=== PATIENT | male | born 1965 | race Caucasian/White ===

== ENCOUNTER → 2016-03-03 | Outpatient (CLI) | payer MEDICAID ==
[2016-03-03 12:47] LABS: ABSOLUTE EOSINOPHILS # (AUTO) 0.1 10^3/uL (0.0-0.6); ABSOLUTE LYMPHOCYTES (AUTO) 2.5 10^3/uL (0.5-4.7); ABSOLUTE MONOCYTES (AUTO) 0.7 10^3/uL (0.1-1.4); ABSOLUTE NEUT (AUTO) 5.7 10^3/uL (1.7-8.2); BASOPHILS % (AUTO) 0.5 % (0-2); EOSINOPHILS % (AUTO) 0.7 % (0-6); HEMATOCRIT 45.1 % (37.9-51.0); HEMOGLOBIN 14.9 g/dL (13.5-17.0); HGB HCT DIFFERENCE -0.4; LYMPHOCYTES % (AUTO) 27.2 % (13-45); MEAN CORPUSCULAR HGB CONC 33.1 g/dL (32.0-36.0); MEAN CORPUSCULAR VOLUME 91 fl (80-97); MONOCYTES % (AUTO) 8.1 % (3-13); RED BLOOD COUNT 4.97 10^6/uL (4.35-5.55); RED CELL DISTRIBUTION WIDTH 13.6 % (11.5-14.0); SEGMENTED NEUTROPHILS % (AUTO) 63.5 % (42-78)
[2016-03-03 12:53] LABS: PROTHROMBIN TIME 12.9 SEC (11.4-15.4)
[2016-03-03 12:54] LABS: PARTIAL THROMBOPLASTIN TIME 30.5 SEC (23.5-35.8)
[2016-03-03 13:13] LABS: ALANINE AMINOTRANSFERASE 24 U/L (21-72); ALBUMIN 4.9 g/dL (3.5-5.0); ALKALINE PHOSPHATASE 92 U/L (38-126); ANION GAP 14 (5-19); ASPARTATE AMINO TRANSFERASE 17 U/L (17-59); BILIRUBIN,TOTAL 0.7 mg/dL (0.2-1.3); BLOOD UREA NITROGEN 13 mg/dL (7-20); CARBON DIOXIDE 29 mmol/L (22-30); CHLORIDE 101 mmol/L (98-107); CREATININE RESULT 0.85 mg/dL (0.52-1.25); GLUCOSE 96 mg/dL (75-110); POTASSIUM 5.3 mmol/L (3.6-5.0); TOTAL PROTEIN 8.4 g/dL (6.3-8.2)
== END ==
LOC: OD 12:12
PROVIDERS: ATTEND Surgery
DX: I10 Essential (primary) hypertension (principal); Z86.19 Personal history of other infectious and parasitic diseases
CPT/HCPCS: 36415; 80053; 85025; 85610; 85730

== ENCOUNTER → 2016-03-09 | Outpatient (CLI) | payer MEDICAID | LOC: RAD 08:29 | PROVIDERS: ATTEND Surgery | DX: R10.9 Unspecified abdominal pain (principal); Z86.19 Personal history of other infectious and parasitic diseases; N20.0 Calculus of kidney; N28.1 Cyst of kidney, acquired | CPT/HCPCS: 74177 ==

== ENCOUNTER 2016-04-08 11:05 | Day surgery (SDC) | payer MEDICAID ==
--- NOTE | 2016-04-02 18:09 | EKG REPORT ---
SEVERITY:- OTHERWISE NORMAL ECG - SINUS OR ECTOPIC ATRIAL RHYTHM : Confirmed by: Carly Spain MD 02-Apr-2016 18:07:50
[~2016-04-08 11:05] MED LIST: ACETAMINOPHEN 325 MG TABLET PO PRN; CEFAZOLIN 1 GM/D5W RTU 1 GM/50 ML RTUPB IV PRN; DEXAMETHASONE SOD PHOSPHATE INJ 4 MG/1 ML VIAL ONE; GLYCOPYRROLATE INJ 0.4 MG/2 ML VIAL ONE; KETOROLAC TROMETHAMINE 60 MG/2 ML SDV ONE; LACTATED RINGERS 1000 ML IV PRN; LIDOCAINE 0.5% INJ-PF (5 MG/ML) 50 ML SDV SUBCUT PRN; LIDOCAINE 2% INJ-PF (20 MG/ML) 10 ML AMPUL ONE; METOCLOPRAMIDE HCL INJ/PF 10 MG/2 ML SDV ONE; NEOSTIGMINE METHYLSULFATE 10 MG/10 ML VIAL ONE; ONDANSETRON HCL INJ/PF 4 MG/2 ML SDV ONE; ROCURONIUM BROMIDE INJ 50 MG/5 ML VIAL IV ONE; SUCCINYLCHOLINE CHLORIDE INJ 200 MG/10 ML VIAL ONE
[2016-04-08] MEDS ORDERED: BUPIVACAINE HCL 0.25 % INJ/PF (2.5 MG/1 ML) 30 ML VIAL ONE (12:40)
[2016-04-08] MEDS ORDERED: HYDROMORPHONE HCL INJ/PF 2 MG/ML AMPULE ONE (13:35)
[2016-04-08] MEDS ORDERED: FENTANYL CITRATE INJ/PF 100 MCG/2 ML AMPUL ONE ×2 (13:35→13:52)
[2016-04-08] MEDS ORDERED: MIDAZOLAM 2 MG/2 ML INJ ONE (13:35)
[2016-04-08] MEDS ORDERED: PROPOFOL INJ 200 MG/20 ML VIAL IV ONE (13:36)
[2016-04-08] MEDS ORDERED: ACETAMINOPHEN 100 ML IV ONE (13:36)
[2016-04-08] MEDS ORDERED: MORPHINE SULFATE 10 MG/ML INJ ONE (13:52)
[2016-04-08] MEDS ORDERED: DEXMEDETOMIDINE INJ 80 MCG/20 ML VIAL IV ONE (13:52)
[2016-04-08] MEDS ORDERED: OXYCODONE-ACETAMINOPHEN 5-325 MG TABLET PO PRN ×3 (15:15→15:47)
[2016-04-08] MEDS ORDERED: FENTANYL CITRATE INJ/PF 100 MCG/2 ML AMPUL IV PRN ×3 (15:15)
[2016-04-08] MEDS ORDERED: PROMETHAZINE HCL INJ 25 MG/1 ML VIAL IV PRN ×2 (15:15)
[2016-04-08] MEDS ORDERED: MORPHINE SULFATE 10 MG/ML INJ IV PRN (15:15)
[2016-04-08] MEDS ORDERED: MEPERIDINE HCL/PF INJ 25 MG/1 ML DISP.SYRIN IV PRN (15:15)
[2016-04-08] MEDS ORDERED: DIPHENHYDRAMINE HCL 50 MG/ML VIAL IV PRN (15:15)
--- NOTE | 2016-04-08 15:44 | Operative Report ---
Operative Report DATE OF SURGERY: 04/08/16 PREOPERATIVE DIAGNOSIS: Ventral hernia POSTOPERATIVE DIAGNOSIS: Ventral hernia OPERATION: Ventral hernia repair SURGEON: KEN STEELE ANESTHESIA: GA TISSUE REMOVED OR ALTERED: Hernia sac COMPLICATIONS: None ESTIMATED BLOOD LOSS: minimal INTRAOPERATIVE FINDINGS: Herniation of preperitoneal fat about 4 cm above the umbilicus. PROCEDURE: Informed consent was obtained. Patient was brought to the operating room and placed on the operating room table in the supine position. After satisfactory induction of general anesthesia patient's abdomen was prepped and draped in usual sterile fashion. A supraumbilical midline incision was made and dissection was carried down. Hernia sac was identified it measured about 3 cm in size it was dissected free from the surrounding structures and the fascial defect was defined. The fascial defect only measured about 1.5 cm in size. The hernia sac was opened revealing no incarcerated contents but the hernia sac was composed of very thickened fatty preperitoneal fat. The hernia sac was excised and hernia sac was closed using running Vicryl suture. The fascial defect since it was small was repaired using interrupted Ethibond sutures with the closure oriented in the transverse direction. The repair came together well without any tension. The repair appeared secure. Marcaine was injected at the operative site. Skin was closed with deep dermal interrupted Vicryl sutures followed by running subcuticular Monocryl suture. Patient tolerated procedure well with no apparent complications and was taken to the recovery area in stable condition.
[2016-04-08] MEDS ORDERED: RINGERS SOLUTION,LACTATED 1,000 ML IV PRN (15:47)
[2016-04-08] MEDS ORDERED: ONDANSETRON HCL INJ/PF 4 MG/2 ML SDV IV PRN (15:47)
--- NOTE | 2016-04-08 15:47 | PDOC DISCHARGE SUMMARY ---
Discharge Summary (SDC) - Discharge Final Diagnosis: Ventral hernia. Date of Surgery: 04/08/16 Discharge Date: 04/08/16 Condition: Good Treatment or Instructions: Ventral hernia repair. May discharge the patient home when met discharge criteria. Follow-up with me in 2 weeks. Stay active but avoid strenuous activity. May shower in 2 days. Keep Steri-Strips on. Prescriptions: Oxycodone HCl/Acetaminophen [Percocet 5-325 mg Tablet] 1 tab PO ASDIR PRN #25 tablet PRN Reason: Discharge Diet: As Tolerated Discharge Activity: Activity As Tolerated - Stay active but avoid strenuous activity. Report the Following to Your Physician Immediately: Fever over 101 Degrees, Unusual Bleeding, Redness, Drainage-Foul Smelling
[2016-04-08] MEDS: FENTANYL CITRATE INJ/PF 100 MCG/2 ML AMPUL ONE ×2 (15:56→16:01)
[2016-04-08 17:31] VITALS: BP 156/91
== END 2016-04-08 17:30 | disposition home or self-care (01) ==
LOC: OROUT 11:05
PROVIDERS: ATTEND Surgery
PROC: 0WQF0ZZ Repair Abdominal Wall, Open Approach (ICD-10-PCS; principal; 2016-04-08 13:30)
DX: K43.9 Ventral hernia without obstruction or gangrene (principal); I10 Essential (primary) hypertension; K21.9 Gastro-esophageal reflux disease without esophagitis; Z86.19 Personal history of other infectious and parasitic diseases; M19.90 Unspecified osteoarthritis, unspecified site; Z87.891 Personal history of nicotine dependence; Z79.899 Other long term (current) drug therapy; Z79.51 Long term (current) use of inhaled steroids; Z88.8 Allergy status to other drugs, medicaments and biological substances
CPT/HCPCS: 93005; 36415; 84132; 88302 ×2; 93010; 49560; J2250; J0690; J3490 ×4; J1100; J1885; J3010; J2765; J0330; J2405; S0020; J2704; J0131; 752; J1170; J2270

== ENCOUNTER 2016-08-14 00:46 | Emergency (ER) | payer MEDICAID ==
[2016-08-14 01:33] LABS: APPEARANCE,URINE CLEAR; BILIRUBIN,URINE NEGATIVE (NEGATIVE); GLUCOSE, URINE NEGATIVE (NEGATIVE); KETONES,URINE NEGATIVE (NEGATIVE); LEUKOCYTE ESTERASE,URINE NEGATIVE (NEGATIVE); NITRITE,URINE NEGATIVE (NEGATIVE); PROTEIN,URINE NEGATIVE (NEGATIVE); URINE SPECIFIC GRAVITY 1.002; UROBILINOGEN,URINE NEGATIVE mg/dL (<2.0)
[2016-08-14 01:37] LABS: ABSOLUTE LYMPHOCYTES (AUTO) 2.1 10^3/uL (0.5-4.7); ABSOLUTE MONOCYTES (AUTO) 0.5 10^3/uL (0.1-1.4); ABSOLUTE NEUT (AUTO) 5.7 10^3/uL (1.7-8.2); BASOPHILS % (AUTO) 0.4 % (0-2); EOSINOPHILS % (AUTO) 0.3 % (0-6); HEMATOCRIT 43.5 % (37.9-51.0); HEMOGLOBIN 14.7 g/dL (13.5-17.0); HGB HCT DIFFERENCE 0.6; LYMPHOCYTES % (AUTO) 24.8 % (13-45); MEAN CORPUSCULAR HEMOGLOBIN 31.1 pg (27.0-33.4); MEAN CORPUSCULAR HGB CONC 33.8 g/dL (32.0-36.0); MEAN CORPUSCULAR VOLUME 92 fl (80-97); MONOCYTES % (AUTO) 5.9 % (3-13); RED BLOOD COUNT 4.73 10^6/uL (4.35-5.55); RED CELL DISTRIBUTION WIDTH 14.5 % (11.5-14.0); SEGMENTED NEUTROPHILS % (AUTO) 68.6 % (42-78); WHITE BLOOD COUNT 8.3 10^3/uL (4.0-10.5)
[2016-08-14 01:44] LABS: URINE BARBITURATES SCREEN NEGATIVE; URINE METHADONE SCREEN NEGATIVE; URINE OPIATES LOW NEGATIVE; URINE PHENCYCLIDINE SCREEN NEGATIVE
[2016-08-14 01:52] LABS: ALANINE AMINOTRANSFERASE 29 U/L (21-72); ALBUMIN 5.1 g/dL (3.5-5.0); ALCOHOL 194 mg/dL (NONE DETECTED); ALKALINE PHOSPHATASE 71 U/L (38-126); ANION GAP 19 (5-19); ASPARTATE AMINO TRANSFERASE 28 U/L (17-59); BILIRUBIN,DIRECT 0.3 mg/dL (0.0-0.4); BILIRUBIN,TOTAL 0.6 mg/dL (0.2-1.3); BLOOD UREA NITROGEN 10 mg/dL (7-20); CARBON DIOXIDE 19 mmol/L (22-30); CHLORIDE 105 mmol/L (98-107); CREATININE RESULT 0.69 mg/dL (0.52-1.25); GLUCOSE 98 mg/dL (75-110); POTASSIUM 3.7 mmol/L (3.6-5.0); SODIUM 142.9 mmol/L (137-145); TOTAL PROTEIN 8.2 g/dL (6.3-8.2)
[2016-08-14] MEDS ORDERED: LORAZEPAM INJ 2 MG/1 ML VIAL IV ONE (01:52)
[2016-08-14] MEDS ORDERED: HALOPERIDOL LACTATE INJ 5 MG/1 ML VIAL IM ONE (01:52)
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
[2016-08-14] MEDS ORDERED: GABAPENTIN 300 MG CAPSULE PO SCH (06:00)
--- NOTE | 2016-08-14 07:36 | ER Document Report ---
Doctor's Note Notes: 08/14/16 07:35 I was notified that the patient is hypotensive, blood pressure is 81/40, I did note that the patient is resting comfortably. Patient was bolused 1 L initially a second liter has been ordered now, he admits that he has a history of high blood pressure and took his lisinopril last night, patient denies taking more than he was supposed to, denies attempting to harm himself with blood pressure medication
[2016-08-14] MEDS: NORMAL SALINE 1000 ML 1,000 ML IV PRN ×2 (07:39→08:38)
[2016-08-14] MEDS ORDERED: NORMAL SALINE 1000 ML 1,000 ML IV ONE (08:33)
--- NOTE | 2016-08-14 09:19 | EKG REPORT ---
SEVERITY:- OTHERWISE NORMAL ECG - SINUS RHYTHM BORDERLINE RIGHT AXIS DEVIATION : Confirmed by: Rowdy Lopez MD 14-Aug-2016 09:17:34
--- NOTE | 2016-08-14 09:38 | RADIOLOGY REPORT (SQ) ---
EXAM DESCRIPTION: CT HEAD WITHOUT COMPLETED DATE/TIME: 08/14/2016 9:23 am REASON FOR STUDY: falling COMPARISON: September 2014 TECHNIQUE: Axial images acquired through the brain without intravenous contrast. Images reviewed wi th bone, brain and subdural windows. Images stored on PACS. All CT scanners at this facility use dose modulation, iterative reconstruction, and/or weight based d osing when appropriate to reduce radiation dose to as low as reasonably achievable (ALARA). [facility]: Dose Right [facility]: CareDose [facility]: Dose Right [facility]: Teradose 4D [facility]: [place] RADIATION DOSE: Up-to-date CT equipment and radiation dose reduction techniques were employed. CTDIv ol: 64.6 mGy. DLP: 1163 mGy-cm. mGy. LIMITATIONS: None. FINDINGS: VENTRICLES: Normal size and contour. CEREBRUM: No masses. No hemorrhage. No midline shift. Normal lowe/white matter differentiation. N o evidence for acute infarction. CEREBELLUM: No masses. No hemorrhage. No alteration of density. No evidence for acute infarction. EXTRAAXIAL SPACES: No fluid collections. No masses. ORBITS AND GLOBE: No intra- or extraconal masses. Normal contour of globe without masses. CALVARIUM: No fracture. PARANASAL SINUSES: No fluid or mucosal thickening. SOFT TISSUES: No mass or hematoma. OTHER: No other significant finding. IMPRESSION: NORMAL BRAIN CT WITHOUT CONTRAST. TECHNICAL DOCUMENTATION: JOB ID: [id number] Quality ID # [id number]: Final reports with documentation of one or more dose reduction techniques (e.g., Au tomated exposure control, adjustment of the mA and/or kV according to patient size, use of iterative reconstruction technique) 2010 [employer]- All Rights Reserved
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
--- NOTE | 2016-08-14 09:56 | RADIOLOGY REPORT (SQ) ---
EXAM DESCRIPTION: CHEST SINGLE VIEW COMPLETED DATE/TIME: 08/14/2016 9:45 am REASON FOR STUDY: chest pain COMPARISON: April 2014 EXAM PARAMETERS: NUMBER OF VIEWS: One view. TECHNIQUE: Single frontal radiographic view of the chest acquired. RADIATION DOSE: NA LIMITATIONS: None. FINDINGS: LUNGS AND PLEURA: No opacities, masses or pneumothorax. No pleural effusion. MEDIASTINUM AND HILAR STRUCTURES: No masses. Contour normal. HEART AND VASCULAR STRUCTURES: Heart normal in size. Normal vasculature. BONES: No acute findings. HARDWARE: None in the chest. OTHER: No other significant finding. IMPRESSION: NO ACUTE RADIOGRAPHIC FINDING IN THE CHEST. TECHNICAL DOCUMENTATION: JOB ID: [id number]
[2016-08-14] MEDS ORDERED: LISINOPRIL 10 MG TABLET PO SCH (10:00)
[2016-08-14] MEDS ORDERED: HYDROCHLOROTHIAZIDE 12.5 MG CAPSULE PO SCH (10:00)
[2016-08-14 10:37] LABS: ABSOLUTE EOSINOPHILS # (AUTO) 0.1 10^3/uL (0.0-0.6); ABSOLUTE LYMPHOCYTES (AUTO) 1.9 10^3/uL (0.5-4.7); ABSOLUTE MONOCYTES (AUTO) 0.4 10^3/uL (0.1-1.4); ABSOLUTE NEUT (AUTO) 3.4 10^3/uL (1.7-8.2); BASOPHILS % (AUTO) 0.4 % (0-2); HEMATOCRIT 39.4 % (37.9-51.0); HEMOGLOBIN 13.2 g/dL (13.5-17.0); HGB HCT DIFFERENCE 0.2; LYMPHOCYTES % (AUTO) 33.3 % (13-45); MEAN CORPUSCULAR HEMOGLOBIN 31.5 pg (27.0-33.4); MEAN CORPUSCULAR HGB CONC 33.6 g/dL (32.0-36.0); MEAN CORPUSCULAR VOLUME 94 fl (80-97); MONOCYTES % (AUTO) 6.7 % (3-13); RED CELL DISTRIBUTION WIDTH 14.3 % (11.5-14.0); SEGMENTED NEUTROPHILS % (AUTO) 58.6 % (42-78); WHITE BLOOD COUNT 5.7 10^3/uL (4.0-10.5)
[2016-08-14 11:00] LABS: ALANINE AMINOTRANSFERASE 32 U/L (21-72); ALKALINE PHOSPHATASE 64 U/L (38-126); ANION GAP 12 (5-19); ASPARTATE AMINO TRANSFERASE 44 U/L (17-59); BILIRUBIN,DIRECT 0.3 mg/dL (0.0-0.4); BILIRUBIN,TOTAL 0.5 mg/dL (0.2-1.3); BLOOD UREA NITROGEN 12 mg/dL (7-20); CALCIUM 8.6 mg/dL (8.4-10.2); CARBON DIOXIDE 19 mmol/L (22-30); CHLORIDE 114 mmol/L (98-107); CREATINE KINASE 519 U/L (55-170); CREATININE RESULT 0.84 mg/dL (0.52-1.25); GLUCOSE 79 mg/dL (75-110); POTASSIUM 3.9 mmol/L (3.6-5.0); SODIUM 144.7 mmol/L (137-145); TOTAL PROTEIN 6.8 g/dL (6.3-8.2)
[2016-08-14 11:13] LABS: CREATINE KINASE MB 4.73 ng/mL (<4.55)
[2016-08-14 11:14] LABS: TROPONIN I < 0.012 ng/mL
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
[2016-08-14 12:31] VITALS: BP 106/53
--- NOTE | 2016-08-14 16:39 | EKG REPORT ---
SEVERITY:- OTHERWISE NORMAL ECG - SINUS RHYTHM BORDERLINE RIGHT AXIS DEVIATION : Confirmed by: Rowdy Lopez MD 14-Aug-2016 16:38:45
== END 2016-08-14 12:43 | disposition home or self-care (01) ==
LOC: ER 00:46
DX: R45.851 Suicidal ideations (principal); F10.20 Alcohol dependence, uncomplicated; F13.99 Sedative, hypnotic or anxiolytic use, unspecified with unspecified sedative, hypnotic or anxiolytic-induced disorder; I10 Essential (primary) hypertension; J44.9 Chronic obstructive pulmonary disease, unspecified
CPT/HCPCS: 93005; 99285; 96372; 96361; 96374; 36415; 82553; 80307 ×4; 82550; 84443; 85025; 80053; 81001; 84484; 71010; 70450; 93010; J1630; J3490; J2060; J7030

== ENCOUNTER 2016-11-24 09:44 | Day surgery (SDC) | payer MEDICAID ==
[~2016-11-24 09:44] MED LIST changes: -ACETAMINOPHEN 325 MG TABLET PO PRN; -CEFAZOLIN 1 GM/D5W RTU 1 GM/50 ML RTUPB IV PRN; +CHONDR SU A NA/HYALUR INTRAOC KIT (SURGICARE) ONE; -DEXAMETHASONE SOD PHOSPHATE INJ 4 MG/1 ML VIAL ONE; +EPINEPHRINE INJ/PF 1 MG/1 ML AMPULE ONE; -GLYCOPYRROLATE INJ 0.4 MG/2 ML VIAL ONE; +KETOROLAC TROMETHAMINE 0.45% 4 DROP/0.4 ML DROPERETTE OD PRN; -KETOROLAC TROMETHAMINE 60 MG/2 ML SDV ONE; -LACTATED RINGERS 1000 ML IV PRN; -LIDOCAINE 0.5% INJ-PF (5 MG/ML) 50 ML SDV SUBCUT PRN; +LIDOCAINE 1% INJ-PF (10 MG/ML) 30 ML SDV ONE; -LIDOCAINE 2% INJ-PF (20 MG/ML) 10 ML AMPUL ONE; -METOCLOPRAMIDE HCL INJ/PF 10 MG/2 ML SDV ONE; -NEOSTIGMINE METHYLSULFATE 10 MG/10 ML VIAL ONE; -ONDANSETRON HCL INJ/PF 4 MG/2 ML SDV ONE; -ROCURONIUM BROMIDE INJ 50 MG/5 ML VIAL IV ONE; -SUCCINYLCHOLINE CHLORIDE INJ 200 MG/10 ML VIAL ONE; +TOBRAMYCIN SULFATE/DEXAMETH OPH OINTMENT 3.5 GM ONE
[2016-11-24] MEDS: BESIFLOXACIN HCL 0.6% OPH SUSP 5 ML BOTTLE OD PRN ×3 (10:02→10:54)
[2016-11-24] MEDS: CYCLOPENTOLATE 0.2%/PHENYLEPHRINE 1% OPH SOLN 2 ML OD PRN ×3 (10:02→10:22)
[2016-11-24] MEDS: TROPICAMIDE 1% OPH SOLN 3 ML OD PRN ×3 (10:02→10:22)
[2016-11-24] MEDS: TETRACAINE HCL 0.5% OPH SOLN 0.6 ML DROPERETTE OD PRN ×3 (10:03→10:37)
[2016-11-24] MEDS ORDERED: MIDAZOLAM 2 MG/2 ML INJ ONE (10:26)
== END 2016-11-24 11:27 | disposition home or self-care (01) ==
LOC: SC 09:44
PROVIDERS: ATTEND Ophthalmology
PROC: 08RJ3JZ Replacement of Right Lens with Synthetic Substitute, Percutaneous Approach (ICD-10-PCS; principal; 2016-11-24 10:45)
DX: H25.11 Age-related nuclear cataract, right eye (principal); F17.210 Nicotine dependence, cigarettes, uncomplicated; M19.90 Unspecified osteoarthritis, unspecified site; I10 Essential (primary) hypertension; H53.459 Other localized visual field defect, unspecified eye; J44.9 Chronic obstructive pulmonary disease, unspecified; R01.1 Cardiac murmur, unspecified; K21.9 Gastro-esophageal reflux disease without esophagitis; Z79.899 Other long term (current) drug therapy; Z79.891 Long term (current) use of opiate analgesic
CPT/HCPCS: 66984; V2630; J2250; J3490 ×5; J0171; 142

== ENCOUNTER 2017-02-11 16:18 | Emergency (ER) | payer MEDICAID ==
[2017-02-11] MEDS ORDERED: HALOPERIDOL LACTATE INJ 5 MG/1 ML VIAL IM ONE (16:20)
[2017-02-11] MEDS ORDERED: DIPHENHYDRAMINE HCL 50 MG/ML VIAL IM ONE (16:20)
[2017-02-11] MEDS ORDERED: LORAZEPAM INJ 2 MG/1 ML VIAL IM ONE (16:20)
[2017-02-11] MEDS ORDERED: DIPH/PERTUSS(ACELL)/TETANUS VAC/PF 0.5 ML SYR (>=10YO) IM ONE (16:23)
[2017-02-11] MEDS ORDERED: LIDOCAINE 1%/EPINEPHRINE INJ 20 ML VIAL INJ ONE (16:24)
--- NOTE | 2017-02-11 17:00 | RADIOLOGY REPORT (SQ) ---
EXAM DESCRIPTION: CT HEAD WITHOUT COMPLETED DATE/TIME: 02/11/2017 4:52 pm REASON FOR STUDY: head injury, agitated COMPARISON: None. TECHNIQUE: Axial images acquired through the brain without intravenous contrast. Images reviewed wi th bone, brain and subdural windows. Images stored on PACS. All CT scanners at this facility use dose modulation, iterative reconstruction, and/or weight based d osing when appropriate to reduce radiation dose to as low as reasonably achievable (ALARA). [facility]: Dose Right [facility]: CareDose [facility]: Dose Right [facility]: Teradose 4D [facility]: Smart [employer] RADIATION DOSE: CT Rad equipment meets quality standard of care and radiation dose reduction techniq ues were employed. CTDIvol: 64.6 mGy. DLP: 1163 mGy-cm. mGy. LIMITATIONS: None. FINDINGS: VENTRICLES: Normal size and contour. CEREBRUM: No masses. No hemorrhage. No midline shift. No evidence for acute infarction. Normal gra y/white matter differentiation. No areas of low density in the white matter. CEREBELLUM: No masses. No hemorrhage. No alteration of density. No evidence for acute infarction. EXTRAAXIAL SPACES: No fluid collections. No masses. ORBITS AND GLOBE: No intra- or extraconal masses. Normal contour of globe without masses. CALVARIUM: No fracture. PARANASAL SINUSES: No fluid or mucosal thickening. SOFT TISSUES: No mass or hematoma. OTHER: Nasal bone fractures. IMPRESSION: No acute intracranial process. EVIDENCE OF ACUTE STROKE: NO. COMMENT: Quality ID # [id number]: Final reports with documentation of one or more dose reduction techniques (e.g., Automated exposure control, adjustment of the mA and/or kV according to patient size, use of iterative reconstruction technique) TECHNICAL DOCUMENTATION: JOB ID: [id number] [employer]- All Rights Reserved
--- NOTE | 2017-02-11 17:01 | RADIOLOGY REPORT (SQ) ---
EXAM DESCRIPTION: CT FACIAL AREA WITHOUT COMPLETED DATE/TIME: 02/11/2017 4:51 pm REASON FOR STUDY: head injury, agitated COMPARISON: None. TECHNIQUE: Noncontrasted images through the facial bones and orbits windowed for bone and soft tissu e. Additional coronal and sagittal reconstructed images reviewed. All images stored on PACS. All CT scanners at this facility use dose modulation, iterative reconstruction, and/or weight based d osing when appropriate to reduce radiation dose to as low as reasonably achievable (ALARA). [facility]: Dose Right [facility]: CareDose [facility]: Dose Right [facility]: Teradose 4D [facility]: Smart [employer] RADIATION DOSE: CT Rad equipment meets quality standard of care and radiation dose reduction techniq ues were employed. CTDIvol: 30.4 mGy. DLP: 699 mGy-cm. mGy. LIMITATIONS: None. FINDINGS: FACIAL BONES: Comminuted minimally displaced nasal bone fractures. ORBITS: Intact. No fracture. Symmetric intact globes and retroorbital soft tissues. PARANASAL SINUSES: Clear. No significant mucosal thickening, mass or fluid. No nasal polyps. Maxill coco sinus outlets are patent. SOFT TISSUES: No mass or edema. INFERIOR BRAIN: Limited view. No acute findings. OTHER: No other significant finding. IMPRESSION: Comminuted minimally displaced nasal bone fractures. TECHNICAL DOCUMENTATION: JOB ID: [id number] Quality ID # [id number]: Final reports with documentation of one or more dose reduction techniques (e.g., Au tomated exposure control, adjustment of the mA and/or kV according to patient size, use of iterative reconstruction technique) 2010 [employer]- All Rights Reserved
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
[2017-02-11] MEDS ORDERED: LIDOCAINE 2%/EPINEPHRINE INJ 20 ML VIAL INJ ONE (17:19)
[2017-02-11 18:03] LABS: ABSOLUTE LYMPHOCYTES (AUTO) 1.8 10^3/uL (0.5-4.7); ABSOLUTE MONOCYTES (AUTO) 0.4 10^3/uL (0.1-1.4); ABSOLUTE NEUT (AUTO) 7.3 10^3/uL (1.7-8.2); ALANINE AMINOTRANSFERASE 88 U/L (21-72); ALBUMIN 4.7 g/dL (3.5-5.0); ALCOHOL 246 mg/dL (NONE DETECTED); ALKALINE PHOSPHATASE 78 U/L (38-126); ASPARTATE AMINO TRANSFERASE 57 U/L (17-59); BASOPHILS % (AUTO) 0.2 % (0-2); BILIRUBIN,DIRECT 0.3 mg/dL (0.0-0.4); BILIRUBIN,TOTAL 0.4 mg/dL (0.2-1.3); BLOOD UREA NITROGEN 11 mg/dL (7-20); EOSINOPHILS % (AUTO) 0.3 % (0-6); GLUCOSE 100 mg/dL (75-110); HEMATOCRIT 42.6 % (37.9-51.0); HEMOGLOBIN 14.6 g/dL (13.5-17.0); MEAN CORPUSCULAR HEMOGLOBIN 32.4 pg (27.0-33.4); MEAN CORPUSCULAR HGB CONC 34.2 g/dL (32.0-36.0); MEAN CORPUSCULAR VOLUME 95 fl (80-97); MONOCYTES % (AUTO) 4.6 % (3-13); PLATELET COUNT 332 10^3/uL (150-450); RED BLOOD COUNT 4.51 10^6/uL (4.35-5.55); RED CELL DISTRIBUTION WIDTH 14.1 % (11.5-14.0); SEGMENTED NEUTROPHILS % (AUTO) 75.9 % (42-78); TOTAL CELLS COUNTED % (AUTO) 100 %; TOTAL PROTEIN 7.3 g/dL (6.3-8.2); WHITE BLOOD COUNT 9.6 10^3/uL (4.0-10.5)
[2017-02-11 18:11] LABS: ANION GAP 17 (5-19); CARBON DIOXIDE 21 mmol/L (22-30); CHLORIDE 104 mmol/L (98-107); POTASSIUM 3.8 mmol/L (3.6-5.0); SODIUM 142.2 mmol/L (137-145)
[2017-02-11 18:14] LABS: ACETAMINOPHEN < 10 ug/mL (10-30); SALICYLATE < 1.0 mg/dL (2.0-20.0)
[2017-02-12 01:35] LABS: APPEARANCE,URINE CLEAR; BILIRUBIN,URINE NEGATIVE (NEGATIVE); COLOR,URINE YELLOW; GLUCOSE, URINE NEGATIVE (NEGATIVE); KETONES,URINE NEGATIVE (NEGATIVE); LEUKOCYTE ESTERASE,URINE NEGATIVE (NEGATIVE); NITRITE,URINE NEGATIVE (NEGATIVE); PROTEIN,URINE NEGATIVE (NEGATIVE); URINE SPECIFIC GRAVITY 1.006; UROBILINOGEN,URINE NEGATIVE mg/dL (<2.0)
[2017-02-12 02:27] LABS: URINE AMPHETAMINES SCREEN NEGATIVE; URINE BARBITURATES SCREEN NEGATIVE; URINE BENZODIAZEPINES SCREEN NEGATIVE; URINE COCAINE SCREEN NEGATIVE; URINE MARIJUANA (THC) SCREEN NEGATIVE; URINE METHADONE SCREEN NEGATIVE; URINE PHENCYCLIDINE SCREEN NEGATIVE
[2017-02-12] MEDS ORDERED: DIPH/PERTUSS(ACELL)/TETANUS VAC/PF 0.5 ML SYR (>=10YO) IM ONE (06:45)
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
[2017-02-12] MEDS ORDERED: LIDOCAINE 1%/EPINEPHRINE INJ 20 ML VIAL INJ ONE (09:50)
[2017-02-12] MEDS ORDERED: LIDOCAINE 4%/TETRACAINE 0.5%/EPI 0.18% 5 ML TOPICAL SOLN TOP ONE (09:51)
--- NOTE | 2017-02-12 11:53 | EKG REPORT ---
SEVERITY:- NORMAL ECG - SINUS RHYTHM : Confirmed by: Grzegorz Prather 12-Feb-2017 11:52:37
[2017-02-12 12:16] VITALS: BP 150/94
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
== END 2017-02-12 12:10 | disposition home or self-care (01) ==
LOC: ER 16:18
PROC: 0HQ1XZZ Repair Face Skin, External Approach (ICD-10-PCS; principal; 2017-02-11)
DX: S02.2XXA Fracture of nasal bones, initial encounter for closed fracture (principal); S01.81XA Laceration without foreign body of other part of head, initial encounter; F10.121 Alcohol abuse with intoxication delirium; R45.851 Suicidal ideations; R45.850 Homicidal ideations; Y04.2XXA Assault by strike against or bumped into by another person, initial encounter; Y92.009 Unspecified place in unspecified non-institutional (private) residence as the place of occurrence of the external cause; I10 Essential (primary) hypertension; Z87.442 Personal history of urinary calculi; E78.00 Pure hypercholesterolemia, unspecified; Z90.49 Acquired absence of other specified parts of digestive tract; Z23 Encounter for immunization
CPT/HCPCS: 93005; 99285; 96372; 90471; 96374; 36415; 80307 ×4; 85025; 80053; 81001; 70450; 70486; 90715; 93010; 12014; J1200; J1630; J3490 ×2; J2060

== ENCOUNTER 2017-02-19 16:48 | Emergency (ER) | payer MEDICAID ==
[2017-02-19] MEDS ORDERED: LORAZEPAM INJ 2 MG/1 ML VIAL IV ONE (17:14)
[2017-02-19] MEDS ORDERED: LORAZEPAM INJ 2 MG/1 ML VIAL ONE (17:23)
[2017-02-19 19:46] LABS: ABSOLUTE BASOPHILS # (AUTO) 0.1 10^3/uL (0.0-0.2); ABSOLUTE EOSINOPHILS # (AUTO) 0.1 10^3/uL (0.0-0.6); ABSOLUTE LYMPHOCYTES (AUTO) 2.7 10^3/uL (0.5-4.7); ABSOLUTE MONOCYTES (AUTO) 0.4 10^3/uL (0.1-1.4); ABSOLUTE NEUT (AUTO) 5.4 10^3/uL (1.7-8.2); BASOPHILS % (AUTO) 0.9 % (0-2); EOSINOPHILS % (AUTO) 1.4 % (0-6); HEMATOCRIT 39.5 % (37.9-51.0); HEMOGLOBIN 13.6 g/dL (13.5-17.0); LYMPHOCYTES % (AUTO) 30.9 % (13-45); MEAN CORPUSCULAR HEMOGLOBIN 32.3 pg (27.0-33.4); MEAN CORPUSCULAR HGB CONC 34.3 g/dL (32.0-36.0); MEAN CORPUSCULAR VOLUME 94 fl (80-97); MONOCYTES % (AUTO) 4.7 % (3-13); PLATELET COUNT 305 10^3/uL (150-450); RED BLOOD COUNT 4.19 10^6/uL (4.35-5.55); RED CELL DISTRIBUTION WIDTH 14.3 % (11.5-14.0); SEGMENTED NEUTROPHILS % (AUTO) 62.1 % (42-78); TOTAL CELLS COUNTED % (AUTO) 100 %; WHITE BLOOD COUNT 8.7 10^3/uL (4.0-10.5)
[2017-02-19 20:12] LABS: ALANINE AMINOTRANSFERASE 61 U/L (21-72); ALBUMIN 4.4 g/dL (3.5-5.0); ALCOHOL 186 mg/dL (NONE DETECTED); ALKALINE PHOSPHATASE 67 U/L (38-126); ANION GAP 15 (5-19); ASPARTATE AMINO TRANSFERASE 53 U/L (17-59); BILIRUBIN,DIRECT 0.5 mg/dL (0.0-0.4); BILIRUBIN,TOTAL 0.8 mg/dL (0.2-1.3); BLOOD UREA NITROGEN 14 mg/dL (7-20); CALCIUM 9.9 mg/dL (8.4-10.2); CARBON DIOXIDE 23 mmol/L (22-30); CHLORIDE 109 mmol/L (98-107); CREATINE KINASE 155 U/L (55-170); GLUCOSE 136 mg/dL (75-110); MAGNESIUM 2.3 mg/dL (1.6-2.3); POTASSIUM 3.7 mmol/L (3.6-5.0); SODIUM 147.1 mmol/L (137-145); TOTAL PROTEIN 6.9 g/dL (6.3-8.2)
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
[2017-02-19] MEDS ORDERED: TRAZODONE HCL 50 MG TABLET PO SCH (22:30)
[2017-02-20 00:59] LABS: URINE AMPHETAMINES SCREEN NEGATIVE; URINE BARBITURATES SCREEN NEGATIVE; URINE BENZODIAZEPINES SCREEN NEGATIVE; URINE MARIJUANA (THC) SCREEN NEGATIVE; URINE METHADONE SCREEN NEGATIVE; URINE PHENCYCLIDINE SCREEN NEGATIVE
[2017-02-20 01:12] LABS: URINE COCAINE SCREEN NEGATIVE
[2017-02-20] MEDS ORDERED: OXYCODONE HCL SR 10 MG TABLET PO ONE (03:07)
[2017-02-20 03:13] VITALS: BP 121/84
[2017-02-20] MEDS ORDERED: LISINOPRIL 10 MG TABLET PO SCH (08:00)
[2017-02-20] MEDS ORDERED: HYDROCHLOROTHIAZIDE 12.5 MG CAPSULE PO SCH (08:00)
--- NOTE | 2017-02-20 08:52 | EKG REPORT ---
SEVERITY:- NORMAL ECG - SINUS RHYTHM : Confirmed by: Rowdy Lopez MD 20-Feb-2017 08:52:06
[2017-02-20] MEDS ORDERED: PREGABALIN 100 MG CAPSULE PO SCH (10:00)
== END 2017-02-20 03:50 | disposition home or self-care (01) ==
LOC: ER 16:48
DX: F10.929 Alcohol use, unspecified with intoxication, unspecified (principal); F32.9 Major depressive disorder, single episode, unspecified; S01.112D Laceration without foreign body of left eyelid and periocular area, subsequent encounter; S01.81XD Laceration without foreign body of other part of head, subsequent encounter; W06.XXXD Fall from bed, subsequent encounter; Z78.1 Physical restraint status; E78.00 Pure hypercholesterolemia, unspecified; I10 Essential (primary) hypertension; Z90.49 Acquired absence of other specified parts of digestive tract
CPT/HCPCS: 93005; 99285; 96372; 36415; 80307 ×2; 82550; 83735; 85025; 80053; 84484; 93010; J2060; J3490

== ENCOUNTER 2017-06-15 10:46 | Emergency (ER) | payer MEDICAID ==
[2017-06-15 10:55] VITALS: BP 138/84
--- NOTE | 2017-06-15 11:03 | ER Document Report ---
ED Medical Screen (RME) - General Chief Complaint: Psych Problem Stated Complaint: PSYCH EVAL Time Seen by Provider: 06/15/17 10:59 TRAVEL OUTSIDE OF THE U.[place]. IN LAST 30 DAYS: No - HPI Notes: 06/15/17 11:02 Patient coming in for psychiatric evaluation patient was seen by [facility] provider today recommended patient come to the ER for placement. - Related Data Allergies/Adverse Reactions: No Known Allergies Allergy (Verified 06/15/17 10:49) Past Medical History - Past Medical History Cardiac Medical History: Reports: Hx Hypercholesterolemia, Hx Hypertension Denies: Hx Coronary Artery Disease, Hx Heart Attack Pulmonary Medical History: Reports: Hx Bronchitis - hx of, Hx COPD - inhalers, Hx Sleep Apnea, Hx Tuberculosis - 2 years ago Denies: Hx Asthma, Hx Pneumonia Neurological Medical History: Denies: Hx Cerebrovascular Accident, Hx Seizures Renal/ Medical History: Reports: Hx Kidney Stones. Denies: Hx Peritoneal Dialysis GI Medical History: Reports: Hx Gastroesophageal Reflux Disease, Hx Hiatal Hernia, Hx Pancreatitis - ETOH. Denies: Hx Hepatitis, Hx Ulcer Musculoskeltal Medical History: Reports Hx Arthritis - mild Psychiatric Medical History: Reports: Hx Anxiety, Hx Bipolar Disorder, Hx Depression Infectious Medical History: Denies: Hx Hepatitis Past Surgical History: Reports: Hx Cholecystectomy, Hx Orthopedic Surgery - Injured left leg, Hx Pancreatic Surgery. Denies: Hx Appendectomy, Hx Bowel Surgery, Hx Coronary Artery Bypass Graft, Hx Gastric Bypass Surgery, Hx Herniorrhaphy, Hx Open Heart Surgery, Hx Pacemaker, Hx Tonsillectomy, Hx Urinary Tract Surgery, Hx Vascular Surgery - Immunizations Hx Diphtheria, Pertussis, Tetanus Vaccination: Yes Review of Systems - Review of Systems Neurological/Psychological: Other - Psychiatric evaluation Physical Exam - Vital signs Vitals: Temp Pulse Resp BP Pulse Ox 98.8 F 83 20 138/84 H 95 06/15/17 10:53 06/15/17 10:53 06/15/17 10:53 06/15/17 10:53 06/15/17 10:53 - General General appearance: Appears well In distress: None - Psychological Associated symptoms: Flat affect Course - Vital Signs Vital signs: Temp Pulse Resp BP Pulse Ox 98.8 F 83 20 138/84 H 95 06/15/17 10:53 06/15/17 10:53 06/15/17 10:53 06/15/17 10:53 06/15/17 10:53
[2017-06-15] MEDS ORDERED: NICOTINE 14 MG/24 HR PATCH.TD24 TD ONE (11:11)
[2017-06-15 12:03] LABS: ABSOLUTE BASOPHILS # (AUTO) 0.1 10^3/uL (0.0-0.2); ABSOLUTE EOSINOPHILS # (AUTO) 0.1 10^3/uL (0.0-0.6); ABSOLUTE LYMPHOCYTES (AUTO) 1.1 10^3/uL (0.5-4.7); ABSOLUTE MONOCYTES (AUTO) 0.4 10^3/uL (0.1-1.4); ABSOLUTE NEUT (AUTO) 5.9 10^3/uL (1.7-8.2); BASOPHILS % (AUTO) 0.8 % (0-2); HEMATOCRIT 44.4 % (37.9-51.0); HEMOGLOBIN 15.5 g/dL (13.5-17.0); LYMPHOCYTES % (AUTO) 15.2 % (13-45); MEAN CORPUSCULAR HEMOGLOBIN 31.5 pg (27.0-33.4); MEAN CORPUSCULAR VOLUME 90 fl (80-97); MONOCYTES % (AUTO) 5.3 % (3-13); PLATELET COUNT 257 10^3/uL (150-450); RED BLOOD COUNT 4.93 10^6/uL (4.35-5.55); RED CELL DISTRIBUTION WIDTH 13.6 % (11.5-14.0); SEGMENTED NEUTROPHILS % (AUTO) 77.7 % (42-78); TOTAL CELLS COUNTED % (AUTO) 100 %; WHITE BLOOD COUNT 7.6 10^3/uL (4.0-10.5)
[2017-06-15 12:09] LABS: APPEARANCE,URINE CLEAR; BILIRUBIN,URINE NEGATIVE (NEGATIVE); COLOR,URINE YELLOW; GLUCOSE, URINE NEGATIVE (NEGATIVE); KETONES,URINE NEGATIVE (NEGATIVE); LEUKOCYTE ESTERASE,URINE NEGATIVE (NEGATIVE); NITRITE,URINE NEGATIVE (NEGATIVE); PROTEIN,URINE 30 mg/dL (NEGATIVE); URINE SPECIFIC GRAVITY 1.014; UROBILINOGEN,URINE NEGATIVE mg/dL (<2.0)
[2017-06-15 12:18] LABS: ALBUMIN 4.6 g/dL (3.5-5.0); ALKALINE PHOSPHATASE 80 U/L (38-126); ANION GAP 11 (5-19); BILIRUBIN,DIRECT 0.6 mg/dL (0.0-0.4); BILIRUBIN,TOTAL 0.8 mg/dL (0.2-1.3); BLOOD UREA NITROGEN 15 mg/dL (7-20); CARBON DIOXIDE 27 mmol/L (22-30); CHLORIDE 103 mmol/L (98-107); GLUCOSE 87 mg/dL (75-110); POTASSIUM 4.3 mmol/L (3.6-5.0); SODIUM 140.9 mmol/L (137-145); TOTAL PROTEIN 7.1 g/dL (6.3-8.2)
[2017-06-15 12:25] LABS: URINE AMPHETAMINES SCREEN NEGATIVE; URINE BARBITURATES SCREEN NEGATIVE; URINE BENZODIAZEPINES SCREEN NEGATIVE; URINE COCAINE SCREEN NEGATIVE; URINE MARIJUANA (THC) SCREEN NEGATIVE; URINE METHADONE SCREEN NEGATIVE; URINE PHENCYCLIDINE SCREEN NEGATIVE
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
[2017-06-15] MEDS ORDERED: GABAPENTIN 300 MG CAPSULE PO ONE (13:01)
[2017-06-15] MEDS ORDERED: OXYCODONE HCL IR 5 MG TABLET PO ONE (13:01)
[2017-06-15 13:02] LABS: ACETAMINOPHEN < 10 ug/mL (10-30); ALANINE AMINOTRANSFERASE 4489 U/L (21-72); ALCOHOL < 10 mg/dL (NONE DETECTED); SALICYLATE < 1.0 mg/dL (2.0-20.0)
[2017-06-15 13:48] LABS: ASPARTATE AMINO TRANSFERASE 4595 U/L (17-59)
--- NOTE | 2017-06-15 14:04 | EKG REPORT ---
SEVERITY:- NORMAL ECG - SINUS RHYTHM : Confirmed by: Rowdy Lopez MD 15-Jun-2017 14:02:55
--- NOTE | 2017-06-15 15:18 | RADIOLOGY REPORT (SQ) ---
EXAM DESCRIPTION: U/S ABDOMEN LIMITED W/O DOP COMPLETED DATE/TIME: 06/15/2017 3:07 pm REASON FOR STUDY: elevated LFTs COMPARISON: None. TECHNIQUE: Dynamic and static grayscale images acquired of the abdomen and recorded on PACS. Additio nal selected color Doppler and spectral images recorded. LIMITATIONS: None. FINDINGS: PANCREAS: Not seen. LIVER: 16.4 cm. Increased echogenicity. LIVER VASCULATURE: Normal directional flow of the main portal vein and hepatic veins. GALLBLADDER: Surgically absent. ULTRASOUND-DETECTED THOMAS'S SIGN: Not applicable. INTRAHEPATIC DUCTS AND COMMON DUCT: Ducts not well seen. INFERIOR VENA CAVA: Not seen. AORTA: No aneurysm. The distal aorta was not well seen. RIGHT KIDNEY: Normal size, 12.2 cm. Normal echogenicity. No solid or suspicious masses. No hydroneph rosis. No calcifications. PERITONEAL AND RIGHT PLEURAL SPACE: No ascites or effusions. OTHER: No other significant findings. IMPRESSION: Fatty infiltration of the liver. Study slightly limited as described. TECHNICAL DOCUMENTATION: JOB ID: [id number] [employer]- All Rights Reserved Reading location - IP/workstation name: [email or web address]
--- NOTE | 2017-06-15 18:27 | PSYCHOLOGICAL NOTE ---
Psych Note - Psych Note Psych Note: Reason for consult: Possible IVC, Medical Clearance for voluntary [facility] acceptance Contact Permission: Unknown; however [facility] [employer] worker Angela and mother at bedside. Patient is a 52 year old male who presented to the ED today via [facility] [employer] worker ( enhanced service provider, clinical home) per recommendation via [facility] who is patient's medication provider. [facility] [employer] worker identified [facility] has accepted patient, she is willing to transport patient voluntarily and the main reason they came to the ED was for labs and medical clearance. Patient is well known to this ED and the [facility] team. Visits going back to 2014-February 2017 have consistently documented SA (ETOH was common ) and SI when intoxicated. [facility] team Width Stripper called [facility], spoke to Henrietta and confirmed acceptance. Diagnosis: History of polysubstance use (alcohol, benzodiazepines, barbiturates were listed from previous ED visits) 296.80 (F31.9) Unspecified Bipolar and Related Disorder by history via previous ED visits Impression/Plan: Recommendation to move forward with voluntary acceptance at [facility] via patient's clinical home ([facility] [employer]) and [facility]'s inpatient referral efforts. [facility] team will fax labs to [facility] and provide clinical home ([facility] [employer]) with copy. Patient gave verbal consent to do so. Consulted with Dr. Wolfe regarding the management and care of patient.
[2017-06-16 09:39] LABS: HEPATITIS A AB IGM Negative (Negative); HEPATITIS B CORE AB IGM Negative (Negative); HEPATITS B SURFACE ANTIGEN Negative (Negative)
[2017-06-16 10:01] LABS: HEPATITIS C VIRUS ANTIBODY >11.0 s/co ratio (0.0-0.9)
== END 2017-06-15 15:50 ==
LOC: ER 10:46
DX: F32.9 Major depressive disorder, single episode, unspecified (principal); R45.851 Suicidal ideations; K76.0 Fatty (change of) liver, not elsewhere classified; G89.29 Other chronic pain; M54.5 Low back pain; Z79.891 Long term (current) use of opiate analgesic; Z79.899 Other long term (current) drug therapy; J44.9 Chronic obstructive pulmonary disease, unspecified; F17.200 Nicotine dependence, unspecified, uncomplicated; I10 Essential (primary) hypertension
CPT/HCPCS: 93005; 99285; 36415; 80307 ×4; 82140; 85025; 80053; 81001; 80074; 76705; 93010; J3490 ×3

== ENCOUNTER 2017-07-05 06:17 | Emergency (ER) | payer MEDICAID, OTHER ==
--- NOTE | 2017-07-05 06:55 | ER Document Report ---
ED General - General Information source: Patient TRAVEL OUTSIDE OF THE [place]. IN LAST 30 DAYS: No <TREVA STILL - Last Filed: 07/05/17 07:11> <BROOKLYN WALLER - Last Filed: 07/05/17 12:09> - General Chief Complaint: Abdominal Pain Stated Complaint: ABDOMINAL PAIN Time Seen by Provider: 07/05/17 06:42 Notes: 52 y.o male presents to the ED with lower abdominal pain more prominently to his LLQ for the past couple days. Pt reports a couple episodes of nausea and vomiting since onset. He states that his LLQ pain "feels like its going to my spine". He denies any known fever. Pt reports that he is not taking Oxycodone anymore but he has a hx of chronic narcotic use and states that he hasn't had Oxycodone for about three weeks. Pt also reports that he has not drank any alcohol in the past week. Pt's PCP is Dr. Borden. Pt has a PSHx of umbilical hernia surgery. He denies any PMHx of diverticulitis. (TREVA STILL) - Related Data Allergies/Adverse Reactions: No Known Allergies Allergy (Verified 06/15/17 11:06) Past Medical History - General Information source: Patient - Social History Smoking Status: Current Every Day Smoker Cigarette use (# per day): Yes - pack per day Chew tobacco use (# tins/day): No Smoking Education Provided: Yes Frequency of alcohol use: Heavy - none in the past week Drug Abuse: None Family History: Reviewed & Not Pertinent, CAD - Past Medical History Cardiac Medical History: Reports: Hx Hypercholesterolemia, Hx Hypertension Denies: Hx Coronary Artery Disease, Hx Heart Attack Pulmonary Medical History: Reports: Hx Bronchitis - hx of, Hx COPD - inhalers, Hx Sleep Apnea, Hx Tuberculosis - 2 years ago Denies: Hx Asthma, Hx Pneumonia Neurological Medical History: Denies: Hx Cerebrovascular Accident, Hx Seizures Renal/ Medical History: Reports: Hx Kidney Stones. Denies: Hx Peritoneal Dialysis GI Medical History: Reports: Hx Gastroesophageal Reflux Disease, Hx Hiatal Hernia, Hx Pancreatitis - ETOH. Denies: Hx Hepatitis, Hx Ulcer Musculoskeltal Medical History: Reports Hx Arthritis - mild Psychiatric Medical History: Reports: Hx Anxiety, Hx Bipolar Disorder, Hx Depression Infectious Medical History: Denies: Hx Hepatitis Past Surgical History: Reports: Hx Cholecystectomy, Hx Orthopedic Surgery - Injured left leg, Hx Pancreatic Surgery. Denies: Hx Appendectomy, Hx Bowel Surgery, Hx Coronary Artery Bypass Graft, Hx Gastric Bypass Surgery, Hx Herniorrhaphy, Hx Open Heart Surgery, Hx Pacemaker, Hx Tonsillectomy, Hx Urinary Tract Surgery, Hx Vascular Surgery - Immunizations Hx Diphtheria, Pertussis, Tetanus Vaccination: Yes <TREVA STILL - Last Filed: 07/05/17 07:11> Review of Systems - Review of Systems Constitutional: See HPI. denies: Fever EENT: No symptoms reported Cardiovascular: No symptoms reported Respiratory: No symptoms reported Gastrointestinal: See HPI, Abdominal pain, Nausea, Vomiting Genitourinary: No symptoms reported Male Genitourinary: No symptoms reported Musculoskeletal: No symptoms reported Skin: No symptoms reported Hematologic/Lymphatic: No symptoms reported Neurological/Psychological: No symptoms reported -: Yes All other systems reviewed and negative <TREVA STILL - Last Filed: 07/05/17 07:11> Physical Exam <TREVA STILL - Last Filed: 07/05/17 07:11> <BROOKLYN WALLER - Last Filed: 07/05/17 12:09> - Vital signs Vitals: Temp Pulse Resp BP Pulse Ox 97.9 F 106 H 16 142/91 H 94 07/05/17 06:21 07/05/17 06:21 07/05/17 06:21 07/05/17 06:21 07/05/17 06:21 - Notes Notes: Physical Exam: General: Alert, oriented, appears well. HEENT: Normocephalic. Atraumatic. PERRL. Extraocular movements intact. Oropharynx clear. Neck: Supple. Non-tender. Respiratory: No respiratory distress. Rhonchi with cough, no wheezing. Equal breath sounds bilaterally. Cardiovascular: Tachycardic rate and regular rhythm. Abdominal: Soft. Tender across bilateral lower abd. No distension. Normal Bowel Sounds. Back: Non-tender. No deformity or step off. Extremities: Moves all four extremities. Upper extremities: Normal inspection. Normal ROM. Lower extremities: Normal inspection. No edema. Normal ROM. Neurological: Normal cognition. AAOx3. Normal speech. (TREVA STILL) Course - Laboratory Result Diagrams: 07/05/17 07:45 07/05/17 07:45 - Diagnostic Test Radiology reviewed: Image reviewed, Reports reviewed - Double contrasted CT scan of the abdomen and pelvis does not show any explanation for his lower abdominal pain. - EKG Interpretation by Me EKG shows normal: Sinus rhythm, Everetts, Intervals, QRS Complexes, ST-T Waves Rate: Tachycardia - 109 <BROOKLYN WALLER - Last Filed: 07/05/17 12:09> - Vital Signs Vital signs: Temp Pulse Resp BP Pulse Ox 97.9 F 106 H 16 142/91 H 94 07/05/17 06:21 07/05/17 06:21 07/05/17 06:21 07/05/17 06:21 07/05/17 06:21 - Laboratory Laboratory results interpreted by me: 07/05/17 07/05/17 07:45 07:45 RDW 14.4 H Sodium 146.1 H Chloride 108 H Calcium 10.4 H Creatine Kinase 737 H Discharge <TREVA STILL - Last Filed: 07/05/17 07:11> <BROOKLYN WALLER - Last Filed: 07/05/17 12:09> - Discharge Clinical Impression: Abdominal pain Qualifiers: Abdominal location: lower abdomen, unspecified Qualified Code(s): R10.30 - Lower abdominal pain, unspecified Condition: Stable Disposition: HOME, SELF-CARE Additional Instructions: Abdominal Pain: There are many causes of abdominal pain. Pain can mean a serious problem requiring surgery (such as appendicitis). It can also be an innocent problem that goes away on its own (such as a viral infection). Often, time must pass to determine the cause of pain. The physician does not feel that hospitalization is necessary, at present. Things may change within the next 24 hours. Call the doctor or come back for re- examination if any problems occur, such as: (1) Pain that becomes more severe, steady, or becomes concentrated in one specific area. Also, pain that is more severe with movement or coughing. (2) Vomiting that persists or becomes more frequent. (3) Blood in the vomitus, urine, or bowel movements. Blood in the stool may have a tarry or black appearance. (4) Shaking chills or fever greater than 100 degrees F. (5) The abdomen becomes more distended or swollen. (6) Bowel movements cease. (7) Failure to improve as expected. CT scan of your abdomen and pelvis was normal, it did not show any explanation for your pain. Your muscle enzyme level was elevated and may mean that your pain is coming from the abdominal muscles. You should drink plenty of fluids today and rest. Follow-up with your doctor this week for recheck of your muscle enzyme levels. RETURN TO THE EMERGENCY ROOM IF ANY NEW OR WORSENING SYMPTOMS. Referrals: GEOFFREY BORDEN MD [Primary Care Provider] - Follow up as needed Scribe Attestation: 07/05/17 07:45 I personally performed the services described in the documentation, reviewed and edited the documentation which was dictated to the scribe in my presence, and it accurately records my words and actions. (BROOKLYN WALLER) Scribe Documentation - Scribe Written by Cory:: Cory Madrigal [id number] 07/05/17 acting as scribe for :: Jumana <TREVA STILL - Last Filed: 07/05/17 07:11>
[2017-07-05] MEDS ORDERED: NORMAL SALINE 1000 ML 1,000 ML IV ONE (06:57)
[2017-07-05] MEDS ORDERED: KETOROLAC TROMETHAMINE INJ/PF 30 MG/1 ML SDV IV ONE (08:10)
[2017-07-05] MEDS ORDERED: FAMOTIDINE INJ/PF 20 MG/2 ML SDV IV ONE (08:10)
[2017-07-05] MEDS ORDERED: ONDANSETRON HCL INJ/PF 4 MG/2 ML SDV IV ONE (08:10)
[2017-07-05 08:26] LABS: ALANINE AMINOTRANSFERASE 47 U/L (21-72); ALBUMIN 4.5 g/dL (3.5-5.0); ALKALINE PHOSPHATASE 65 U/L (38-126); ANION GAP 12 (5-19); ASPARTATE AMINO TRANSFERASE 43 U/L (17-59); BILIRUBIN,DIRECT 0.2 mg/dL (0.0-0.4); BILIRUBIN,TOTAL 0.2 mg/dL (0.2-1.3); BLOOD UREA NITROGEN 13 mg/dL (7-20); CALCIUM 10.4 mg/dL (8.4-10.2); CARBON DIOXIDE 26 mmol/L (22-30); CHLORIDE 108 mmol/L (98-107); CREATINE KINASE 737 U/L (55-170); GLUCOSE 90 mg/dL (75-110); LIPASE 261.3 U/L (23-300); POTASSIUM 4.2 mmol/L (3.6-5.0); SODIUM 146.1 mmol/L (137-145); TOTAL PROTEIN 7.7 g/dL (6.3-8.2)
[2017-07-05 08:28] LABS: ABSOLUTE EOSINOPHILS # (AUTO) 0.2 10^3/uL (0.0-0.6); ABSOLUTE LYMPHOCYTES (AUTO) 2.1 10^3/uL (0.5-4.7); ABSOLUTE NEUT (AUTO) 5.2 10^3/uL (1.7-8.2); BASOPHILS % (AUTO) 0.6 % (0-2); EOSINOPHILS % (AUTO) 2.6 % (0-6); HEMATOCRIT 40.7 % (37.9-51.0); HEMOGLOBIN 14.3 g/dL (13.5-17.0); LYMPHOCYTES % (AUTO) 24.8 % (13-45); MEAN CORPUSCULAR HEMOGLOBIN 31.9 pg (27.0-33.4); MEAN CORPUSCULAR HGB CONC 35.2 g/dL (32.0-36.0); MEAN CORPUSCULAR VOLUME 91 fl (80-97); MONOCYTES % (AUTO) 11.1 % (3-13); PLATELET COUNT 341 10^3/uL (150-450); RED CELL DISTRIBUTION WIDTH 14.4 % (11.5-14.0); SEGMENTED NEUTROPHILS % (AUTO) 60.9 % (42-78); TOTAL CELLS COUNTED % (AUTO) 100 %; WHITE BLOOD COUNT 8.6 10^3/uL (4.0-10.5)
--- NOTE | 2017-07-05 10:20 | RADIOLOGY REPORT (SQ) ---
EXAM DESCRIPTION: CT ABD/PELVIS WITH IV ORAL COMPLETED DATE/TIME: 07/05/2017 10:03 am REASON FOR STUDY: Left lower quadrant abdominal pain COMPARISON: CT abdomen pelvis 03/09/2016, 09/16/2013 TECHNIQUE: CT scan of the abdomen and pelvis performed using helical scanning technique with dynamic intravenous contrast injection. Patient drank oral contrast. Images reviewed with lung, soft tissue , and bone windows. Reconstructed coronal and sagittal MPR images reviewed. Delayed images for evalua tion of the urinary system also acquired. All images stored on PACS. All CT scanners at this facility use dose modulation, iterative reconstruction, and/or weight based d osing when appropriate to reduce radiation dose to as low as reasonably achievable (ALARA). [facility]: Dose Right [facility]: CareDose [facility]: Dose Right [facility]: Teradose 4D [facility]: Lift CONTRAST TYPE AND DOSE: contrast/concentration: Isovue 370.00 mg/ml; Total Contrast Delivered: 86.0 ml; Total Saline Delivered: 69.0 ml RENAL FUNCTION: Creatinine 0.74 RADIATION DOSE: CT Rad equipment meets quality standard of care and radiation dose reduction techniq ues were employed. CTDIvol: NaN - NaN mGy. DLP: 0 mGy-cm.. LIMITATIONS: None. FINDINGS: LOWER CHEST: No significant findings. No nodules or infiltrates. LIVER: Normal size. No masses. No dilated ducts. SPLEEN: Normal size. No focal lesions. PANCREAS: No masses. No significant calcifications. No adjacent inflammation or peripancreatic fluid collections. Pancreatic duct not dilated. GALLBLADDER: Surgically absent ADRENAL GLANDS: No significant masses or asymmetry. RIGHT KIDNEY AND URETER: No solid masses. 13 mm right lower pole renal cortical cyst. 3 mm right mi dpole intrarenal nonobstructive stone. No hydronephrosis or hydroureter. LEFT KIDNEY AND URETER: No solid masses. 1.7 cm left midpole renal cortical cyst. 2 mm left midpole intrarenal nonobstructive stone. No hydronephrosis or hydroureter. AORTA AND VESSELS: No aneurysm. No dissection. Renal arteries, SMA, celiac without stenosis. RETROPERITONEUM: No retroperitoneal adenopathy, hemorrhage or masses. BOWEL AND PERITONEAL CAVITY: Patient drank oral contrast. No bowel obstruction. No masses or inflam matory changes. No free fluid or peritoneal masses. APPENDIX: Normal. PELVIS: No mass. No free fluid. Normal bladder. ABDOMINAL WALL: No masses. No hernias. BONES: No significant or acute findings. OTHER: No other significant finding. IMPRESSION: No CT findings to explain history of left lower quadrant pain. TECHNICAL DOCUMENTATION: JOB ID: [id number] Quality ID # [id number]: Final reports with documentation of one or more dose reduction techniques (e.g., Au tomated exposure control, adjustment of the mA and/or kV according to patient size, use of iterative reconstruction technique) 2010 [employer]- All Rights Reserved Reading location - IP/workstation name: [facility]
[2017-07-05] MEDS ORDERED: DEXTROSE 5%-LACTATED RINGERS 1,000 ML IV ONE (10:28)
[2017-07-05 11:37] LABS: APPEARANCE,URINE CLEAR; BILIRUBIN,URINE NEGATIVE (NEGATIVE); COLOR,URINE STRAW; GLUCOSE, URINE NEGATIVE (NEGATIVE); KETONES,URINE NEGATIVE (NEGATIVE); LEUKOCYTE ESTERASE,URINE NEGATIVE (NEGATIVE); NITRITE,URINE NEGATIVE (NEGATIVE); PROTEIN,URINE NEGATIVE (NEGATIVE); UROBILINOGEN,URINE NEGATIVE mg/dL (<2.0)
[2017-07-05 12:17] VITALS: BP 145/91
== END 2017-07-05 12:17 | disposition home or self-care (01) ==
LOC: ER 06:17
DX: R10.32 Left lower quadrant pain (principal); R11.2 Nausea with vomiting, unspecified; R00.0 Tachycardia, unspecified; F17.210 Nicotine dependence, cigarettes, uncomplicated; I10 Essential (primary) hypertension; J44.9 Chronic obstructive pulmonary disease, unspecified; Z87.442 Personal history of urinary calculi; Z87.19 Personal history of other diseases of the digestive system; Z90.49 Acquired absence of other specified parts of digestive tract
CPT/HCPCS: 99284; 96361; 96374; 96375; 36415; 82550; 83690; 85025; 80053; 81001; 74177; J1885; J2405; J7030; S0028

== ENCOUNTER 2017-10-08 08:03 | Emergency (ER) | payer MEDICAID ==
--- NOTE | 2017-10-08 08:26 | RADIOLOGY REPORT (SQ) ---
EXAM DESCRIPTION: CHEST SINGLE VIEW COMPLETED DATE/TIME: 10/08/2017 8:17 am REASON FOR STUDY: cp COMPARISON: 08/14/2016. NUMBER OF VIEWS: One view. TECHNIQUE: Single frontal radiographic view of the chest acquired. LIMITATIONS: None. FINDINGS: LUNGS AND PLEURA: No opacities, masses or pneumothorax. No pleural effusion. MEDIASTINUM AND HILAR STRUCTURES: No masses. Contour normal. HEART AND VASCULAR STRUCTURES: Heart normal in size. Normal vasculature. BONES: No acute findings. HARDWARE: None in the chest. OTHER: No other significant finding. IMPRESSION: NO SIGNIFICANT RADIOGRAPHIC FINDING IN THE CHEST. TECHNICAL DOCUMENTATION: JOB ID: [id number] [employer]- All Rights Reserved Reading location - IP/workstation name: [email or web address]
--- NOTE | 2017-10-08 08:27 | ER Document Report ---
ED Cardiac <MARTÍN GOLDSTEIN - Last Filed: 10/08/17 16:30> - General TRAVEL OUTSIDE OF THE [place] IN LAST 30 DAYS: No - HPI Patient complains to provider of: Chest pain, Other - Suicidal ideation, depression Use of: Alcohol, Cocaine Chest pain location: Substernal Quality of pain: None Severity now: Mild Severity at worst: Mild Pain level currently: 0 <BEL HURST - Last Filed: 10/08/17 16:45> - General Stated Complaint: CHEST PAIN Time Seen by Provider: 10/08/17 08:13 Notes: 52-year-old male to emergency department chief complaint of "I want to ". Patient states that he has been drinking and smoking crack all night. Had some chest pain after smoking crack but now chest pain has resolved and just wants to . States that he has been seen here multiple times in he always gets discharged. He does not have a plan. Denies any ingestion other than cocaine and alcohol. (BEL HURST) - Related Data Allergies/Adverse Reactions: No Known Allergies Allergy (Verified 06/15/17 11:06) Past Medical History - General Information source: Patient - Social History Smoking Status: Current Every Day Smoker Frequency of alcohol use: Heavy Drug Abuse: Cocaine Lives with: Alone Family History: Reviewed & Not Pertinent, CAD - Past Medical History Cardiac Medical History: Reports: Hx Hypercholesterolemia, Hx Hypertension Denies: Hx Coronary Artery Disease, Hx Heart Attack Pulmonary Medical History: Reports: Hx Bronchitis - hx of, Hx COPD - inhalers, Hx Sleep Apnea, Hx Tuberculosis - 2 years ago Denies: Hx Asthma, Hx Pneumonia Neurological Medical History: Denies: Hx Cerebrovascular Accident, Hx Seizures Renal/ Medical History: Reports: Hx Kidney Stones. Denies: Hx Peritoneal Dialysis GI Medical History: Reports: Hx Gastroesophageal Reflux Disease, Hx Hiatal Hernia, Hx Pancreatitis - ETOH. Denies: Hx Hepatitis, Hx Ulcer Musculoskeletal Medical History: Reports Hx Arthritis - mild Psychiatric Medical History: Reports: Hx Anxiety, Hx Bipolar Disorder, Hx Depression Infectious Medical History: Denies: Hx Hepatitis Past Surgical History: Reports: Hx Cholecystectomy, Hx Orthopedic Surgery - Injured left leg, Hx Pancreatic Surgery. Denies: Hx Appendectomy, Hx Bowel Surgery, Hx Coronary Artery Bypass Graft, Hx Gastric Bypass Surgery, Hx Herniorrhaphy, Hx Open Heart Surgery, Hx Pacemaker, Hx Tonsillectomy, Hx Urinary Tract Surgery, Hx Vascular Surgery - Immunizations Hx Diphtheria, Pertussis, Tetanus Vaccination: Yes <BEL HURST - Last Filed: 10/08/17 16:45> Review of Systems - Review of Systems Constitutional: denies: Fever, Malaise, Weakness EENT: denies: Double vision, Throat pain, Mouth pain Cardiovascular: Chest pain. denies: Palpitations, Heart racing Respiratory: denies: Cough, Hurts to breathe, Short of breath, Wheezing Gastrointestinal: denies: Abdominal pain, Diarrhea, Nausea, Vomiting Genitourinary: denies: Burning, Dysuria, Flank pain Musculoskeletal: denies: Back pain, Joint pain, Joint swelling, Muscle pain, Muscle stiffness, Leg swelling Skin: denies: Change in color, Dryness, Lesions, Lumps, Rash Hematologic/Lymphatic: denies: Anemia, Blood clots, Easy bleeding, Easy bruising Neurological/Psychological: Other - Does complain of suicidal ideation, substance abuse, alcohol abuse. denies: Confusion, Weakness, Numbness <BEL HURST - Last Filed: 10/08/17 16:45> Physical Exam - Vital signs Interpretation: Normal - General General appearance: Appears well, Alert - HEENT Head: Normocephalic, Atraumatic Eyes: Normal Pupils: PERRL - Respiratory Respiratory status: No respiratory distress Chest status: Nontender Breath sounds: Normal Chest palpation: Normal - Cardiovascular Rhythm: Regular Heart sounds: Normal auscultation Murmur: No - Abdominal Inspection: Normal Distension: No distension Bowel sounds: Normal Tenderness: Nontender Organomegaly: No organomegaly - Back Back: Normal, Nontender - Extremities General upper extremity: Normal inspection, Nontender, Normal color, Normal ROM , Normal temperature General lower extremity: Normal inspection, Nontender, Normal color, Normal ROM , Normal temperature, Normal weight bearing. No: Daria's sign - Neurological Neuro grossly intact: Yes Cognition: Normal Orientation: AAOx4 [place] Coma Scale Eye Opening: Spontaneous [place] Coma Scale Verbal: Oriented [place] Coma Scale Motor: Obeys Commands [place] Coma Scale Total: 15 Speech: Normal Motor strength normal: LUE, RUE, LLE, RLE Sensory: Normal - Psychological Associated symptoms: Depressed, Flat affect - Skin Skin Temperature: Warm Skin Moisture: Dry Skin Color: Normal <BEL HURST Last Filed: 10/08/17 16:45> - Vital signs Vitals: Pulse Ox 98 10/08/17 08:05 Course - Laboratory Result Diagrams: 10/08/17 08:20 10/08/17 08:20 <MARTÍN GOLDSTEIN - Last Filed: 10/08/17 16:30> - Laboratory Result Diagrams: 10/08/17 08:20 10/08/17 08:20 - EKG Interpretation by [place] EKG shows normal: Sinus rhythm, [place], Intervals, QRS Complexes, ST-T Waves <BEL HURST - Last Filed: 10/08/17 16:45> - Re-evaluation Re-evalutation: 10/08/17 10:29 Laboratory 10/08/17 10/08/17 10/08/17 08:20 08:20 08:20 WBC 10.3 RBC 4.51 Hgb 14.0 Hct 40.9 MCV 91 MCH 31.1 MCHC 34.2 RDW 15.2 H Plt Count 257 Seg Neutrophils % 68.8 Lymphocytes % 19.5 Monocytes % 10.3 Eosinophils % 0.4 Basophils % 1.0 Absolute Neutrophils 7.1 Absolute Lymphocytes 2.0 Absolute Monocytes 1.1 Absolute Eosinophils 0.0 Absolute Basophils 0.1 Sodium 146.1 H Potassium 4.1 Chloride 103 Carbon Dioxide 27 Anion Gap 16 BUN 11 Creatinine 0.76 Est GFR ( Amer) > 60 Est GFR (Non-Af Amer) > 60 Glucose 101 Calcium 9.7 Total Bilirubin 0.8 Direct Bilirubin 0.3 Neonat Total Bilirubin Not Reportable Neonat Direct Bilirubin Not Reportable Neonat Indirect Bili Not Reportable AST 45 ALT 74 H Alkaline Phosphatase 62 Creatine Kinase 484 H CK-MB (CK-2) 1.93 Troponin I < 0.012 Total Protein 7.6 Albumin 4.6 Salicylates Acetaminophen Serum Alcohol 82 10/08/17 08:20 WBC RBC Hgb Hct MCV MCH MCHC RDW Plt Count Seg Neutrophils % Lymphocytes % Monocytes % Eosinophils % Basophils % Absolute Neutrophils Absolute Lymphocytes Absolute Monocytes Absolute Eosinophils Absolute Basophils Sodium Potassium Chloride Carbon Dioxide Anion Gap BUN Creatinine Est GFR ( Amer) Est GFR (Non-Af Amer) Glucose Calcium Total Bilirubin Direct Bilirubin Neonat Total Bilirubin Neonat Direct Bilirubin Neonat Indirect Bili AST ALT Alkaline Phosphatase Creatine Kinase CK-MB (CK-2) Troponin I Total Protein Albumin Salicylates 1.7 L Acetaminophen < 10 L Serum Alcohol Chest X-Ray 10/08/17 08:05 IMPRESSION: NO SIGNIFICANT RADIOGRAPHIC FINDING IN THE CHEST. 10/08/17 10:30 Will repeat cardiac troponin but unlikely this represents a cardiac event. Slight alcohol elevation. Patient likely stable for mental health evaluation at this time. 10/08/17 16:12 Repeat troponin is negative. Unlikely this represents a cardiac event. Patient has been observed now for several hours. Waiting on final recommendations by mental health but anticipate patient will be able to be discharged shortly. (BEL HURST) - Vital Signs Vital signs: Temp Pulse Resp BP Pulse Ox 98.1 F 16 124/78 95 10/08/17 08:28 10/08/17 14:00 10/08/17 10:00 10/08/17 14:00 - Laboratory Laboratory results interpreted by me: 10/08/17 10/08/17 10/08/17 08:20 08:20 08:20 RDW 15.2 H Sodium 146.1 H ALT 74 H Creatine Kinase 484 H Urine Urobilinogen Salicylates 1.7 L Acetaminophen < 10 L 10/08/17 13:30 RDW Sodium ALT Creatine Kinase Urine Urobilinogen 2.0 H Salicylates Acetaminophen Discharge <MARTÍN GOLDSTEIN - Last Filed: 10/08/17 16:30> <BEL HURST - Last Filed: 10/08/17 16:45> - Discharge Clinical Impression: Cocaine abuse, Alcohol abuse, Suicidal ideation Chest pain Qualifiers: Chest pain type: unspecified Qualified Code(s): R07.9 - Chest pain, unspecified Condition: Stable Disposition: HOME, SELF-CARE Instructions: Chest Pain of Unclear Cause ([facility]) Additional Instructions: CHRONIC ALCOHOLISM and ALCOHOL ABUSE: Your evaluation reveals evidence of chronic alcoholism, an addiction to alcohol. The tendency to alcoholism may be inherited. Chronic use of alcohol weakens muscles, causes fatty deposits in the liver , damages the stomach, makes you more prone to infections, and can cause defects in unborn children. In the long run, brain atrophy and cirrhosis of the liver result. You are also at greater risk for certain types of cancer, such as cancer of the mouth, throat, stomach, and liver. Counselling services are available to help you. In-hospital treatment programs often help. Support groups such as Alcoholics Anonymous can be very useful in beating this addiction. Your physician can make a referral for you. As alcoholics often are prone to other addictions, you should discuss your use of any other medications with the doctor. COCAINE ABUSE: Cocaine causes many dangerous medical problems. Problems can occur even with "usual" amounts. Cocaine affects judgement, creating a sense of invulnerability. Cocaine users often make bad decisions that seem "great" at the time. Most cocaine users eventually will be hurt by bad job performance, damaged personal relations, crime, and unsafe sexual practices. Toxic effects of cocaine can include seizures, hallucinations, delusions, high blood pressure, heart damage, or sudden . There's always the risk of a "bad batch." But heart attacks, brain hemorrhages, or cardiac arrest can occur unpredictably even with "normal" use. Injection of cocaine is risky for abscesses, endocarditis (heart infection) , pneumonia, and AIDS. Withdrawal from cocaine often causes anxiety and drug cravings. Some users become paranoid and psychotic. Many treatment programs are available, but you must make the decision to quit. Medication can be prescribed to control the symptoms of cocaine toxicity (beta blockers or benzodiazepines). Withdrawal symptoms may require tranquilizers. DEPRESSION: Your evaluation reveals that you have mental depression. While symptoms may be vague, they often include disturbance of sleep, fatigue, loss of appetite , and general loss of interest in life. While depression may be a side effect of drugs, or a reaction to a major change in your life, many cases have no known cause. If depression is acute, and related to a major loss in your life, you can expect it to clear completely with time. If you have been depressed a long time , are prone to repeated bouts of depression or low mood, or have been thinking of suicide, get help. Depression can be treated with anti-depressant medication and counselling. Long-term depression will often take a few weeks to clear, even with appropriate medication. Follow-up care is important. SUICIDAL IDEATION: Suicidal ideation is a common medical term for thoughts about suicide, which may be as detailed as a formulated plan, without the suicidal act itself. Although most people who undergo suicidal ideation do not commit suicide, some go on to make suicide attempts. The range of suicidal ideation varies greatly from fleeting to detailed planning, role playing, and unsuccessful attempts. While thoughts about suicide are common, most people do not carry out serious actions to commit suicide. Based upon your evaluation and discussion with you, we do not believe you are currently at risk to act upon your thoughts of suicide. You have agreed to return to the Emergency Department, at any time , if you feel inclined to act upon your suicidal thoughts. FOLLOW-UP CARE: You have been instructed to contact [facility] for voluntary Substance Abuse detoxification/rehabilitation. The [facility] Behavioral Health team contacted [facility] mobile crisis call center and provided demographic information so they are expecting a phone call from you at discharge. you have been provided with the outpatient mental health resource sheet which highlighted the mobile crisis number and you have been made aware you can use the wall phone in the lobby to make the phone call. You should continue medication management with current provider at [facility]. If you experience worsening or a significant change in your symptoms, notify the physician immediately, utilize mobile crisis or return to the Emergency Department at any time for re-evaluation. Referrals: [facility] [Outside] - 10/08/17 5:00 pm [facility] [Outside] - Follow up as needed
[2017-10-08 08:35] LABS: ABSOLUTE BASOPHILS # (AUTO) 0.1 10^3/uL (0.0-0.2); ABSOLUTE MONOCYTES (AUTO) 1.1 10^3/uL (0.1-1.4); ABSOLUTE NEUT (AUTO) 7.1 10^3/uL (1.7-8.2); EOSINOPHILS % (AUTO) 0.4 % (0-6); HEMATOCRIT 40.9 % (37.9-51.0); LYMPHOCYTES % (AUTO) 19.5 % (13-45); MEAN CORPUSCULAR HEMOGLOBIN 31.1 pg (27.0-33.4); MEAN CORPUSCULAR HGB CONC 34.2 g/dL (32.0-36.0); MEAN CORPUSCULAR VOLUME 91 fl (80-97); MONOCYTES % (AUTO) 10.3 % (3-13); PLATELET COUNT 257 10^3/uL (150-450); RED BLOOD COUNT 4.51 10^6/uL (4.35-5.55); RED CELL DISTRIBUTION WIDTH 15.2 % (11.5-14.0); SEGMENTED NEUTROPHILS % (AUTO) 68.8 % (42-78); TOTAL CELLS COUNTED % (AUTO) 100 %; WHITE BLOOD COUNT 10.3 10^3/uL (4.0-10.5)
[2017-10-08 08:54] LABS: ALANINE AMINOTRANSFERASE 74 U/L (21-72); ALBUMIN 4.6 g/dL (3.5-5.0); ALCOHOL 82 mg/dL (NONE DETECTED); ALKALINE PHOSPHATASE 62 U/L (38-126); ANION GAP 16 (5-19); ASPARTATE AMINO TRANSFERASE 45 U/L (17-59); BILIRUBIN,DIRECT 0.3 mg/dL (0.0-0.4); BILIRUBIN,TOTAL 0.8 mg/dL (0.2-1.3); BLOOD UREA NITROGEN 11 mg/dL (7-20); CALCIUM 9.7 mg/dL (8.4-10.2); CARBON DIOXIDE 27 mmol/L (22-30); CHLORIDE 103 mmol/L (98-107); CREATINE KINASE 484 U/L (55-170); GLUCOSE 101 mg/dL (75-110); POTASSIUM 4.1 mmol/L (3.6-5.0); SODIUM 146.1 mmol/L (137-145); TOTAL PROTEIN 7.6 g/dL (6.3-8.2)
[2017-10-08 09:05] LABS: CREATINE KINASE MB 1.93 ng/mL (<4.55)
[2017-10-08 09:07] LABS: TROPONIN I < 0.012 ng/mL
[2017-10-08 09:19] LABS: SALICYLATE 1.7 mg/dL (2.0-20.0)
[2017-10-08 09:20] LABS: ACETAMINOPHEN < 10 ug/mL (10-30)
[2017-10-08] MEDS ORDERED: RINGERS SOLUTION,LACTATED 1,000 ML IV ONE (09:53)
--- NOTE | 2017-10-08 13:06 | EKG REPORT ---
SEVERITY:- OTHERWISE NORMAL ECG - SINUS RHYTHM RIGHT AXIS DEVIATION : Confirmed by: Rowdy Lopez MD 08-Oct-2017 13:05:55
[2017-10-08 15:12] LABS: APPEARANCE,URINE CLEAR; BILIRUBIN,URINE NEGATIVE (NEGATIVE); COLOR,URINE YELLOW; GLUCOSE, URINE NEGATIVE (NEGATIVE); KETONES,URINE NEGATIVE (NEGATIVE); LEUKOCYTE ESTERASE,URINE NEGATIVE (NEGATIVE); NITRITE,URINE NEGATIVE (NEGATIVE); PROTEIN,URINE NEGATIVE (NEGATIVE); URINE SPECIFIC GRAVITY 1.017
[2017-10-08 15:31] LABS: URINE AMPHETAMINES SCREEN NEGATIVE; URINE BARBITURATES SCREEN NEGATIVE; URINE BENZODIAZEPINES SCREEN NEGATIVE; URINE COCAINE SCREEN UNCONFIRMED POSITIVE; URINE MARIJUANA (THC) SCREEN NEGATIVE; URINE METHADONE SCREEN NEGATIVE; URINE PHENCYCLIDINE SCREEN NEGATIVE
[2017-10-08 17:10] VITALS: BP 128/74
--- NOTE | 2017-10-08 17:53 | PSYCHOLOGICAL NOTE ---
Psych Note - Psych Note Psych Note: Reason for Consult: Passive SI, SA (ETOH, Crack Cocaine) Contact Permissions: None at this time Patient is a 52 year old male who presented to the ED today via ambulance for chief complaint of chest pain. Once in the ED documentation states patient said the pain resolved but he just wants to . Note patient is well known to this ED and the [facility] Behavioral Health team for similar etiology (ETOH and other substances, SI). He acknowledged he had been drinking (Serum Alcohol Level upon arrival to the ED was 82) and smoking crack all night. Patient stated "I always do" when asked if he had any thoughts of wanting to hurt/harm/kill self. When confronted about his previous ED visit on 06/15/17 when [facility] worker Angela (per this clinician being same as that visit, also documented in that psych note) brought patient for medical clearance in order to obtain inpatient at [facility]. He stated "[facility] wouldn't give me my pain medications so I didn't go in." He identified he is still linked with [facility] and commented "a wally still calls every now and then." He reported his outpatient provider is [facility], was prescribed Trazodone 300MG QHS, was supposed to get something else that works faster, it was not Seroquel. He noted "I have anxiety and everything." He reported he was just at [facility] last month and goes monthly for follow ups. He admitted [facility] doesn' t know about his alcohol and crack use. he stated he only does medication management at [facility]. He said "I do want to stop" and agreed to linkage to [facility]. He noted previous detox/rehab at the [facility] in [place] several years ago. he was made aware that going to detox he may not be able to have his pain medication. Patient was alert and oriented to person, place, time and situation. Mood was depressed with flat affect (note may also be from sobering up). He stated he "Always" has SI which indicates chronic/ongoing issue versus crisis. He did not have a plan but passive general thoughts of not wanting to be alive. He denied HI. He did not appear to be responding to internal stimuli as evidenced by fair eye contact, staying on topic and answering questions appropriately when addressed. Thought processes were linear and organized. Conversational speech was within normal limits for rate, tone and prosody. Intellectual abilities are estimated to be average. Insight, judgment and impulse control were fair as evidenced by acknowledging he has a problem and that he wants to stop. Diagnosis: Polysubstance 303.00 (F10.229) Alcohol Intoxication, With Use Disorder Severe 304.20 (F14.20) Cocaine Use Disorder, Severe History of polysubstance use (alcohol, benzodiazepines, barbiturates were listed from previous ED visits) 296.80 (F31.9) Unspecified Bipolar and Related Disorder by history via previous ED visits Impression/Plan: Patient is cleared from acute psychiatric services. He endorsed passive SI with no plan currently and stated he always has SI (thus suggesting this is a chronic issue versus crisis especially at this time given he has no plan). His main concern was that he will continue using Crack and Alcohol "which will kill him eventually." He stated he wants to stop using both but was concerned about not getting his pain medications if he goes inpatient. He denied HI and there was no observed psychosis. He was provided with the outpatient resource sheet with [facility] highlighted for voluntary SA detox/rehab , as well as current medication provider [facility] for follow up as soon as possible. He was made aware the [facility] Behavioral Health team called [facility] and provided demographic information so they are expecting a call from him once discharged. He was informed there is a phone on the wall near the lobby doors that exit out. He was encourage to use that phone to call [facility] so that they can arrange when and where to meet. Consulted with Dr. Wolfe regarding the management and care of patient. ED Physician in agreement with recommendations.
== END 2017-10-08 17:09 | disposition home or self-care (01) ==
LOC: ER 08:03
DX: R45.851 Suicidal ideations (principal); F14.10 Cocaine abuse, uncomplicated; F10.10 Alcohol abuse, uncomplicated; R07.9 Chest pain, unspecified; F17.200 Nicotine dependence, unspecified, uncomplicated; I10 Essential (primary) hypertension
CPT/HCPCS: 93005; 99285; 96360; 36415; 82553; 80307 ×4; 82550; 85025; 80053; 81001; 84484; 71045; 93010; J7120

== ENCOUNTER 2017-11-22 15:28 | Emergency (ER) | payer MEDICAID ==
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
[2017-11-22 16:20] LABS: ABSOLUTE BASOPHILS # (AUTO) 0.1 10^3/uL (0.0-0.2); ABSOLUTE EOSINOPHILS # (AUTO) 0.1 10^3/uL (0.0-0.6); ABSOLUTE LYMPHOCYTES (AUTO) 2.4 10^3/uL (0.5-4.7); ABSOLUTE MONOCYTES (AUTO) 0.5 10^3/uL (0.1-1.4); ABSOLUTE NEUT (AUTO) 4.5 10^3/uL (1.7-8.2); BASOPHILS % (AUTO) 0.8 % (0-2); EOSINOPHILS % (AUTO) 1.4 % (0-6); HEMATOCRIT 45.8 % (37.9-51.0); HEMOGLOBIN 16.1 g/dL (13.5-17.0); LYMPHOCYTES % (AUTO) 31.8 % (13-45); MEAN CORPUSCULAR HGB CONC 35.2 g/dL (32.0-36.0); MEAN CORPUSCULAR VOLUME 91 fl (80-97); MONOCYTES % (AUTO) 6.7 % (3-13); PLATELET COUNT 326 10^3/uL (150-450); RED BLOOD COUNT 5.05 10^6/uL (4.35-5.55); RED CELL DISTRIBUTION WIDTH 14.5 % (11.5-14.0); SEGMENTED NEUTROPHILS % (AUTO) 59.3 % (42-78); TOTAL CELLS COUNTED % (AUTO) 100 %; WHITE BLOOD COUNT 7.6 10^3/uL (4.0-10.5)
--- NOTE | 2017-11-22 16:39 | RADIOLOGY REPORT (SQ) ---
EXAM DESCRIPTION: ACUTE ABDOMEN SERIES COMPLETED DATE/TIME: 11/22/2017 4:25 pm REASON FOR STUDY: abdominal pain COMPARISON: None. NUMBER OF VIEWS: Three views. TECHNIQUE: Frontal chest, supine abdomen and upright/decubitus abdomen radiographic images acquired. LIMITATIONS: None. FINDINGS: CHEST: Lungs clear of infiltrates. FREE AIR: None. No abnormal gas collections. BOWEL GAS PATTERN: Nonobstructive pattern. No dilated loops or air fluid levels. CALCIFICATIONS: No suspicious calcifications. HARDWARE: Surgical clips are identified in the right upper quadrant. SOFT TISSUES: No gross mass or suggestion of organomegaly. BONES: No acute fracture. No worrisome bone lesions. OTHER: No other significant finding. IMPRESSION: NO RADIOGRAPHIC EVIDENCE FOR ACUTE ABDOMINAL DISEASE. TECHNICAL DOCUMENTATION: JOB ID: [id number] [employer]- All Rights Reserved Reading location - IP/workstation name: [email or web address]
--- NOTE | 2017-11-22 16:40 | RADIOLOGY REPORT (SQ) ---
EXAM DESCRIPTION: FOOT LEFT COMPLETE COMPLETED DATE/TIME: 11/22/2017 4:25 pm REASON FOR STUDY: trauma , left foot pain COMPARISON: None. NUMBER OF VIEWS: Three views. TECHNIQUE: AP, lateral and oblique radiographic images acquired of the left foot. LIMITATIONS: None. FINDINGS: MINERALIZATION: Normal. BONES: There is a fracture through the distal phalanx of the great toe. The fracture extends through the articular surface of the interphalangeal joint. JOINTS: No effusions. SOFT TISSUES: No soft tissue swelling. No foreign body. OTHER: No other significant finding. IMPRESSION: Fracture of the distal phalanx of the great toe. The fracture extends through the artic ular surface. TECHNICAL DOCUMENTATION: JOB ID: [id number] [employer]- All Rights Reserved Reading location - IP/workstation name: [email or web address]
[2017-11-22 16:44] LABS: ALANINE AMINOTRANSFERASE 140 U/L (21-72); ALKALINE PHOSPHATASE 93 U/L (38-126); ANION GAP 12 (5-19); ASPARTATE AMINO TRANSFERASE 91 U/L (17-59); BILIRUBIN,DIRECT 0.5 mg/dL (0.0-0.4); BLOOD UREA NITROGEN 10 mg/dL (7-20); CALCIUM 10.3 mg/dL (8.4-10.2); CARBON DIOXIDE 26 mmol/L (22-30); CHLORIDE 102 mmol/L (98-107); GLUCOSE 96 mg/dL (75-110); LIPASE 165.6 U/L (23-300); SODIUM 140.4 mmol/L (137-145); TOTAL PROTEIN 8.4 g/dL (6.3-8.2)
[2017-11-22] MEDS ORDERED: CEPHALEXIN 500 MG CAPSULE PO ONE (17:18)
[2017-11-22 17:24] VITALS: BP 133/78
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
== END 2017-11-22 17:34 | disposition home or self-care (01) ==
LOC: ER 15:28
DX: S92.425A Nondisplaced fracture of distal phalanx of left great toe, initial encounter for closed fracture (principal); S91.212A Laceration without foreign body of left great toe with damage to nail, initial encounter; L08.9 Local infection of the skin and subcutaneous tissue, unspecified; W20.8XXA Other cause of strike by thrown, projected or falling object, initial encounter; F17.200 Nicotine dependence, unspecified, uncomplicated; I10 Essential (primary) hypertension; J44.9 Chronic obstructive pulmonary disease, unspecified; Z91.041 Radiographic dye allergy status
CPT/HCPCS: 36415; 74022; 80053; 83690; 85025; 99283

== ENCOUNTER 2017-12-10 04:02 | Emergency (ER) | payer MEDICAID ==
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
[2017-12-10] MEDS ORDERED: NORMAL SALINE 1000 ML 1,000 ML IV ONE (04:25)
[2017-12-10] MEDS ORDERED: ONDANSETRON HCL INJ/PF 4 MG/2 ML SDV IV ONE (04:25)
[2017-12-10] MEDS ORDERED: METOCLOPRAMIDE HCL ORAL SOLN 10 MG/10 ML UDCUP PO ONE (04:25)
[2017-12-10] MEDS ORDERED: LIDOCAINE 2% VISCOUS SOLN 20 ML UDCUP PO ONE (04:25)
[2017-12-10] MEDS ORDERED: MAG HYDROX/AL HYDROX/SIMETH SUSP 30 ML UDCUP PO ONE (04:25)
[2017-12-10 04:43] LABS: ABSOLUTE BASOPHILS # (AUTO) 0.1 10^3/uL (0.0-0.2); ABSOLUTE EOSINOPHILS # (AUTO) 0.2 10^3/uL (0.0-0.6); ABSOLUTE LYMPHOCYTES (AUTO) 2.8 10^3/uL (0.5-4.7); ABSOLUTE MONOCYTES (AUTO) 0.8 10^3/uL (0.1-1.4); ABSOLUTE NEUT (AUTO) 5.2 10^3/uL (1.7-8.2); BASOPHILS % (AUTO) 0.6 % (0-2); EOSINOPHILS % (AUTO) 1.7 % (0-6); HEMATOCRIT 41.5 % (37.9-51.0); HEMOGLOBIN 15.2 g/dL (13.5-17.0); LYMPHOCYTES % (AUTO) 31.3 % (13-45); MEAN CORPUSCULAR HEMOGLOBIN 33.3 pg (27.0-33.4); MEAN CORPUSCULAR HGB CONC 36.6 g/dL (32.0-36.0); MEAN CORPUSCULAR VOLUME 91 fl (80-97); MONOCYTES % (AUTO) 8.5 % (3-13); PLATELET COUNT 271 10^3/uL (150-450); RED BLOOD COUNT 4.56 10^6/uL (4.35-5.55); RED CELL DISTRIBUTION WIDTH 14.4 % (11.5-14.0); SEGMENTED NEUTROPHILS % (AUTO) 57.9 % (42-78); TOTAL CELLS COUNTED % (AUTO) 100 %
[2017-12-10 04:57] LABS: ALANINE AMINOTRANSFERASE 75 U/L (21-72); ALBUMIN 4.8 g/dL (3.5-5.0); ALKALINE PHOSPHATASE 65 U/L (38-126); ANION GAP 14 (5-19); ASPARTATE AMINO TRANSFERASE 53 U/L (17-59); BILIRUBIN,DIRECT 0.3 mg/dL (0.0-0.4); BILIRUBIN,TOTAL 0.6 mg/dL (0.2-1.3); BLOOD UREA NITROGEN 11 mg/dL (7-20); CALCIUM 9.9 mg/dL (8.4-10.2); CARBON DIOXIDE 28 mmol/L (22-30); CHLORIDE 96 mmol/L (98-107); GLUCOSE 105 mg/dL (75-110); LIPASE 161.3 U/L (23-300); POTASSIUM 4.2 mmol/L (3.6-5.0); SODIUM 138.3 mmol/L (137-145); TOTAL PROTEIN 7.6 g/dL (6.3-8.2)
--- NOTE | 2017-12-10 04:58 | RADIOLOGY REPORT (SQ) ---
EXAM DESCRIPTION: XR CHEST 1 VIEW COMPLETED DATE/TME: 12/10/2017 04:13 CLINICAL HISTORY: chest pain COMPARISON: None. FINDINGS: Single frontal view of the chest. Atherosclerotic calcification aortic arch. Leads overlie the chest. No consolidation, pneumothorax, or pleural effusion. No displaced rib fractures identified. Upper abdominal soft tissues are unremarkable. IMPRESSION: 1. No acute pulmonary process identified.
[2017-12-10] MEDS ORDERED: PANTOPRAZOLE SODIUM 40 MG VIAL IV ONE (05:12)
[2017-12-10] MEDS ORDERED: NITROGLYCERIN 2% OINTMENT 1 GM PACKET TP ONE (05:12)
[2017-12-10 08:04] VITALS: BP 103/62
--- NOTE | 2017-12-10 10:23 | EKG REPORT ---
SEVERITY:- OTHERWISE NORMAL ECG - SINUS RHYTHM BORDERLINE RIGHT AXIS DEVIATION : Confirmed by: Carly Spain MD 10-Dec-2017 10:23:01
== END 2017-12-10 08:50 | disposition home or self-care (01) ==
LOC: ER 04:02
DX: R10.13 Epigastric pain (principal); R07.9 Chest pain, unspecified; F10.20 Alcohol dependence, uncomplicated; R11.10 Vomiting, unspecified; F17.200 Nicotine dependence, unspecified, uncomplicated; F14.10 Cocaine abuse, uncomplicated; I10 Essential (primary) hypertension; J44.9 Chronic obstructive pulmonary disease, unspecified; Z82.49 Family history of ischemic heart disease and other diseases of the circulatory system; Z91.041 Radiographic dye allergy status
CPT/HCPCS: 93005; 99285; 96361; 96374; 96375; 36415; 83690; 85025; 80053; 84484; 71045; 93010; J3490 ×4; S0164; J2405; J7030

== ENCOUNTER 2018-01-03 09:34 | Emergency (ER) | payer MEDICAID ==
[2018-01-03 10:50] LABS: ABSOLUTE LYMPHOCYTES (AUTO) 1.5 10^3/uL (0.5-4.7); ABSOLUTE MONOCYTES (AUTO) 0.5 10^3/uL (0.1-1.4); ABSOLUTE NEUT (AUTO) 4.9 10^3/uL (1.7-8.2); BASOPHILS % (AUTO) 0.4 % (0-2); EOSINOPHILS % (AUTO) 0.5 % (0-6); HEMATOCRIT 46.9 % (37.9-51.0); HEMOGLOBIN 16.6 g/dL (13.5-17.0); LYMPHOCYTES % (AUTO) 21.3 % (13-45); MEAN CORPUSCULAR HEMOGLOBIN 32.6 pg (27.0-33.4); MEAN CORPUSCULAR HGB CONC 35.3 g/dL (32.0-36.0); MEAN CORPUSCULAR VOLUME 92 fl (80-97); MONOCYTES % (AUTO) 7.7 % (3-13); PLATELET COUNT 265 10^3/uL (150-450); RED BLOOD COUNT 5.08 10^6/uL (4.35-5.55); RED CELL DISTRIBUTION WIDTH 14.3 % (11.5-14.0); SEGMENTED NEUTROPHILS % (AUTO) 70.1 % (42-78); TOTAL CELLS COUNTED % (AUTO) 100 %; WHITE BLOOD COUNT 7.1 10^3/uL (4.0-10.5)
--- NOTE | 2018-01-03 11:04 | ER Document Report ---
ED General - General Chief Complaint: Dizziness Stated Complaint: DIZZY Time Seen by Provider: 01/03/18 09:55 Notes: Patient says that he has been feeling dizzy as if the room is spinning, abdomen pain, vomiting and pooping blood, for the past couple of days. He was seen at [facility] yesterday and had extensive lab studies. Also had an EKG and x-ray of the chest. All the studies, according to the patient, were normal. Patient went to the [facility] yesterday and had extensive lab studies, EKG, and chest x-ray and was told everything came back essentially normal. He continues to have symptoms and went to a local clinic in town here today, but they declined to take care of him because his complaints were to numerous and significant. Patient says that he has had prior episodes of these various symptoms, but never had them altogether. He said he first started feeling dizzy, especially with head movement. Then he became nauseated and then he began to have vomiting. He has had stomach pains for "a while". He says that his vomitus had a very small amount of streaky red blood and he had similar in bowel movements. Patient does not have hemorrhoids. Pain is throughout the entire abdomen and is not localized. He is noted some chills and sweats. Patient says he is between doctors as his previous primary care doctor left [facility] and is not found a new doctor. Patient has multiple medical problems and is out of most of his medicines. Conditions include anxiety, depression, hypertension, COPD, acid reflux, and chronic pain. Patient is on omeprazole and on lisinopril 20/HCTZ 25, both of which he has, but he is out of the following medications: Albuterol inhaler, Amlodipine 5 mg Buspirone 15 mg 3 times daily Oxycodone 5 Lyrica Flomax, Chantix Trazodone 100 mg Ambien 10 mg Patient is here with his mother and they both agree that anxiety may be causing most of his symptoms. TRAVEL OUTSIDE OF THE [place] IN LAST 30 DAYS: No - Related Data Allergies/Adverse Reactions: Iodinated Contrast- Oral and IV Dye Allergy (Verified 01/03/18 10:03) Past Medical History - Social History Smoking Status: Current Every Day Smoker Family History: Reviewed & Not Pertinent, CAD Patient has suicidal ideation: No Patient has homicidal ideation: No - Past Medical History Cardiac Medical History: Reports: Hx Hypercholesterolemia, Hx Hypertension Denies: Hx Coronary Artery Disease, Hx Heart Attack Pulmonary Medical History: Reports: Hx Bronchitis - hx of, Hx COPD - inhalers, Hx Sleep Apnea, Hx Tuberculosis - 2 years ago exposure Denies: Hx Asthma, Hx Pneumonia Neurological Medical History: Denies: Hx Cerebrovascular Accident, Hx Seizures Renal/ Medical History: Reports: Hx Kidney Stones GI Medical History: Reports: Hx Gastroesophageal Reflux Disease, Hx Hiatal Hernia, Hx Pancreatitis - ETOH. Denies: Hx Hepatitis, Hx Ulcer Musculoskeletal Medical History: Reports Hx Arthritis - mild Psychiatric Medical History: Reports: Hx Anxiety, Hx Bipolar Disorder, Hx Depression Infectious Medical History: Denies: Hx Hepatitis Past Surgical History: Reports: Hx Cholecystectomy, Hx Orthopedic Surgery - Injured left leg, Hx Pancreatic Surgery - Immunizations Hx Diphtheria, Pertussis, Tetanus Vaccination: Yes Review of Systems - Review of Systems Notes: REVIEW OF SYSTEMS: CONSTITUTIONAL : Denies fever. EENT: Denies eye, ear, nose or mouth or throat pain or other symptoms. CARDIOVASCULAR: Denies chest pain. RESPIRATORY: Occasional cough, and has some shortness of breath, but denies chest congestion. GASTROINTESTINAL: See HPI. GENITOURINARY: Denies difficulty or painful urinating, urinary frequency, blood in urine. MUSCULOSKELETAL: Denies back or neck pain. Denies joint pain or swelling. SKIN: Denies rash or skin lesions. NEUROLOGICAL: Denies LOC or altered mental status. See HPI. Denies headache. Denies sensory loss or motor deficits. ALL OTHER SYSTEMS REVIEWED AND NEGATIVE. Physical Exam - Vital signs Vitals: Temp Pulse Resp BP Pulse Ox 98.0 F 98 18 160/100 H 97 01/03/18 09:38 01/03/18 09:38 01/03/18 09:38 01/03/18 09:38 01/03/18 09:38 Interpretation: Hypertensive - Mild Notes: PHYSICAL EXAMINATION: GENERAL: Well-appearing, in no acute distress. HEAD: Atraumatic, normocephalic. EYES: Pupils equal round and reactive to light, extraocular movements intact. ENT: oropharynx clear without exudates. Moist mucous membranes. NECK: Normal range of motion, supple. LUNGS: Breath sounds clear and equal bilaterally. HEART: Regular rate and rhythm without murmurs. ABDOMEN: Soft, nontender. No guarding or rebound. No masses. BACK: No tenderness throughout entire back. EXTREMITIES: Normal range of motion without pain. NEUROLOGICAL: Normal speech, normal gait. Normal sensory, motor, and reflex exams. Awake, alert, and oriented x3. Cranial nerves normal. PSYCH: Normal mood, normal affect. Very anxious, however. Here being evaluated with his mother. SKIN: Warm, dry, no rashes. Course - Re-evaluation Re-evalutation: 01/03/18 11:08 Advised the patient that I will be writing prescriptions for some of his medications that he requires such as his blood pressure medications. However, we do not manage chronic pain in the emergency department and the patient was so informed so I am not writing him any prescriptions for his oxycodone. Patient was given prescriptions for trazodone, amlodipine, albuterol inhaler, and Lyrica, all of which he is already on plus a prescription for Vistaril for him to take as needed for anxiety. Stressed with the patient the need for him to be followed up by to get his blood pressure under control and help him with his anxiety. - Vital Signs Vital signs: Temp Pulse Resp BP Pulse Ox 99.0 F 90 16 157/107 H 97 01/03/18 14:57 01/03/18 14:57 01/03/18 14:57 01/03/18 14:57 01/03/18 14:57 - Laboratory Result Diagrams: 01/03/18 10:29 01/03/18 10:29 Laboratory results interpreted by me: 01/03/18 01/03/18 01/03/18 10:29 10:29 11:04 RDW 14.3 H Calcium 10.4 H Direct Bilirubin 0.6 H Total Protein 8.3 H Urine Protein 30 H Urine Ketones 20 H Urine Urobilinogen 2.0 H - EKG Interpretation by Me EKG shows normal: Sinus rhythm Rate: Normal Rhythm: NSR - At 82 Discharge - Discharge Clinical Impression: Dizziness, Hypertension, Anxiety Condition: Stable Disposition: HOME, SELF-CARE Additional Instructions: DIZZINESS: Under normal circumstances, your sense of balance is controlled by a number of signals that your brain receives from several locations: Eyes. No matter what your position, visual signals help you determine where your body is in space and how it's moving. Sensory nerves. These are in your skin, muscles and joints. Sensory nerves send messages to your brain about body movements and positions. Inner ear. The organ of balance in your inner ear is the vestibular labyrinth. It includes loop-shaped structures (semicircular canals) that contain fluid and fine, hair-like sensors that monitor the rotation of your head. Near the semicircular canals are the utricle and saccule, which contain tiny particles called otoconia (u-ome-EYT-nee-uh). These particles are attached to sensors that help detect gravity and slci-lyu-fsrgw motion. Good balance depends on at least two of these three sensory systems working well. For instance, closing your eyes while washing your hair in the shower doesn't mean you'll lose your balance. Signals from your inner ear and sensory nerves help keep you upright. However, if your central nervous system can't process signals from all of these locations, if the messages are contradictory, or if the sensory systems aren't functioning properly, you may experience loss of balance. Dizziness may have a number of potential causes. These may include: Vertigo Vertigo - the false sense of motion or spinning - is the most common symptom of dizziness. Sitting up or moving around may make it worse. Sometimes vertigo is severe enough to cause nausea and vomiting. Vertigo usually results from a problem with the nerves and the structures of the balance mechanism in your inner ear (vestibular system), which sense movement and changes in your head position. Abnormal rhythmic eye movements ( nystagmus) almost always accompany vertigo. Causes of vertigo may include: Benign paroxysmal positional vertigo (BPPV). BPPV involves intense, brief episodes of vertigo associated with a change in the position of your head, often when you turn over in bed or sit up in the morning. It occurs when normal calcium carbonate crystals (otoconia) break loose and fall into the wrong part of the canals in your inner ear. When these particles shift, they stimulate sensors in your ear, producing an episode of vertigo. Doctors don't know what causes BPPV, but it may be a natural result of aging. Trauma to your head also may lead to BPPV. Inflammation in the inner ear. Signs and symptoms of inflammation of the inner ear (acute vestibular neuronitis or labyrinthitis) include sudden, intense vertigo that may persist for several days, with nausea and vomiting. It can be incapacitating, requiring bed rest to minimize the signs and symptoms. Fortunately, vestibular neuronitis generally subsides and clears up on its own. Recovery time may be shorter with vestibular rehabilitation exercises. Although the cause of this condition is unknown, it may be a viral infection. Meniere's disease. This disease involves the excessive buildup of fluid in your inner ear. It may affect adults at any age and is characterized by sudden episodes of vertigo lasting 30 minutes to an hour or longer. Other signs and symptoms include the feeling of fullness in your ear, buzzing or ringing in your ear (tinnitus), and fluctuating hearing loss. The cause of Meniere's disease is unknown. Vestibular migraine. People who experience a vestibular migraine are very sensitive to motion. Dizziness and vertigo caused by a vestibular migraine may be triggered by turning your head quickly, being in a crowded or confusing place , driving or riding in a vehicle, or even watching movement on TV. A vestibular migraine may cause feelings of imbalance or unsteadiness, hearing loss, "muffled " hearing, or ringing in your ears (tinnitus). For most people with a vestibular migraine, vertigo doesn't necessarily happen at the same time as the headache. Instead, typical migraine triggers may lead to vertigo without an actual migraine. Attacks of migrainous vertigo can last from a few minutes to several days. Acoustic neuroma. An acoustic neuroma (schwannoma) is a noncancerous (benign ) growth on the acoustic nerve, which connects the inner ear to your brain. Signs and symptoms of an acoustic neuroma may include dizziness, loss of balance , hearing loss and tinnitus. Rapid changes in motion. Riding on roller coasters or in boats, cars or even airplanes may on occasion make you dizzy. Other causes. Rarely, vertigo can be a symptom of a more serious neurological problem such as a stroke, brain hemorrhage or multiple sclerosis. Feeling of faintness (presyncope) "Presyncope" is the medical term for feeling faint and lightheaded without losing consciousness. Sometimes nausea, pale skin and a sense of dizziness accompany a feeling of faintness. Causes of presyncope include: Drop in blood pressure (orthostatic hypotension). A dramatic drop in your systolic blood pressure - the higher number in your blood pressure reading - may result in lightheadedness or a feeling of faintness. It can occur after sitting up or standing too quickly. Inadequate output of blood from the heart. Conditions such as partially blocked arteries (atherosclerosis), disease of the heart muscle (cardiomyopathy) , abnormal heart rhythm (arrhythmia) or a decrease in blood volume may cause inadequate blood flow from your heart. Loss of balance (disequilibrium) Disequilibrium is the loss of balance or the feeling of unsteadiness when you walk. Causes may include: Inner ear (vestibular) problems. Abnormalities with your inner ear can cause you to feel like you are floating, have a heavy head or are unsteady in the dark. Sensory disorders. Failing vision and nerve damage in your legs (peripheral neuropathy) are common in older adultsand may result in difficulty maintaining your balance. Joint and muscle problems. Muscle weakness and osteoarthritis - the type of arthritis that involves wear and tear of your joints - can contribute to loss of balance when it involves your weight-bearing joints. Medications. Loss of balance can be a side effect of certain medications, such as anti-seizure drugs, sedatives and tranquilizers. Lightheadedness and other kinds of dizziness Feeling lightheaded is the feeling of being "spaced out" or having the sensation of spinning inside your head. It can also give you the sensation that if your lightheadedness worsens, you might lose consciousness. Causes may include: Inner ear disorders. These abnormalities of your inner ear can lead to illusions of motion and make you feel like you're floating. Anxiety disorders. Certain anxiety disorders, such as panic attacks and a fear of leaving home or being in large, open spaces (agoraphobia), may cause lightheadedness. Hyperventilation. Abnormally rapid breathing that often accompanies anxiety disorders may make you feel lightheaded. NORMAL EXAM AND WORKUP: At this time, your examination and workup show no significant abnormality. No significant abnormal physical findings were noted. All laboratory, EKG, and imaging (x-ray, CT scans, ultrasound) studies that were ordered show no significant abnormality. Although your examination and all studies that were ordered showed no significant abnormal finding, there are no examinations and no studies that are 100% accurate. There is always the possibility that some abnormality could exist and not be detected with physical examination or within the limits and capabilities of laboratory and other studies. You should return or follow up as you were instructed on your visit today for further evaluation if your symptoms do not resolve. Anxiety The physician feels that some of your health problems are being caused by anxiety. Anxiety affects your health in many ways. Anxiety alone can cause palpitations, sweats, chest pains, abdominal pains, shortness of breath, and headaches. It contributes to ulcer disease, high blood pressure, irritable bowel syndrome, and has been shown to cause flare-ups of many other diseases. Anxiety is not a simple disorder to treat. If the anxiety is due to recent life stresses, you may simply need time to "work through" the changes. If the anxiety is due to an underlying unhappiness with yourself or due to psychiatric disturbance, professional help will be needed. Your physician can refer you for further help if needed. Anti-anxiety medication is occasionally given if the stress is acute or if you are having trouble sleeping. Chronic or frequent use of these medications is not a good idea because the body becomes reliant on it, preventing you from dealing with life's normal stresses. FOLLOW-UP CARE: If you have been referred to a physician for follow-up care, call the physician s office for an appointment as you were instructed or within the next two days. If you experience worsening or a significant change in your symptoms, notify the physician immediately or return to the Emergency Department at any time for re-evaluation. Prescriptions: Albuterol Sulfate [Proair HFA Inhalation Aerosol 8.5 gm MDI] 2 puff IH Q4H PRN # 1 mdi PRN Reason: Amlodipine Besylate [Norvasc 5 mg Tablet] 5 mg PO DAILY #30 tablet Hydroxyzine Pamoate [Vistaril 25 mg Capsule] 25 mg PO QIDP PRN #40 capsule PRN Reason: Anxiety Pregabalin [Lyrica 100 Mg Capsule] 100 mg PO TID #90 capsule Trazodone HCl 400 mg PO HSP PRN #40 tablet PRN Reason:
[2018-01-03 11:15] LABS: ALANINE AMINOTRANSFERASE 66 U/L (21-72); ALKALINE PHOSPHATASE 76 U/L (38-126); ANION GAP 14 (5-19); ASPARTATE AMINO TRANSFERASE 54 U/L (17-59); BILIRUBIN,DIRECT 0.6 mg/dL (0.0-0.4); BILIRUBIN,TOTAL 1.3 mg/dL (0.2-1.3); BLOOD UREA NITROGEN 8 mg/dL (7-20); CALCIUM 10.4 mg/dL (8.4-10.2); CARBON DIOXIDE 27 mmol/L (22-30); CHLORIDE 99 mmol/L (98-107); GLUCOSE 103 mg/dL (75-110); POTASSIUM 4.5 mmol/L (3.6-5.0); SODIUM 139.5 mmol/L (137-145); TOTAL PROTEIN 8.3 g/dL (6.3-8.2)
[2018-01-03 11:27] LABS: CREATINE KINASE MB 1.25 ng/mL (<4.55)
[2018-01-03 11:28] LABS: TROPONIN I < 0.012 ng/mL
[2018-01-03 12:05] LABS: APPEARANCE,URINE SLIGHTLY-CLOUDY; BILIRUBIN,URINE NEGATIVE (NEGATIVE); COLOR,URINE YELLOW; GLUCOSE, URINE NEGATIVE (NEGATIVE); KETONES,URINE 20 mg/dL (NEGATIVE); LEUKOCYTE ESTERASE,URINE NEGATIVE (NEGATIVE); NITRITE,URINE NEGATIVE (NEGATIVE); PROTEIN,URINE 30 mg/dL (NEGATIVE); URINE SPECIFIC GRAVITY 1.014
--- NOTE | 2018-01-03 12:32 | RADIOLOGY REPORT (SQ) ---
EXAM DESCRIPTION: CHEST 2 VIEWS COMPLETED DATE/TIME: 01/03/2018 11:55 am REASON FOR STUDY: Shortness of breath, Hx of COPD COMPARISON: 12/10/2017 EXAM PARAMETERS: NUMBER OF VIEWS: two views TECHNIQUE: Digital Frontal and Lateral radiographic views of the chest acquired. RADIATION DOSE: NA LIMITATIONS: none FINDINGS: LUNGS AND PLEURA: No opacities, masses or pneumothorax. No pleural effusion. MEDIASTINUM AND HILAR STRUCTURES: No masses or contour abnormalities. HEART AND VASCULAR STRUCTURES: Heart normal size. No evidence for failure. BONES: No acute findings. HARDWARE: None in the chest. OTHER: No other significant finding. IMPRESSION: NO ACUTE RADIOGRAPHIC FINDING IN THE CHEST. TECHNICAL DOCUMENTATION: JOB ID: [id number] [employer]- All Rights Reserved Reading location - IP/workstation name: [email or web address]
--- NOTE | 2018-01-03 13:41 | EKG REPORT ---
SEVERITY:- NORMAL ECG - SINUS RHYTHM : Confirmed by: Rowdy Lopez MD 03-Jan-2018 13:40:46
[2018-01-03 18:22] VITALS: BP 157/107
== END 2018-01-03 14:57 | disposition home or self-care (01) ==
LOC: ER 09:34
DX: R42 Dizziness and giddiness (principal); I10 Essential (primary) hypertension; F41.9 Anxiety disorder, unspecified; J44.9 Chronic obstructive pulmonary disease, unspecified; K21.9 Gastro-esophageal reflux disease without esophagitis; M19.90 Unspecified osteoarthritis, unspecified site; Z90.49 Acquired absence of other specified parts of digestive tract; F17.200 Nicotine dependence, unspecified, uncomplicated; Z82.49 Family history of ischemic heart disease and other diseases of the circulatory system
CPT/HCPCS: 36415; 71046; 80053; 81001; 82553; 83690; 84484; 85025; 93005; 93010; 99284

== ENCOUNTER 2018-03-03 14:07 | Emergency (ER) | payer MEDICAID, OTHER ==
[2018-03-03 14:23] VITALS: BP 147/91
[2018-03-03] MEDS ORDERED: MORPHINE SULFATE 10 MG/ML INJ IV ONE (14:24)
[2018-03-03] MEDS ORDERED: ONDANSETRON HCL INJ/PF 4 MG/2 ML SDV IV ONE (14:24)
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
== END 2018-03-03 17:28 | disposition home or self-care (01) ==
LOC: ER 14:07
DX: S33.5XXA Sprain of ligaments of lumbar spine, initial encounter (principal); S80.02XA Contusion of left knee, initial encounter; S80.212A Abrasion, left knee, initial encounter; M79.605 Pain in left leg; V29.88XA Motorcycle rider (driver) (passenger) injured in other specified transport accidents, initial encounter; Y93.9 Activity, unspecified; I10 Essential (primary) hypertension; J44.9 Chronic obstructive pulmonary disease, unspecified
CPT/HCPCS: 99283; 96374; 96375; 73564; 72110; L1830; J2270; J2405

== ENCOUNTER 2018-05-26 08:48 | Emergency (ER) | payer MEDICAID ==
--- NOTE | 2018-05-26 09:51 | EKG REPORT ---
SEVERITY:- NORMAL ECG - SINUS RHYTHM : Confirmed by: Carly Spain MD 26-May-2018 09:51:18
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
[2018-05-26] MEDS ORDERED: LIDOCAINE 5% (700 MG) TRANSDERMAL ADH..PATCH TP ONE (10:54)
--- NOTE | 2018-05-26 10:56 | ER Document Report ---
ED General - General Chief Complaint: Rib Pain Stated Complaint: FALL/RIB PAIN Time Seen by Provider: 05/26/18 09:11 TRAVEL OUTSIDE OF THE [place] IN LAST 30 DAYS: No - HPI Patient complains to provider of: Left lateral rib pain Notes: Patient here for evaluation of left lateral rib pain patient states fell off the truck approximately 2 days prior to arrival. Patient states continued her therefore came to the ER for further evaluation. Patient denies any anterior chest pain with radiation to the neck arm or jaw. Patient states pain is reproducible with touching to the chest and also hurts when he takes a deep breath in. Patient otherwise resting company upon my evaluation denies any blood thinning medications. - Related Data Allergies/Adverse Reactions: Iodinated Contrast- Oral and IV Dye Allergy (Verified 05/26/18 08:51) Past Medical History - Social History Smoking Status: Current Every Day Smoker Chew tobacco use (# tins/day): No Frequency of alcohol use: Occasional Drug Abuse: None Family History: Reviewed & Not Pertinent, CAD Patient has suicidal ideation: No Patient has homicidal ideation: No - Past Medical History Cardiac Medical History: Reports: Hx Hypercholesterolemia, Hx Hypertension Denies: Hx Coronary Artery Disease, Hx Heart Attack Pulmonary Medical History: Reports: Hx Bronchitis - hx of, Hx COPD - inhalers, Hx Sleep Apnea, Hx Tuberculosis - 2 years ago exposure Denies: Hx Asthma, Hx Pneumonia Neurological Medical History: Denies: Hx Cerebrovascular Accident, Hx Seizures Renal/ Medical History: Reports: Hx Kidney Stones. Denies: Hx Peritoneal Dialysis GI Medical History: Reports: Hx Gastroesophageal Reflux Disease, Hx Hiatal Hernia, Hx Pancreatitis - ETOH. Denies: Hx Hepatitis, Hx Ulcer Musculoskeletal Medical History: Reports Hx Arthritis - mild Psychiatric Medical History: Reports: Hx Anxiety, Hx Bipolar Disorder, Hx Depression Infectious Medical History: Denies: Hx Hepatitis Past Surgical History: Reports: Hx Abdominal Surgery, Hx Cholecystectomy, Hx Orthopedic Surgery - Injured left leg, Hx Pancreatic Surgery. Denies: Hx Appendectomy, Hx Bowel Surgery, Hx Coronary Artery Bypass Graft, Hx Gastric Bypass Surgery, Hx Herniorrhaphy, Hx Open Heart Surgery, Hx Pacemaker, Hx Tonsillectomy, Hx Urinary Tract Surgery, Hx Vascular Surgery - Immunizations Hx Diphtheria, Pertussis, Tetanus Vaccination: Yes Review of Systems - Review of Systems Constitutional: No symptoms reported EENT: No symptoms reported Cardiovascular: Chest pain Respiratory: No symptoms reported Gastrointestinal: No symptoms reported Genitourinary: No symptoms reported Male Genitourinary: No symptoms reported Musculoskeletal: No symptoms reported Skin: No symptoms reported Hematologic/Lymphatic: No symptoms reported Neurological/Psychological: No symptoms reported -: Yes All other systems reviewed and negative Physical Exam - Vital signs Vitals: Temp Pulse Resp BP Pulse Ox 97.9 F 104 H 16 152/88 H 94 05/26/18 08:56 05/26/18 08:56 05/26/18 08:56 05/26/18 08:56 05/26/18 08:56 Interpretation: Normal - General General appearance: Appears well, Alert - HEENT Head: Normocephalic, Atraumatic Eyes: Normal Pupils: PERRL - Respiratory Respiratory status: No respiratory distress Chest status: Nontender Breath sounds: Normal Chest palpation: Normal Notes: Examination of the chest wall does not reveal any bruising abrasions or traumatic findings. Palpation of the lateral chest wall and anterior left chest wall is painful and reproduces the patient's pain. There is no bruising ever developing a traumatic findings of the left upper quadrant as well I did perform a bedside ultrasound. Bedside ultrasound of the left upper quadrant shows no free fluid normal kidney normal spleen patient ultrasound of the heart shows no pericardial effusions positive cardiac motion - Cardiovascular Rhythm: Regular Heart sounds: Normal auscultation Murmur: No - Abdominal Inspection: Normal Distension: No distension Bowel sounds: Normal Tenderness: Nontender Organomegaly: No organomegaly - Back Back: Normal, Nontender - Extremities General upper extremity: Normal inspection, Nontender, Normal color, Normal ROM, Normal temperature General lower extremity: Normal inspection, Nontender, Normal color, Normal ROM, Normal temperature, Normal weight bearing. No: Daria's sign - Neurological Neuro grossly intact: Yes Cognition: Normal Orientation: AAOx4 Figueroa Coma Scale Eye Opening: Spontaneous Orla Coma Scale Verbal: Oriented Orla Coma Scale Motor: Obeys Commands Orla Coma Scale Total: 15 Speech: Normal Motor strength normal: LUE, RUE, LLE, RLE Sensory: Normal - Psychological Associated symptoms: Normal affect, Normal mood - Skin Skin Temperature: Warm Skin Moisture: Dry Skin Color: Normal Course - Re-evaluation Re-evalutation: 05/26/18 10:52 Patient will likely suffering from deep contusion from the fall. Patient the patient had a recommend taking Tylenol Motrin for pain control Ultram for severe pain. Patient otherwise be discharged home follow-up primary care physician. Patient also be given lidocaine patch here in ER. - Vital Signs Vital signs: Temp Pulse Resp BP Pulse Ox 97.9 F 104 H 16 152/88 H 94 05/26/18 08:56 05/26/18 08:56 05/26/18 08:56 05/26/18 08:56 05/26/18 08:56 - EKG Interpretation by Me Additional EKG results interpreted by me: 05/26/18 10:56 EKG shows rate of 83 AL of 228 QRS duration 94 QT QTc corrected for away for 37. No concerning ST segment elevations depression or T wave changes Discharge - Discharge Clinical Impression: Rib contusion Qualifiers: Encounter type: initial encounter Laterality: left Qualified Code(s): S20.212A - Contusion of left front wall of thorax, initial encounter Condition: Good Disposition: HOME, SELF-CARE Instructions: Rib Contusion ([facility]) Additional Instructions: Chest x-ray and bedside ultrasound today did not show any critical pathology. Her EKG also does not show any critical pathology. I recommend she follow-up with your primary care physician continue taking Tylenol and Motrin as prescribed take Ultram as prescribed return to ER symptoms worsen. Prescriptions: Ibuprofen [Motrin 600 mg Tablet] 600 mg PO Q8HP PRN #21 tablet PRN Reason: Tramadol HCl [Ultram 50 mg Tablet] 50 mg PO ASDIR PRN #14 tablet PRN Reason: Forms: Return to Work
[2018-05-26 11:04] VITALS: BP 127/84
== END 2018-05-26 11:05 | disposition home or self-care (01) ==
LOC: ER 08:48
DX: S20.212A Contusion of left front wall of thorax, initial encounter (principal); R07.81 Pleurodynia; W17.89XA Other fall from one level to another, initial encounter; F17.200 Nicotine dependence, unspecified, uncomplicated; I10 Essential (primary) hypertension; J44.9 Chronic obstructive pulmonary disease, unspecified; Z91.041 Radiographic dye allergy status
CPT/HCPCS: 93005; 99284; 71101; 93010; J3490

== ENCOUNTER → 2018-06-16 | Outpatient (CLI) | payer MEDICAID ==
--- NOTE | 2018-06-16 11:02 | RADIOLOGY REPORT (SQ) ---
EXAM DESCRIPTION: CHEST PA/LATERAL COMPLETED DATE/TIME: 06/16/2018 9:53 am REASON FOR STUDY: COPD COMPARISON: 01/03/2018, 12/10/2017 EXAM PARAMETERS: NUMBER OF VIEWS: two views TECHNIQUE: Digital Frontal and Lateral radiographic views of the chest acquired. RADIATION DOSE: NA LIMITATIONS: none FINDINGS: LUNGS AND PLEURA: No opacities, masses or pneumothorax. No pleural effusion. MEDIASTINUM AND HILAR STRUCTURES: No masses or contour abnormalities. HEART AND VASCULAR STRUCTURES: Heart normal size. No evidence for failure. BONES: No acute findings. HARDWARE: None in the chest. OTHER: No other significant finding. IMPRESSION: NO SIGNIFICANT RADIOGRAPHIC FINDING IN THE CHEST. TECHNICAL DOCUMENTATION: JOB ID: [id number] [employer]- All Rights Reserved Reading location - IP/workstation name: [email or web address]
== END ==
LOC: OD 09:37
PROVIDERS: ATTEND Nurse Practitioner Family
DX: J44.9 Chronic obstructive pulmonary disease, unspecified (principal)
CPT/HCPCS: 71046

== ENCOUNTER 2018-07-29 09:25 | Emergency (ER) | payer MEDICAID ==
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
--- NOTE | 2018-07-29 10:18 | RADIOLOGY REPORT (SQ) ---
EXAM DESCRIPTION: CT HEAD WITHOUT COMPLETED DATE/TIME: 07/29/2018 10:05 am REASON FOR STUDY: upper extremity weakness COMPARISON: 02/11/2017 TECHNIQUE: Axial images acquired through the brain without intravenous contrast. Images reviewed wi th bone, brain and subdural windows. Additional sagittal and coronal reconstructions were generated. Images stored on PACS. All CT scanners at this facility use dose modulation, iterative reconstruction, and/or weight based d osing when appropriate to reduce radiation dose to as low as reasonably achievable (ALARA). [facility]: Dose Right [facility]: CareDose [facility]: Dose Right [facility]: Teradose 4D [facility]: Smart Travel Appeal RADIATION DOSE: CT Rad equipment meets quality standard of care and radiation dose reduction techniq ues were employed. CTDIvol: 53.2 mGy. DLP: 1070 mGy-cm. mGy. LIMITATIONS: None. FINDINGS: VENTRICLES: Normal size and contour. CEREBRUM: No masses. No hemorrhage. No midline shift. No evidence for acute infarction. Normal gra y/white matter differentiation. No areas of low density in the white matter. CEREBELLUM: No masses. No hemorrhage. No alteration of density. No evidence for acute infarction. EXTRAAXIAL SPACES: No fluid collections. No masses. ORBITS AND GLOBE: No intra- or extraconal masses. Normal contour of globe without masses. CALVARIUM: No fracture. PARANASAL SINUSES: No fluid or mucosal thickening. SOFT TISSUES: No mass or hematoma. OTHER: No other significant finding. IMPRESSION: NORMAL BRAIN CT WITHOUT CONTRAST. EVIDENCE OF ACUTE STROKE: NO. COMMENT: Quality ID # [id number]: Final reports with documentation of one or more dose reduction techniques (e.g., Automated exposure control, adjustment of the mA and/or kV according to patient size, use of iterative reconstruction technique) TECHNICAL DOCUMENTATION: JOB ID: [id number] [employer]- All Rights Reserved Reading location - IP/workstation name: [email or web address]
[2018-07-29 10:23] LABS: ABSOLUTE EOSINOPHILS # (AUTO) 0.1 10^3/uL (0.0-0.6); ABSOLUTE LYMPHOCYTES (AUTO) 1.7 10^3/uL (0.5-4.7); ABSOLUTE MONOCYTES (AUTO) 0.6 10^3/uL (0.1-1.4); ABSOLUTE NEUT (AUTO) 5.5 10^3/uL (1.7-8.2); BASOPHILS % (AUTO) 0.6 % (0-2); EOSINOPHILS % (AUTO) 1.3 % (0-6); HEMOGLOBIN 14.9 g/dL (13.5-17.0); LYMPHOCYTES % (AUTO) 21.2 % (13-45); MEAN CORPUSCULAR HEMOGLOBIN 31.6 pg (27.0-33.4); MEAN CORPUSCULAR HGB CONC 34.6 g/dL (32.0-36.0); MEAN CORPUSCULAR VOLUME 91 fl (80-97); MONOCYTES % (AUTO) 7.5 % (3-13); PLATELET COUNT 311 10^3/uL (150-450); RED BLOOD COUNT 4.71 10^6/uL (4.35-5.55); RED CELL DISTRIBUTION WIDTH 16.2 % (11.5-14.0); SEGMENTED NEUTROPHILS % (AUTO) 69.4 % (42-78); TOTAL CELLS COUNTED % (AUTO) 100 %; WHITE BLOOD COUNT 7.9 10^3/uL (4.0-10.5)
[2018-07-29] MEDS ORDERED: TRAMADOL HCL 50 MG TABLET PO ONE (10:49)
[2018-07-29 11:24] LABS: APPEARANCE,URINE CLEAR; BILIRUBIN,URINE NEGATIVE (NEGATIVE); COLOR,URINE YELLOW; GLUCOSE, URINE NEGATIVE (NEGATIVE); KETONES,URINE NEGATIVE (NEGATIVE); LEUKOCYTE ESTERASE,URINE NEGATIVE (NEGATIVE); NITRITE,URINE NEGATIVE (NEGATIVE); PROTEIN,URINE NEGATIVE (NEGATIVE); URINE SPECIFIC GRAVITY 1.015; UROBILINOGEN,URINE NEGATIVE mg/dL (<2.0)
[2018-07-29 12:01] LABS: ALANINE AMINOTRANSFERASE 26 U/L (21-72); ALBUMIN 4.6 g/dL (3.5-5.0); ALKALINE PHOSPHATASE 75 U/L (38-126); ANION GAP 9 (5-19); ASPARTATE AMINO TRANSFERASE 24 U/L (17-59); BILIRUBIN,DIRECT 0.4 mg/dL (0.0-0.4); BILIRUBIN,TOTAL 0.6 mg/dL (0.2-1.3); BLOOD UREA NITROGEN 14 mg/dL (7-20); CALCIUM 9.9 mg/dL (8.4-10.2); CARBON DIOXIDE 22 mmol/L (22-30); CHLORIDE 106 mmol/L (98-107); GLUCOSE 98 mg/dL (75-110); POTASSIUM 4.6 mmol/L (3.6-5.0); SODIUM 136.8 mmol/L (137-145); TOTAL PROTEIN 7.3 g/dL (6.3-8.2)
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
[2018-07-29 15:26] VITALS: BP 98/80
--- NOTE | 2018-07-29 15:37 | RADIOLOGY REPORT (SQ) ---
EXAM DESCRIPTION: MRI CERVICAL SPINE WITHOUT COMPLETED DATE/TIME: 07/29/2018 2:59 pm REASON FOR STUDY: pain COMPARISON: None. TECHNIQUE: Sagittal and Axial imaging includes T1, T2, STIR and gradient echo sequences. LIMITATIONS: None. FINDINGS: ALIGNMENT: Normal. VERTEBRAE: Intact. BONE MARROW: Normal. No marrow replacement or reactive changes. DISCS: Normal. No significant abnormal signal or loss of height. HARDWARE: None in the spine. CORD AND BASE OF BRAIN: Normal in size and signal intensity. SOFT TISSUES: No soft tissue masses. C1-C2: No significant spinal stenosis. C2-C3: No significant spinal stenosis or exit foraminal stenosis. C3-C4: No significant spinal stenosis or exit foraminal stenosis. C4-C5: No significant spinal stenosis or exit foraminal stenosis. C5-C6: Disc osteophyte complex with mild narrowing of the exit foramina. C6-C7: Disc osteophyte complex with mild narrowing of the exit foramina. C7-T1: No significant spinal stenosis or exit foraminal stenosis. UPPER THORACIC: Incompletely imaged. No significant spinal stenosis or exit foraminal stenosis. OTHER: No other significant finding. IMPRESSION: Mild cervical spondylosis. No dominant level. No worrisome bone lesions. TECHNICAL DOCUMENTATION: JOB ID: [id number] [employer]- All Rights Reserved Reading location - IP/workstation name: [email or web address]
--- NOTE | 2018-07-29 16:43 | ER Document Report ---
Doctor's Note Notes: 07/29/18 16:42 The patient was signed out to me at shift change. I went to go see the patient he was an MRI. The patient return for MRI and then wanted to sign out AGAINST MEDICAL ADVICE. Depsera he had come in taken off his ankle bracelet. He was ready to leave. I explained to him that he should wait for his MRI so that we can try to find the etiology of his issue. He verbalized understanding but signed out AMA anyway understanding the risks. Cervical Spine MRI 07/29/18 00:00 IMPRESSION: Mild cervical spondylosis. No dominant level. No worrisome bone lesions. Head CT 07/29/18 09:47 IMPRESSION: NORMAL BRAIN CT WITHOUT CONTRAST. EVIDENCE OF ACUTE STROKE: NO. His MRI was negative. There was nothing other than chronic stuff present. The patient had already left but with a fairly benign MRI I see no need to call him back he has a follow-up with neurology the first week of August.
== END 2018-07-29 15:26 | disposition left against medical advice (07) ==
LOC: ER 09:25
DX: R53.1 Weakness (principal); F17.210 Nicotine dependence, cigarettes, uncomplicated; E78.00 Pure hypercholesterolemia, unspecified; I10 Essential (primary) hypertension; J44.9 Chronic obstructive pulmonary disease, unspecified; G89.29 Other chronic pain; M54.5 Low back pain; Z90.49 Acquired absence of other specified parts of digestive tract; Z87.442 Personal history of urinary calculi
CPT/HCPCS: 36415; 70450; 72141; 80053; 81001; 85025; 99285

== ENCOUNTER → 2018-09-26 | Outpatient (CLI) | payer MEDICAID ==
[2018-09-26 11:50] LABS: HEMATOCRIT 42.4 % (37.9-51.0); HEMOGLOBIN 14.4 g/dL (13.5-17.0); MEAN CORPUSCULAR HEMOGLOBIN 30.5 pg (27.0-33.4); MEAN CORPUSCULAR VOLUME 90 fl (80-97); PLATELET COUNT 287 10^3/uL (150-450); RED BLOOD COUNT 4.73 10^6/uL (4.35-5.55); RED CELL DISTRIBUTION WIDTH 14.9 % (11.5-14.0)
== END ==
LOC: OD 10:44
PROVIDERS: ATTEND Specialist
DX: G61.0 Guillain-Barre syndrome (principal)
CPT/HCPCS: 36415; 85027

== ENCOUNTER 2018-09-27 07:32 | Day surgery (SDC) | payer MEDICAID ==
[2018-09-27 09:54] LABS: INTERNATIONAL RATION (INR) 0.98
[2018-09-27 09:55] LABS: PARTIAL THROMBOPLASTIN TIME 26.3 SEC (23.5-35.8)
[2018-09-27 11:43] LABS: GLUCOSE,CSF 61 mg/dL (40-70); PROTEIN,CSF 51 mg/dL (12-60)
--- NOTE | 2018-09-27 11:44 | RADIOLOGY REPORT (SQ) ---
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 FLUOROSCOPY TIME: 0.13 minutes 1 images saved to PACS. TECHNIQUE: Fluoroscopic guided lumbar puncture. LIMITATIONS: None. PROCEDURE: After written consent and assessment were obtained, the patient was brought into the fluo roscopy room and placed prone on the table. The patient's lower back was prepped in a sterile fashio n and an entry site was selected under live fluoroscopic guidance. The entry site was anesthetized wi th 1% lidocaine. A 20 gauge needle was advanced through the skin and into the thecal sac at the level of L3-L4. Opening pressure of 36 water units was obtained. Closing pressure of 20 water units was obtained. After approximately 25.5 ml was drained, the needle was removed and a sterile bandage was placed of the site. Specimens were sent to the lab for testing. A fluoroscopic spot image was saved to PACS confirming level access. FINDINGS: Clear CSF IMPRESSION: Lumbar puncture under fluoroscopy. No immediate complication. COMMENT: Patient medication list reviewed: Yes- Quality ID# [id number]:Eligible professional attests to doc umenting in the medical record they obtained, updated, or reviewed the patient's current medications. . Quality ID 145: Final reports for procedures using fluoroscopy that document radiation exposure toño hari, or exposure time and number of fluorographic images (if radiation exposure indices are not avail able) TECHNICAL DOCUMENTATION: JOB ID: [id number] [employer]- All Rights Reserved Reading location - IP/workstation name: [email or web address]
[2018-09-27 11:52] LABS: APPEARANCE ALL TUBES CLEAR; COLOR ALL TUBES COLORLESS; CSF TOTAL VOLUME 20.5 CC; CSF TUBE NUMBER 3; VOLUME TUBE 4 5.5 CC
[2018-09-27 11:54] LABS: RED BLOOD CELL,CSF 0 /uL (0-10)
[2018-09-27 11:55] LABS: WHITE BLOOD CELL,CSF 0 /uL (0-5)
[2018-09-27 12:20] VITALS: BP 134/78
== END 2018-09-27 12:15 | disposition home or self-care (01) ==
LOC: RAD 07:32
PROVIDERS: ATTEND Specialist
DX: G61.0 Guillain-Barre syndrome (principal); G35 Multiple sclerosis
CPT/HCPCS: 36415; 62270; 77003; 82784; 82945; 83916; 84157; 85610; 85730; 87070; 87205; 89050

== ENCOUNTER 2018-11-06 18:54 | Emergency (ER) | payer MEDICAID ==
[2018-11-06] MEDS ORDERED: KETOROLAC TROMETHAMINE INJ/PF 30 MG/1 ML SDV IV ONE (19:13)
[2018-11-06 19:47] LABS: ABSOLUTE BASOPHILS # (AUTO) 0.1 10^3/uL (0.0-0.2); ABSOLUTE EOSINOPHILS # (AUTO) 0.1 10^3/uL (0.0-0.6); ABSOLUTE LYMPHOCYTES (AUTO) 2.7 10^3/uL (0.5-4.7); ABSOLUTE MONOCYTES (AUTO) 0.5 10^3/uL (0.1-1.4); ABSOLUTE NEUT (AUTO) 4.9 10^3/uL (1.7-8.2); BASOPHILS % (AUTO) 0.7 % (0-2); EOSINOPHILS % (AUTO) 1.2 % (0-6); HEMATOCRIT 44.9 % (37.9-51.0); HEMOGLOBIN 15.2 g/dL (13.5-17.0); LYMPHOCYTES % (AUTO) 32.5 % (13-45); MEAN CORPUSCULAR HEMOGLOBIN 30.1 pg (27.0-33.4); MEAN CORPUSCULAR HGB CONC 33.7 g/dL (32.0-36.0); MEAN CORPUSCULAR VOLUME 89 fl (80-97); MONOCYTES % (AUTO) 6.3 % (3-13); PLATELET COUNT 257 10^3/uL (150-450); RED BLOOD COUNT 5.04 10^6/uL (4.35-5.55); RED CELL DISTRIBUTION WIDTH 15.6 % (11.5-14.0); SEGMENTED NEUTROPHILS % (AUTO) 59.3 % (42-78); TOTAL CELLS COUNTED % (AUTO) 100 %; WHITE BLOOD COUNT 8.3 10^3/uL (4.0-10.5)
[2018-11-06 20:04] LABS: ALBUMIN 5.2 g/dL (3.5-5.0); ALCOHOL 161 mg/dL (NONE DETECTED); ALKALINE PHOSPHATASE 65 U/L (38-126); ANION GAP 17 (5-19); ASPARTATE AMINO TRANSFERASE 46 U/L (17-59); BILIRUBIN,DIRECT 0.2 mg/dL (0.0-0.4); BILIRUBIN,TOTAL 0.6 mg/dL (0.2-1.3); BLOOD UREA NITROGEN 22 mg/dL (7-20); CALCIUM 10.1 mg/dL (8.4-10.2); CARBON DIOXIDE 19 mmol/L (22-30); CHLORIDE 105 mmol/L (98-107); CREATINE KINASE 753 U/L (55-170); GLUCOSE 80 mg/dL (75-110); TOTAL PROTEIN 8.3 g/dL (6.3-8.2)
[2018-11-06 20:48] VITALS: BP 125/72
--- NOTE | 2018-11-06 20:53 | RADIOLOGY REPORT (SQ) ---
EXAM DESCRIPTION: CT HEAD WITHOUT INTRAVENOUS CONTRAST CLINICAL HISTORY: Trauma COMPARISON: CT from 07/29/2018.. TECHNIQUE: CT of the head was performed without intravenous contrast .This exam was performed according to our departmental dose-optimization program, which includes automated exposure control, adjustment of the mA and/or KV according to the patient's size and/or use of iterative reconstruction technique. FINDINGS: There is no intracranial hemorrhage, midline shift, mass effect or acute focal infarct. There is good lowe/white matter differentiation. The ventricular system is normal. Visualized mastoid air cells without acute findings. The paranasal sinuses without acute findings. There is no visualization of calvarial or skull base fractures. IMPRESSION: There are no acute intracranial findings.
--- NOTE | 2018-11-06 20:55 | RADIOLOGY REPORT (SQ) ---
EXAM DESCRIPTION: CT CERVICAL SPINE WITHOUT IV CONTRAST COMPLETED DATE/TME: 11/06/2018 19:07 CLINICAL HISTORY: 53 years Male fall/pain COMPARISON: 07/29/2018 TECHNIQUE: Contiguous axial images obtained through the cervical spine without IV contrast. Coronal and sagittal reformatted images obtained. This exam was performed according to our department optimization program which includes automated exposure control, adjustment of the mA and/or kv according to patient size and/or use of iterative reconstruction technique. FINDINGS: Vertebral body alignment is unremarkable. No acute fractures. C5-6 C6-7 there is mild generalized bulging of the disc with mild narrowing of the neural foramina bilaterally. IMPRESSION: No acute cervical spinal fracture is identified.
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
== END 2018-11-06 21:29 | disposition home or self-care (01) ==
LOC: ER 18:54
DX: S39.012A Strain of muscle, fascia and tendon of lower back, initial encounter (principal); M54.6 Pain in thoracic spine; R42 Dizziness and giddiness; W19.XXXA Unspecified fall, initial encounter; F10.929 Alcohol use, unspecified with intoxication, unspecified; F17.200 Nicotine dependence, unspecified, uncomplicated; E78.00 Pure hypercholesterolemia, unspecified; I10 Essential (primary) hypertension; Z87.442 Personal history of urinary calculi; Z90.49 Acquired absence of other specified parts of digestive tract
CPT/HCPCS: 36415; 70450; 72125; 80053; 80307; 82550; 85025; 99285

== ENCOUNTER 2018-11-12 15:24 | Emergency (ER) | payer MEDICAID ==
--- NOTE | 2018-11-12 15:40 | ER Document Report ---
ED Medical Screen (RME) - General Chief Complaint: Near Syncope Stated Complaint: FALL/HEAD INJURY Time Seen by Provider: 11/12/18 15:31 Primary Care Provider: STEPHEN DELGADO PA-C [Primary Care Provider] - Follow up as needed Mode of Arrival: Medic Information source: Patient Notes: 53-year-old male presented to ED for complaint of severe dizziness causing him to fall hitting his head on the table causing a 3 cm laceration to the top of the scalp. He denies being on any blood thinners. I have reviewed history with patient and he agrees with what is in the chart. He states he does smoke a pack a day drinks every 2 to 3 months. He states he had a problem with loss of sensation and weakness to his lower extremities and dizziness and falling for about 6 months. He states he has had multiple surgeries to his left leg and his gallbladder removed as well as an umbilical hernia. Patient is alert oriented respirations regular and unlabored and speaking in full sentences at this time. I have greeted and performed a rapid initial assessment of this patient. A comprehensive ED assessment and evaluation of the patient, analysis of test results and completion of medical decision making process will be conducted by an additional ED providers. TRAVEL OUTSIDE OF THE [place] IN LAST 30 DAYS: No - Related Data Allergies/Adverse Reactions: Iodinated Contrast Media [Iodinated Contrast- Oral and IV Dye] Allergy (Verified 09/27/18 08:45) Past Medical History - Past Medical History Cardiac Medical History: Reports: Hx Hypercholesterolemia, Hx Hypertension Pulmonary Medical History: Reports: Hx Bronchitis - hx of, Hx COPD - inhalers, Hx Sleep Apnea, Hx Tuberculosis - 2 years ago exposure EENT Medical History: Reports: None Neurological Medical History: Reports: None Endocrine Medical History: Reports: None Renal/ Medical History: Reports: Hx Kidney Stones Malignancy Medical History: Reports None GI Medical History: Reports: Hx Gastroesophageal Reflux Disease, Hx Hiatal Hernia, Hx Pancreatitis - ETOH Musculoskeltal Medical History: Reports Hx Arthritis - mild, Reports Hx Musculoskeletal Deformity, Reports Hx Musculoskeletal Trauma Psychiatric Medical History: Reports: Hx Anxiety, Hx Bipolar Disorder, Hx Depression Infectious Medical History: Denies: Hx Hepatitis Past Surgical History: Reports: Hx Cholecystectomy, Hx Orthopedic Surgery - Injured left leg, Hx Pancreatic Surgery, Hx Umbilical Hernia - Immunizations Hx Diphtheria, Pertussis, Tetanus Vaccination: No - 11/12/18 Doctor's Discharge - Discharge Referrals: STEPHEN DELGADO PA-C [Primary Care Provider] - Follow up as needed
[2018-11-12 16:06] LABS: ABSOLUTE BASOPHILS # (AUTO) 0.1 10^3/uL (0.0-0.2); ABSOLUTE EOSINOPHILS # (AUTO) 0.2 10^3/uL (0.0-0.6); ABSOLUTE LYMPHOCYTES (AUTO) 2.2 10^3/uL (0.5-4.7); ABSOLUTE MONOCYTES (AUTO) 0.7 10^3/uL (0.1-1.4); ABSOLUTE NEUT (AUTO) 5.6 10^3/uL (1.7-8.2); BASOPHILS % (AUTO) 0.7 % (0-2); EOSINOPHILS % (AUTO) 1.8 % (0-6); HEMOGLOBIN 14.3 g/dL (13.5-17.0); LYMPHOCYTES % (AUTO) 25.1 % (13-45); MEAN CORPUSCULAR HEMOGLOBIN 30.5 pg (27.0-33.4); MEAN CORPUSCULAR HGB CONC 33.9 g/dL (32.0-36.0); MEAN CORPUSCULAR VOLUME 90 fl (80-97); MONOCYTES % (AUTO) 8.4 % (3-13); PLATELET COUNT 285 10^3/uL (150-450); RED BLOOD COUNT 4.68 10^6/uL (4.35-5.55); RED CELL DISTRIBUTION WIDTH 15.4 % (11.5-14.0); TOTAL CELLS COUNTED % (AUTO) 100 %; WHITE BLOOD COUNT 8.8 10^3/uL (4.0-10.5)
[2018-11-12 16:24] LABS: ALBUMIN 4.6 g/dL (3.5-5.0); ALKALINE PHOSPHATASE 58 U/L (38-126); ANION GAP 14 (5-19); ASPARTATE AMINO TRANSFERASE 33 U/L (17-59); BILIRUBIN,DIRECT 0.2 mg/dL (0.0-0.4); BILIRUBIN,TOTAL 0.3 mg/dL (0.2-1.3); BLOOD UREA NITROGEN 12 mg/dL (7-20); CALCIUM 10.2 mg/dL (8.4-10.2); CARBON DIOXIDE 21 mmol/L (22-30); CHLORIDE 103 mmol/L (98-107); CREATINE KINASE 375 U/L (55-170); GLUCOSE 92 mg/dL (75-110); TOTAL PROTEIN 7.3 g/dL (6.3-8.2)
[2018-11-12 16:35] LABS: CREATINE KINASE MB 2.79 ng/mL (<4.55); TROPONIN I < 0.012 ng/mL
--- NOTE | 2018-11-12 16:41 | RADIOLOGY REPORT (SQ) ---
EXAM DESCRIPTION: CT HEAD WITHOUT COMPLETED DATE/TIME: 11/12/2018 4:20 pm REASON FOR STUDY: dizziness caused fall head injury COMPARISON: 11/06/2018 TECHNIQUE: Axial images acquired through the brain without intravenous contrast. Images reviewed wit h bone, brain and subdural windows. Images stored on PACS. All CT scanners at this facility use dose modulation, iterative reconstruction, and/or weight based d osing when appropriate to reduce radiation dose to as low as reasonably achievable (ALARA). [facility]: Dose Right [facility]: CareDose [facility]: Dose Right [facility]: Teradose 4D [facility]: Smart [employer] RADIATION DOSE: CT Rad equipment meets quality standard of care and radiation dose reduction techniq ues were employed. CTDIvol: 53.2 mGy. DLP: 964 mGy-cm.. LIMITATIONS: None. FINDINGS: VENTRICLES: Normal size and contour. CEREBRUM: No masses. No hemorrhage. No midline shift. Age appropriate white matter. No evidence for a cute infarction. CEREBELLUM: No masses. No hemorrhage. No alteration of density. No evidence for acute infarction. EXTRA-AXIAL SPACES: No fluid collections. ORBITS AND GLOBE: No intra- or extraconal masses. Normal contour of globe without masses. CALVARIUM: No fracture. PARANASAL SINUSES: No fluid or mucosal thickening. SOFT TISSUES: No mass or hematoma. OTHER: No other significant finding. IMPRESSION: NO ACUTE INTRACRANIAL FINDINGS. EVIDENCE OF ACUTE STROKE: NO. TECHNICAL DOCUMENTATION: JOB ID: [id number] Quality ID # [id number]: Final reports with documentation of one or more dose reduction techniques (e.g., Au tomated exposure control, adjustment of the mA and/or kV according to patient size, use of iterative reconstruction technique) 2010 [employer]- All Rights Reserved Reading location - IP/workstation name: [email or web address]
[2018-11-12] MEDS ORDERED: MECLIZINE HCL 25 MG TABLET PO ONE (16:42)
[2018-11-12] MEDS ORDERED: LIDOCAINE 1%/EPINEPHRINE INJ 20 ML VIAL INJ ONE (16:51)
--- NOTE | 2018-11-12 16:53 | ER Document Report ---
ED General - General Chief Complaint: Near Syncope Stated Complaint: FALL/HEAD INJURY Time Seen by Provider: 11/12/18 15:31 Primary Care Provider: STEPHEN DELGADO PA-C [Primary Care Provider] - Follow up as needed Mode of Arrival: Medic TRAVEL OUTSIDE OF THE [place] IN LAST 30 DAYS: No - HPI Notes: Patient is a 53-year-old male with a history of chronic bilateral muscle weakness and numbness/tingling to his extremities (under care of neurology), frequent falls, hypertension, COPD who presents complaining of laceration to the posterior superior scalp status post injury when he fell at home prior to arrival. Patient states that his legs gave out on him and he fell backwards hitting a table that did not break or shatter. Patient states that he does have some pain in his head where the laceration is as well as pain in his neck. He otherwise feels at baseline otherwise. Patient states that he falls almost every day because of the weakness issues and this was not uncommon for him. Contrary to triage note, patient states that he is not dizzy. He is not on any blood thinning medications. He did not lose consciousness. He does have a follow-up appointment with his neurologist scheduled in a couple weeks. Denies any fever, changes in vision/speech/mentation/hearing, URI, sore throat, chest pain, palpitations, syncope, cough, shortness of breath, wheeze, dyspnea, abdominal pain, nausea/vomiting/diarrhea, urinary retention, dysuria, hematuria, loss of control of bowel or bladder, saddle anesthesia, muscle paralysis, or rash. Unknown last tetanus. - Related Data Allergies/Adverse Reactions: Iodinated Contrast Media [Iodinated Contrast- Oral and IV Dye] Allergy (Verified 09/27/18 08:45) Past Medical History - General Information source: Patient - Social History Smoking Status: Unknown if Ever Smoked Chew tobacco use (# tins/day): No Frequency of alcohol use: Heavy Drug Abuse: None Family History: Reviewed & Not Pertinent, CAD Patient has suicidal ideation: No Patient has homicidal ideation: No - Past Medical History Cardiac Medical History: Reports: Hx Hypercholesterolemia, Hx Hypertension Pulmonary Medical History: Reports: Hx Bronchitis - hx of, Hx COPD - inhalers, Hx Sleep Apnea, Hx Tuberculosis - 2 years ago exposure EENT Medical History: Reports: None Neurological Medical History: Reports: None Endocrine Medical History: Reports: None Renal/ Medical History: Reports: Hx Kidney Stones Malignancy Medical History: Reports None GI Medical History: Reports: Hx Gastroesophageal Reflux Disease, Hx Hiatal Hernia, Hx Pancreatitis - ETOH. Denies: Hx Hepatitis Musculoskeletal Medical History: Reports Hx Arthritis - mild, Reports Hx Musculoskeletal Deformity, Reports Hx Musculoskeletal Trauma Psychiatric Medical History: Reports: Hx Anxiety, Hx Bipolar Disorder, Hx Depression Infectious Medical History: Denies: Hx Hepatitis Past Surgical History: Reports: Hx Cholecystectomy, Hx Orthopedic Surgery - Injured left leg, Hx Pancreatic Surgery, Hx Umbilical Hernia - Immunizations Hx Diphtheria, Pertussis, Tetanus Vaccination: No - 11/12/18 Review of Systems - Review of Systems -: Yes All other systems reviewed and negative Physical Exam - Vital signs Vitals: Resp Pulse Ox 18 93 11/12/18 16:37 11/12/18 16:37 - Notes Notes: PHYSICAL EXAMINATION: accompanied by female nurse GENERAL: Well-appearing, well-nourished and in no acute distress. A&Ox4. Answers questions appropriately. HEAD: there is a 3.5cm linear superficial laceration with mild swelling noted superior posterior occiput without active bleeding currently. No schwarz sign. EYES: Pupils equal round and reactive to light, extraocular movements intact, sclera anicteric, conjunctiva are normal. No raccoon eyes/entrapment ENT: EAC clear b/l. TM's intact b/l without erythema, fluid, or perforation. Nares patent and without discharge. oropharynx clear without exudates. No tonsilar hypertrophy or erythema. Moist mucous membranes. No sinus tenderness. No hemotympanum/CSF discharge. NECK: + midline tenderness noted. Chest: No flail chest. equal rise/fall. Non-tender LUNGS: Breath sounds clear to auscultation bilaterally and equal. No wheezes rales or rhonchi. HEART: Regular rate and rhythm without murmurs, rubs, gallops. ABDOMEN: Soft, nontender, nondistended abdomen. No guarding, no rebound. Normal bowel sounds present. No CVA tenderness bilaterally. Musculoskeletal: Ext b/l: FROM to passive/active. Strength 4+/5 b/l. No other deficits noted aside from dec sensation to hands/feet b/l (baseline per pt/mom). No bony tenderness of extremities. Pelvis stable. Back: FROM to passive/active. Strength 5+/5. No vertebral point tenderness, stepoffs, or deformities. No other bony tenderness or ecchymosis. Extremities: No cyanosis, clubbing, or edema b/l. Peripheral pulses 2+. Capillary refill less than 2 seconds. NEUROLOGICAL: GCS 15. Cranial nerves grossly intact. Normal speech. Normal sensory, motor exams. Reflexes 2+ b/l. ELISABETH's negative. PSYCH: Normal mood, normal affect. SKIN: see above Course - Re-evaluation Re-evalutation: 11/12/18 18:36 Patient is an afebrile, well-hydrated, 53-year-old male who presents with a scalp laceration and head injury/neck pain status post fall. Vitals are acceptable without significant tachycardia, tachypnea, or hypoxia. PE is othe rwise unremarkable for any focal neurological deficits, neurovascular compromise, obvious tendon/leg rupture, obvious fracture/dislocation. CT scan of the head and neck were unremarkable. Tetanus was updated today. Wound was thoroughly irrigated and cleansed. Wound edges approximated appropriately utilizing 6 simple interrupted sutures. Wound dressing was placed and wound instructions reviewed. Sutures will need removed in 7 to 9 days. Patient is otherwise nontoxic-appearing and is tolerating p.o. without difficulty. Patient is at baseline and without any chest pain, shortness breath, or dyspnea on exertion. Labs unremarkable. Patient has reaffirmed that falls are not uncommon for him as this occurs almost daily and is under the care of neurology for this issue. Low suspicion for any ACS, PE, acute glaucoma, temporal arteritis, meningitis, intracranial hemorrhage, ischemic stroke, or fracture at this time. Patient is aware that his condition can change from initial present ation and that he needs to monitor symptoms closely for any acute changes. Recheck with your PCM in 2 to 3 days. Keep appointment with neurology. Return to the ED with any other worsening/concerning symptoms. Patient is in agreement. - Vital Signs Vital signs: Temp Pulse Resp BP Pulse Ox 97.4 F 62 19 126/77 H 93 11/12/18 16:42 11/12/18 16:40 11/12/18 18:01 11/12/18 18:01 11/12/18 18:01 - Laboratory Result Diagrams: 11/12/18 15:50 11/12/18 15:50 Laboratory results interpreted by me: 11/12/18 11/12/18 15:50 15:50 RDW 15.4 H Carbon Dioxide 21 L Creatine Kinase 375 H Procedures - Laceration/Wound Repair Scalp Wound length (cm): 3.5 Wound's Depth, Shape: Superficial, Linear Laceration pre-procedure: Sterile PPE donned, Sterile drapes applied, Other - chlorhexadine/saline Anesthetic type: 1% Lidocaine w/epi Volume Anesthetic (mLs): 5 Wound explored: Clean, No foreign body removed Irrigated w/ Saline (mLs): 220 Wound Debrided: Minimal Wound Repaired With: Sutures Suture Size/Type: 4:0, Nylon Number of Sutures: 6 Layer Closure?: No Post-procedure wound care: Sterile dressing applied Post-procedure NV exam normal: Yes Complications: No Discharge - Discharge Clinical Impression: Neck pain Laceration of scalp Qualifiers: Encounter type: initial encounter Qualified Code(s): S01.01XA - Laceration without foreign body of scalp, initial encounter Head injury Qualifiers: Encounter type: initial encounter Qualified Code(s): S09.90XA - Unspecified injury of head, initial encounter Condition: Stable Disposition: HOME, SELF-CARE Instructions: Soap Cleansing ([facility]), Antibiotic Ointment Protection ([facility]), Head Injury Precautions ([facility]) Additional Instructions: Do not shower or bathe for 24 hours. After 24 hours you may shower but no submersion of the wound under water. Keep the original dressing on the wound for 24 hours unless the drainage soaks through. Change the dressing daily thereafter and keep the knots of the suture material clean from any dried discharge. You may leave the wound open to the air once there is no more discharge. See your PCM in 2-3 days for a recheck. Monitor for any signs of worsening pain or redness, purulent drainage, streaks, and/or fever. Return to the ED if noticing any of the above symptoms or as needed. Take medications as directed. Your sutures will need to be removed in 7-9 days. Keep appointment with Neurology. Return to the ED with any worsening symptoms and/or development of fever, headache, changes in behavior/mentation/vision/speech, chest pain, palpitations, syncope, shortness of breath, trouble breathing, abdominal pain, n/v/d, blood in stool/urine, loss of control of bowel/bladder, urinary retention, muscle weakness/paralysis, saddle anesthesia, new numbness/tingling, or other worsening symptoms that are concerning to you. Prescriptions: Naproxen 500 mg PO BID #10 tablet Forms: Elevated Blood Pressure Referrals: STEPHEN DELGADO PA-C [Primary Care Provider] - 11/14/18
[2018-11-12] MEDS ORDERED: DIPH/PERTUSS(ACELL)/TETANUS VAC/PF 0.5 ML SYR (>=10YO) IM ONE (16:57)
--- NOTE | 2018-11-12 18:10 | RADIOLOGY REPORT (SQ) ---
EXAM DESCRIPTION: CT CERVICAL SPINE WITHOUT COMPLETED DATE/TIME: 11/12/2018 5:30 pm REASON FOR STUDY: pain s/p fall COMPARISON: CT cervical spine 11/06/2018, 09/16/2013. TECHNIQUE: Axial images acquired through the cervical spine without intravenous contrast. Images re viewed with lung, soft tissue and bone windows. Reconstructed coronal and sagittal MPR images review ed. Images stored on PACS. All CT scanners at this facility use dose modulation, iterative reconstruction, and/or weight based d osing when appropriate to reduce radiation dose to as low as reasonably achievable (ALARA). [facility]: Dose Right [facility]: CareDose [facility]: Dose Right [facility]: Teradose 4D [facility]: [employer] RADIATION DOSE: CT Rad equipment meets quality standard of care and radiation dose reduction techniq ues were employed. CTDIvol: 23.6 mGy. DLP: 503 mGy-cm. mGy. LIMITATIONS: None. FINDINGS: ALIGNMENT: Anatomic. MINERALIZATION: Normal. VERTEBRAL BODIES: No acute fractures or dislocation. DISCS: Mild degenerative disc disease at C4-C5, C5-C6 and C6-C7. FACETS, LATERAL MASSES, POSTERIOR ELEMENTS: No fractures. No dislocation. HARDWARE: None in the spine. VISUALIZED RIBS: No fractures. LUNG APICES AND SOFT TISSUES: No acute findings. IMPRESSION: No acute fracture at the cervical spine. Degenerative changes. TECHNICAL DOCUMENTATION: JOB ID: [id number] NM-64 Quality ID # 436: Final reports with documentation of one or more dose reduction techniques (e.g., Au tomated exposure control, adjustment of the mA and/or kV according to patient size, use of iterative reconstruction technique) 2010 [employer]- All Rights Reserved Reading location - IP/workstation name: [email or web address]
[2018-11-12 19:11] VITALS: BP 127/81
--- NOTE | 2018-11-12 22:42 | EKG REPORT ---
SEVERITY:- NORMAL ECG - SINUS RHYTHM : Confirmed by: Carly Spain MD 12-Nov-2018 22:41:59
== END 2018-11-12 19:11 | disposition home or self-care (01) ==
LOC: ER 15:24
DX: S01.01XA Laceration without foreign body of scalp, initial encounter (principal); S09.90XA Unspecified injury of head, initial encounter; M54.2 Cervicalgia; R55 Syncope and collapse; W19.XXXA Unspecified fall, initial encounter; Z91.81 History of falling; Y92.009 Unspecified place in unspecified non-institutional (private) residence as the place of occurrence of the external cause; Z23 Encounter for immunization; E78.00 Pure hypercholesterolemia, unspecified; I10 Essential (primary) hypertension; J44.9 Chronic obstructive pulmonary disease, unspecified; Z87.442 Personal history of urinary calculi; Z90.49 Acquired absence of other specified parts of digestive tract
CPT/HCPCS: 93005; 99284; 90471; 36415; 82553; 82550; 83690; 85025; 80053; 84484; 70450; 72125; 90715; 93010; 12002; L0120; J3490

== ENCOUNTER 2019-01-09 19:36 | Emergency (ER) | payer MEDICAID ==
[2019-01-09 19:43] VITALS: BP 122/80
--- NOTE | 2019-01-09 21:11 | ER Document Report ---
ED General - General Chief Complaint: Fall Injury Stated Complaint: FALL,RIGHT RIB PAIN Time Seen by Provider: 01/09/19 20:35 Primary Care Provider: STEPHEN DELGADO PA-C [Primary Care Provider] - Follow up as needed TRAVEL OUTSIDE OF THE [place] IN LAST 30 DAYS: No - HPI Notes: Patient is a 53-year-old male with a long-standing history of alcohol dependence and abuse, who presents to the emergency department for evaluation after a fall. He states that his body "just gave out." He claims that he is seeing neurology, both here and in [place], and there is some concern for ALS. The patient states he was walking, struck his left chest, and fell to the ground. He did hit his head. He states he was "nearly" knocked unconscious. He complains of pain in his head, his left chest. He describes it as sharp and stabbing, rates it a 9 out of 10. He denies any associated visual changes. No nausea or vomiting. States he is speaking and swallowing without difficulty. He denies drinking any alcohol today, states he stopped drinking. - Related Data Allergies/Adverse Reactions: Iodinated Contrast Media [Iodinated Contrast- Oral and IV Dye] Allergy (Verified 09/27/18 08:45) Home Medications: List reviewed, please see summary Past Medical History - General Information source: Patient - Social History Smoking Status: Never Smoker Frequency of alcohol use: Heavy Family History: Reviewed & Not Pertinent, CAD Patient has suicidal ideation: No Patient has homicidal ideation: No - Past Medical History Cardiac Medical History: Reports: Hx Hypercholesterolemia, Hx Hypertension Pulmonary Medical History: Reports: Hx Bronchitis - hx of, Hx COPD - inhalers, Hx Sleep Apnea, Hx Tuberculosis - 2 years ago exposure Renal/ Medical History: Reports: Hx Kidney Stones GI Medical History: Reports: Hx Gastroesophageal Reflux Disease, Hx Hiatal Hernia, Hx Pancreatitis - ETOH. Denies: Hx Hepatitis Musculoskeletal Medical History: Reports Hx Arthritis - mild, Reports Hx Musculoskeletal Deformity, Reports Hx Musculoskeletal Trauma Psychiatric Medical History: Reports: Hx Anxiety, Hx Bipolar Disorder, Hx Depression Infectious Medical History: Denies: Hx Hepatitis Past Surgical History: Reports: Hx Cholecystectomy, Hx Orthopedic Surgery - Injured left leg, Hx Pancreatic Surgery, Hx Umbilical Hernia - Immunizations Hx Diphtheria, Pertussis, Tetanus Vaccination: No - 11/12/18 Review of Systems - Review of Systems Constitutional: No symptoms reported EENT: No symptoms reported Cardiovascular: No symptoms reported Respiratory: No symptoms reported Gastrointestinal: No symptoms reported Genitourinary: No symptoms reported Musculoskeletal: See HPI Skin: No symptoms reported Neurological/Psychological: No symptoms reported Physical Exam - Vital signs Vitals: Temp Pulse Resp BP Pulse Ox 97.9 F 73 18 122/80 96 01/09/19 19:42 01/09/19 19:42 01/09/19 19:42 01/09/19 19:42 01/09/19 19:42 - Notes Notes: This is a 53-year-old male who appears older than his stated age, in no acute distress. Vital signs reviewed, please refer to chart. No clear signs of facial trauma. Head is normocephalic, atraumatic. Pupils equal round, reactive to light. Neck is supple without meningismus. Heart is regular rate and rhythm. Lungs are clear to auscultation bilaterally. Examination of the chest wall yields no clear sign of deformity or even injury. He has some tenderness to palpation over the left inferior ribs, between the midclavicular and anterior axillary line. No corresponding subcutaneous emphysema. Chest wall excursion is equal bilaterally. Abdomen is soft, minimally tender in the left upper quadrant without rebound or guarding, normoactive bowel sounds throughout. Extremities without cyanosis, clubbing. Posterior calves are nontender. Peripheral pulses are equal. Skin is warm and dry. Patient is awake, alert, oriented x3. Cranial nerves II - XII are grossly intact without focal neurological deficits. Strength is plus 5 out of 5 bilateral upper and lower extremities. Sensation is intact. Reflexes symmetrical. Intact [id number], rapid alternating movements, [id number]. Course - Re-evaluation Re-evalutation: 01/09/19 22:02 Patient presents emergency department for evaluation after a fall. He states he fell, struck his left side of his chest over a piece of furniture, then hit his head. The patient complains of pain primarily in these areas. He is not a good historian, has a history of alcoholism, so I was inclined to be more thorough with imaging. He has CT scan of the head, neck, chest, abdomen and pelvis. These were all done without contrast secondary to his allergy. His vital signs are stable. CT scans are reviewed and found to be largely unremarkable with the exception of a questionable sternal fracture. I did go back and reevaluate the patient. He has absolutely no tenderness over the sternum. I have no suspicion for significant sternal fracture at this time. He was given a small amount of pain medication here and he will be discharged. He is to return to the ED with worsening, otherwise follow-up with primary care. - Vital Signs Vital signs: Temp Pulse Resp BP Pulse Ox 97.9 F 73 18 122/80 96 01/09/19 19:50 01/09/19 19:50 01/09/19 19:50 01/09/19 19:50 01/09/19 19:50 - Diagnostic Test Radiology reviewed: Image reviewed, Reports reviewed Radiology results interpreted by me: 01/09/19 22:03 Abdomen/Pelvis CT 01/09/19 20:43 IMPRESSION: 1. Query nondisplaced sternal fracture. Correlate for point tenderness. 2. No evidence of solid or hollow viscus injury. Cervical Spine CT 01/09/19 20:44 IMPRESSION: No acute fracture or malalignment. TECHNICAL DOCUMENTATION: Quality ID # 436: Final reports with documentation of one or more dose reduction techniques (e.g., Automated exposure control, adjustment of the mA and/or kV according to patient size, use of iterative reconstruction technique) copyright 2011 [employer]- All Rights Reserved Chest CT 01/09/19 20:44 IMPRESSION: 1. Query nondisplaced sternal fracture. Correlate for point tenderness. 2. No evidence of solid or hollow viscus injury. Head CT 01/09/19 20:44 IMPRESSION: No acute intracranial findings. Discharge - Discharge Clinical Impression: Fall Head injury Qualifiers: Encounter type: initial encounter Qualified Code(s): S09.90XA - Unspecified injury of head, initial encounter Chest wall contusion Qualifiers: Encounter type: initial encounter Laterality: left Qualified Code(s): S20.212A - Contusion of left front wall of thorax, initial encounter Condition: Stable Disposition: HOME, SELF-CARE Instructions: Rib Contusion ([facility]), Head Injury Precautions ([facility]) Additional Instructions: Be sure to take deep breaths. Practice incentive spirometry as instructed. Follow-up with your primary care physician this week. Take your regular pain medications as prescribed as needed for pain. If you develop visual changes, vomiting, dizziness, shortness of breath, or any other new or concerning symptoms, please return immediately to the emergency department for reevaluation. Referrals: STEPHEN DELGADO PA-C [Primary Care Provider] - Follow up as needed
--- NOTE | 2019-01-09 21:48 | RADIOLOGY REPORT (SQ) ---
EXAM DESCRIPTION: CT CERVICAL SPINE WITHOUT IV CONTRAST COMPLETED DATE/TME: 01/09/2019 20:44 CLINICAL HISTORY: 53 years, Male, fall COMPARISON: Prior study from 11/12/2018 TECHNIQUE: Noncontrast CT of the cervical spine was acquired. Coronal and sagittal reformations were created. Images stored on PACS. All CT scanners at this facility use dose modulation, iterative reconstruction, and/or weight based dosing when appropriate to reduce radiation dose to as low as reasonably achievable (ALARA). [facility]: Dose Right [facility]: CareDose [facility]: Dose Right [facility]: Teradose 4D [facility]: [employer] LIMITATIONS: None. FINDINGS: Limited evaluation of the posterior fossa structures reveals no suspicious abnormality. Occipital condyles are normal. Lateral masses of C1 and C2 align properly. Base and tip of the dens are intact. Craniocervical alignment is maintained. Cervical vertebral body heights and alignments are maintained. No acute fracture or malalignment is appreciated. Intervertebral spaces are also well maintained. Paravertebral soft tissues show no suspicious abnormality. Visualized lung apices are clear. Tiny focus of gas density located adjacent to the anterior/leftward aspect of the C5 vertebral body near the C5-C6 intervertebral disc space either indicates vacuum disc phenomenon or a small amount of gas within the uncovertebral joint. This was present on the previous exam dated 11/12/2018. IMPRESSION: No acute fracture or malalignment. TECHNICAL DOCUMENTATION: Quality ID # 436: Final reports with documentation of one or more dose reduction techniques (e.g., Automated exposure control, adjustment of the mA and/or kV according to patient size, use of iterative reconstruction technique) copyright 2011 [employer]- All Rights Reserved
--- NOTE | 2019-01-09 21:49 | RADIOLOGY REPORT (SQ) ---
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 COMPARISON: None. TECHNIQUE: CT scan of the brain without IV contrast. This exam was performed according to our departmental dose-optimization program, which includes automated exposure control, adjustment of the mA and/or kV according to patient size and/or use of iterative reconstruction technique. FINDINGS: The ventricles, cisterns, and sulci are age-appropriate. No evidence of acute infarction, intracranial hemorrhage, extra-axial fluid collection, or midline shift. No air-fluid levels are seen in the paranasal sinuses to suggest acute sinusitis. No depressed skull fracture. IMPRESSION: No acute intracranial findings.
--- NOTE | 2019-01-09 21:55 | RADIOLOGY REPORT (SQ) ---
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 COMPARISON: None. TECHNIQUE: CT scan of the chest, abdomen, and pelvis without IV contrast. This exam was performed according to our departmental dose-optimization program, which includes automated exposure control, adjustment of the mA and/or kV according to patient size and/or use of iterative reconstruction technique. FINDINGS: CHEST: The heart size is normal without pericardial effusion. The thoracic aorta is normal caliber. No mediastinal hematoma is seen. No pulmonary contusion, pleural effusion, or pneumothorax. ABDOMEN/PELVIS: There has been a prior cholecystectomy. Tiny nonobstructing stones in both kidneys. The remainder of the abdominal and pelvic solid and hollow viscus organs are grossly unremarkable without evidence of acute findings. No intraperitoneal free fluid or free air is seen. The abdominal aorta is normal caliber. MUSCULOSKELETAL: There is mild depression of the anterior cortex of the sternum suggestive of nondisplaced fracture No acute fracture of the thoracolumbar spine. The bony pelvis is intact. No rib fractures are seen. No body wall soft tissue contusion or hematoma. IMPRESSION: 1. Query nondisplaced sternal fracture. Correlate for point tenderness. 2. No evidence of solid or hollow viscus injury.
--- NOTE | 2019-01-09 21:55 | RADIOLOGY REPORT (SQ) ---
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 COMPARISON: None. TECHNIQUE: CT scan of the chest, abdomen, and pelvis without IV contrast. This exam was performed according to our departmental dose-optimization program, which includes automated exposure control, adjustment of the mA and/or kV according to patient size and/or use of iterative reconstruction technique. FINDINGS: CHEST: The heart size is normal without pericardial effusion. The thoracic aorta is normal caliber. No mediastinal hematoma is seen. No pulmonary contusion, pleural effusion, or pneumothorax. ABDOMEN/PELVIS: There has been a prior cholecystectomy. Tiny nonobstructing stones in both kidneys. The remainder of the abdominal and pelvic solid and hollow viscus organs are grossly unremarkable without evidence of acute findings. No intraperitoneal free fluid or free air is seen. The abdominal aorta is normal caliber. MUSCULOSKELETAL: There is mild depression of the anterior cortex of the sternum suggestive of nondisplaced fracture No acute fracture of the thoracolumbar spine. The bony pelvis is intact. No rib fractures are seen. No body wall soft tissue contusion or hematoma. IMPRESSION: 1. Query nondisplaced sternal fracture. Correlate for point tenderness. 2. No evidence of solid or hollow viscus injury.
[2019-01-09] MEDS ORDERED: OXYCODONE-ACETAMINOPHEN 5-325 MG TABLET PO ONE (22:01)
== END 2019-01-09 22:38 | disposition home or self-care (01) ==
LOC: ER 19:36
DX: S09.90XA Unspecified injury of head, initial encounter (principal); S20.212A Contusion of left front wall of thorax, initial encounter; R07.81 Pleurodynia; R10.812 Left upper quadrant abdominal tenderness; W01.190A Fall on same level from slipping, tripping and stumbling with subsequent striking against furniture, initial encounter; E78.00 Pure hypercholesterolemia, unspecified; F10.10 Alcohol abuse, uncomplicated; I10 Essential (primary) hypertension; Z87.442 Personal history of urinary calculi; Z90.49 Acquired absence of other specified parts of digestive tract
CPT/HCPCS: 70450; 71250; 72125; 74176; 99284

== ENCOUNTER 2019-03-17 08:29 | Inpatient (IN) | payer MEDICAID ==
[2019-03-17] MEDS ORDERED: RINGERS SOLUTION,LACTATED 1,000 ML IV ONE (08:30)
[2019-03-17 09:13] LABS: VENOUS BLOOD BASE EXCESS -0.4 mmol/L; VENOUS BLOOD HCO3 24.5 mmol/L (20-32); VENOUS BLOOD PCO2 41.2 mmHg (35-63); VENOUS BLOOD PH 7.39 (7.30-7.42)
[2019-03-17 09:27] LABS: HEMATOCRIT 38.5 % (37.9-51.0); HEMOGLOBIN 13.3 g/dL (13.5-17.0); MEAN CORPUSCULAR HEMOGLOBIN 30.1 pg (27.0-33.4); MEAN CORPUSCULAR HGB CONC 34.7 g/dL (32.0-36.0); MEAN CORPUSCULAR VOLUME 87 fl (80-97); PLATELET COUNT 361 10^3/uL (150-450); RED BLOOD COUNT 4.43 10^6/uL (4.35-5.55); RED CELL DISTRIBUTION WIDTH 15.7 % (11.5-14.0); WHITE BLOOD COUNT 14.8 10^3/uL (4.0-10.5)
[2019-03-17] MEDS ORDERED: NORMAL SALINE 1000 ML 1,000 ML IV ONE (09:30)
[2019-03-17 09:32] LABS: INTERNATIONAL RATION (INR) 1.04; PROTHROMBIN TIME 13.6 SEC (11.4-15.4)
[2019-03-17 09:38] LABS: APPEARANCE,URINE CLEAR; BILIRUBIN,URINE NEGATIVE (NEGATIVE); COLOR,URINE YELLOW; GLUCOSE, URINE NEGATIVE (NEGATIVE); KETONES,URINE NEGATIVE (NEGATIVE); PROTEIN,URINE NEGATIVE (NEGATIVE); URINE SPECIFIC GRAVITY 1.014; UROBILINOGEN,URINE NEGATIVE mg/dL (<2.0)
[2019-03-17 10:21] LABS: ABSOLUTE LYMPHOCYTES# (MANUAL) 1.2 10^3/uL (0.5-4.7); BAND NEUTROPHILS % (MANUAL) 1 % (3-5); BASOPHILS % (MANUAL) 0 % (0-2); EOSINOPHILS % (MANUAL) 0 % (0-6); LYMPHOCYTES % (MANUAL) 8 % (13-45); MONOCYTES % (MANUAL) 7 % (3-13); SEGMENTED NEUTROPHILS % (MAN) 84 % (42-78); TOTAL CELLS COUNTED 100
--- NOTE | 2019-03-17 10:22 | RADIOLOGY REPORT (SQ) ---
EXAM DESCRIPTION: CHEST SINGLE VIEW COMPLETED DATE/TIME: 03/17/2019 9:22 am REASON FOR STUDY: sepsis alert COMPARISON: 06/16/2018 TECHNIQUE: Single frontal radiographic view of the chest acquired. NUMBER OF VIEWS: One view. LIMITATIONS: None. FINDINGS: LUNGS AND PLEURA: No pneumothorax. Confluent opacity -airspace disease in the right media l lung base. No significant pleural effusion. MEDIASTINUM AND HILAR STRUCTURES: Stable. HEART AND VASCULAR STRUCTURES: Stable. BONES: No acute findings. HARDWARE: None in the chest. OTHER: No other significant finding. IMPRESSION: Confluent opacity -airspace disease in the right medial lung base. No significant pleur al effusion. TECHNICAL DOCUMENTATION: JOB ID: [id number] [place]-72 2010 [employer]- All Rights Reserved Reading location - IP/workstation name: [facility]
[2019-03-17 10:23] LABS: ANISOCYTOSIS SLIGHT; PLATELET CLUMPS PRESENT; PLATELET COMMENT ADEQUATE
[2019-03-17 10:38] LABS: ALBUMIN 3.9 g/dL (3.5-5.0); ALKALINE PHOSPHATASE 81 U/L (38-126); ANION GAP 12 (5-19); ASPARTATE AMINO TRANSFERASE 27 U/L (17-59); BILIRUBIN,TOTAL 0.4 mg/dL (0.2-1.3); BLOOD UREA NITROGEN 12 mg/dL (7-20); CALCIUM 9.4 mg/dL (8.4-10.2); CARBON DIOXIDE 22 mmol/L (22-30); CHLORIDE 104 mmol/L (98-107); CREATINE KINASE 59 U/L (55-170); GLUCOSE 120 mg/dL (75-110); POTASSIUM 4.2 mmol/L (3.6-5.0)
[2019-03-17 11:02] LABS: ALCOHOL < 10 mg/dL (NONE DETECTED)
[2019-03-17] MEDS ORDERED: LEVOFLOXACIN 750 MG/D5W RTU 750 MG/150 ML RTUPB IV ONE (11:22)
--- NOTE | 2019-03-17 12:44 | ER Document Report ---
Entered by LEONCIO MERCER SCRIBE 03/17/19 1005 Acting as scribe for:BROOKLYN WALLER MD ED General - General Chief Complaint: Altered Mental Status Stated Complaint: WEAKNESS Time Seen by Provider: 03/17/19 09:58 Information source: Patient, Relative Notes: 53 year old male presents to the emergency department via EMS with fever and overall weakness that began last night and was worse when patient woke up this morning. EMS reported that he had a fever and his lactic acid level was high. EMS gave patient antibiotics and fluids prior to arrival at ED. Patient's reports that patient could "hardly walk", "could not stand up", has a cough and sputum that is brown. He has not been vomiting. When asked about when patient's fever began, "doesn't remember the start of them". Patient's reports that patient was diagnosed with ALS 2 months ago and pneumonia 3 weeks ago. stated that she has had to help him up out of his chair more frequently lately. Patient has not had trouble with ulcers in the past. Patient uses a walker. PCP: [facility] [place] TRAVEL OUTSIDE OF THE [place] IN LAST 30 DAYS: No - Related Data Allergies/Adverse Reactions: Iodinated Contrast Media [Iodinated Contrast- Oral and IV Dye] Allergy (Verified 09/27/18 08:45) Past Medical History - General Information source: Patient, Relative - Social History Smoking Status: Former Smoker Cigarette use (# per day): No Chew tobacco use (# tins/day): No Smoking Education Provided: No Frequency of alcohol use: None Drug Abuse: None Lives with: Parents Family History: Reviewed & Not Pertinent, CAD Patient has suicidal ideation: No Patient has homicidal ideation: No - Past Medical History Cardiac Medical History: Reports: Hx Hypercholesterolemia, Hx Hypertension Pulmonary Medical History: Reports: Hx Bronchitis, Hx COPD - inhalers, Hx Sleep Apnea, Hx Tuberculosis - 2 years ago exposure Renal/ Medical History: Reports: Hx Kidney Stones GI Medical History: Reports: Hx Gastroesophageal Reflux Disease, Hx Hiatal Hernia, Hx Pancreatitis - ETOH Musculoskeletal Medical History: Reports Hx Arthritis - mild, Reports Hx Musculoskeletal Deformity, Reports Hx Musculoskeletal Trauma Psychiatric Medical History: Reports: Hx Anxiety, Hx Bipolar Disorder, Hx Depression Past Surgical History: Reports: Hx Cholecystectomy, Hx Orthopedic Surgery - Injured left leg, Hx Pancreatic Surgery, Hx Umbilical Hernia - Immunizations Hx Diphtheria, Pertussis, Tetanus Vaccination: No - 11/12/18 Review of Systems - Review of Systems Constitutional: See HPI, Fever, Weakness EENT: No symptoms reported Cardiovascular: No symptoms reported Respiratory: See HPI, Cough, Sputum Gastrointestinal: No symptoms reported Genitourinary: No symptoms reported Male Genitourinary: No symptoms reported Musculoskeletal: No symptoms reported Skin: No symptoms reported Hematologic/Lymphatic: No symptoms reported Neurological/Psychological: See HPI, Weakness -: Yes All other systems reviewed and negative Physical Exam - Vital signs Vitals: Resp 28 H 03/17/19 08:32 - Notes Notes: Physical Exam: General: Alert, Chronically ill appearing. HEENT: Normocephalic. Atraumatic. PERRL. Extraocular movements intact. Brownish residue is seen on the corner of mouth and on back of tongue. An elongated dark blood clot is attached to the palate. No injuries or areas of bleeding seen in the mouth. Neck: Supple. Non-tender. Respiratory: No respiratory distress. Rhonchi bilaterally. Cardiovascular: Regular rate and rhythm. Abdominal: Normal Inspection. Non-tender. No distension. Normal Bowel Sounds. Genitourinary: Caceres catheter is draining clear urine. Back: No gross abnormalities. Extremities: Moves all four extremities. Upper extremities: Patient has a cast on his right distal forearm and wrist. Lower extremities: Trace edema. Muscle deformity to LLE from old procedures or injury. Normal ROM. Neurological: Normal cognition. AAOx4. Normal speech. Psychological: Normal affect. Normal Mood. Skin: Hot. Dry. Normal color. Course - Vital Signs Vital signs: Temp Pulse Resp BP Pulse Ox 98.5 F 20 106/69 92 03/17/19 11:00 03/17/19 11:01 03/17/19 11:00 03/17/19 11:01 - Laboratory Result Diagrams: 03/17/19 08:50 03/17/19 10:06 Laboratory results interpreted by me: 03/17/19 03/17/19 03/17/19 08:50 08:50 10:06 WBC 14.8 H Hgb 13.3 L RDW 15.7 H Seg Neuts % (Manual) 84 H Band Neutrophils % 1 L Lymphocytes % (Manual) 8 L Abs Neuts (Manual) 12.6 H Creatinine 0.51 L Glucose 120 H Lactic Acid 2.9 H Ammonia Total Protein 6.0 L 03/17/19 10:06 WBC Hgb RDW Seg Neuts % (Manual) Band Neutrophils % Lymphocytes % (Manual) Abs Neuts (Manual) Creatinine Glucose Lactic Acid Ammonia < 8.7 L Total Protein - Diagnostic Test Radiology reviewed: Image reviewed, Reports reviewed - Chest x-ray shows right medial lung base opacity - EKG Interpretation by Me EKG shows normal: Sinus rhythm, [place], Intervals, QRS Complexes, ST-T Waves Rate: Tachycardia - 100 [place]/QRS: Right axis deviation When compared to previous EKG there are: No significant change Discharge - Discharge Clinical Impression: ALS (amyotrophic lateral sclerosis), Weakness Right lower lobe pneumonia Qualifiers: Pneumonia type: due to unspecified organism Qualified Code(s): J18.9 - Pne umonia, unspecified organism Fever Qualifiers: Fever type: unspecified Qualified Code(s): R50.9 - Fever, unspecified Leukocytosis Qualifiers: Leukocytosis type: bandemia Qualified Code(s): D72.825 - Bandemia Condition: Stable Disposition: ADMITTED INPATIENT Admitting Provider: Jamie (Hospitalist) Unit Admitted: Medical Floor Scribe Attestation: 03/17/19 12:44 I personally performed the services described in the documentation, reviewed and edited the documentation which was dictated to the scribe in my presence, and it accurately records my words and actions. I personally performed the services described in the documentation, reviewed and edited the documentation which was dictated to the scribe in my presence, and it accurately records my words and actions.
[2019-03-17] MEDS ORDERED: ACETAMINOPHEN 325 MG TABLET PO PRN (14:14)
[2019-03-17] MEDS ORDERED: IPRATROPIUM/ALBUTEROL 0.5-2.5 MG/3 ML AMPUL NEB PRN ×2 (14:14→20:21)
[2019-03-17] MEDS ORDERED: PANTOPRAZOLE SODIUM 40 MG VIAL IV ONE ×2 (14:35→14:36)
--- NOTE | 2019-03-17 15:23 | PDOC H&P ---
History of Present Illness Admission Date/PCP: 03/17/19 13:01 Patient complains of: Difficulty breathing and shortness of breath History of Present Illness: LARUENT PENG is a 53 year old male Patient presents emergency room with complaints of confusion and generalized weakness which started last night. He was apparently found to be febrile. He was noted to have a cough and sputum. He apparently was recently diagnosed with pneumonia about 2 months ago. He was given IV fluids as well as antibiotics by EMS prior to arrival in the ED. Patient was noted to be afebrile on initial arrival to the ED. Chest x-ray did show a right lower lobe pneumonia. There is no complaints of nausea or vomiting. Patient was recently diagnosed with ALS about 3 weeks ago. He does have a leukocytosis and mild tachycardia and tachypnea Past Medical History Cardiac Medical History: Reports: Hyperlipidema, Hypertension Pulmonary Medical History: Reports: Bronchitis, Chronic Obstructive Pulmonary Di sease (COPD) - inhalers, Sleep Apnea, Tuberculosis - 2 years ago exposure GI Medical History: Reports: Gastroesophageal Reflux Disease, Hiatal Hernia Denies: Hepatitis Musculoskeltal Medical History: Reports: Arthritis - mild Psychiatric Medical History: Reports: Bipolar Disorder, Depression Hematology: Denies: Anemia, Sickle Cell Disease Past Surgical History Past Surgical History: Reports: Cholecystectomy, Orthopedic Surgery - Injured left leg Social History Lives with: Parents Smoking Status: Former Smoker Frequency of Alcohol Use: Occasional Hx Recreational Drug Use: Yes Drugs: Cocaine, Marijuana Hx Prescription Drug Abuse: No Family History Family History: Reviewed & Not Pertinent, CAD Parental Family History Reviewed: Yes Children Family History Reviewed: Yes Sibling(s) Family History Reviewed.: Yes Medication/Allergy Allergies/Adverse Reactions: Iodinated Contrast Media [Iodinated Contrast- Oral and IV Dye] Allergy (Verified 09/27/18 08:45) Review of Systems Constitutional: PRESENT: chills, fever(s), headache(s), weight gain Eyes: ABSENT: visual disturbances Ears: ABSENT: hearing changes Cardiovascular: ABSENT: chest pain, dyspnea on exertion Respiratory: PRESENT: cough, dyspnea Gastrointestinal: ABSENT: abdominal pain, constipation, diarrhea, hematemesis, hematochezia, nausea, vomiting Genitourinary: ABSENT: dysuria, hematuria Musculoskeletal: ABSENT: joint swelling Integumentary: ABSENT: rash, wounds Neurological: PRESENT: focal weakness. ABSENT: abnormal gait, abnormal speech, confusion, dizziness, syncope Psychiatric: PRESENT: anxiety, depression. ABSENT: homidical ideation, suicidal ideation Endocrine: ABSENT: heat intolerance, polydipsia, polyuria Hematologic/Lymphatic: PRESENT: easy bruising Physical Exam Vital Signs: Temp Pulse Resp BP Pulse Ox 98.5 F 24 H 119/79 92 03/17/19 11:00 03/17/19 12:30 03/17/19 12:00 03/17/19 12:01 Intake & Output 03/16/19 03/17/19 03/18/19 06:59 06:59 06:59 Intake Total 1999 Balance 1999 Weight 80.739 kg General appearance: PRESENT: no acute distress Head exam: PRESENT: atraumatic, normocephalic Eye exam: PRESENT: EOMI, PERRLA. ABSENT: scleral icterus Mouth exam: PRESENT: moist, tongue midline Neck exam: ABSENT: carotid bruit, JVD, lymphadenopathy, thyromegaly Respiratory exam: PRESENT: clear to auscultation sherry. ABSENT: rales, rhonchi, wheezes Cardiovascular exam: PRESENT: RRR. ABSENT: diastolic murmur, rubs, systolic murmur Pulses: PRESENT: normal dorsalis pedis pul Vascular exam: PRESENT: normal capillary refill GI/Abdominal exam: PRESENT: normal bowel sounds, soft. ABSENT: distended, guarding, mass, organolmegaly, rebound, tenderness Rectal exam: PRESENT: deferred Extremities exam: PRESENT: full ROM. ABSENT: calf tenderness, clubbing, pedal edema Neurological exam: PRESENT: alert, awake, oriented to person, oriented to place, oriented to time, oriented to situation, CN II-XII grossly intact. ABSENT: motor sensory deficit Psychiatric exam: PRESENT: appropriate affect. ABSENT: homicidal ideation, suicidal ideation Skin exam: PRESENT: dry, intact, warm. ABSENT: cyanosis, rash Results Laboratory Results: 03/17/19 08:50 03/17/19 10:06 03/17/19 03/17/19 03/17/19 08:50 08:50 08:50 WBC 14.8 H RBC 4.43 Hgb 13.3 L Hct 38.5 MCV 87 MCH 30.1 MCHC 34.7 RDW 15.7 H Plt Count 361 Seg Neutrophils % Not Reportable VBG pH 7.39 VBG pCO2 41.2 VBG HCO3 24.5 VBG Base Excess -0.4 Sodium Cancelled Potassium Cancelled Chloride Cancelled Carbon Dioxide Cancelled Anion Gap Cancelled BUN Cancelled Creatinine Cancelled Est GFR ( Amer) Cancelled Est GFR (Non-Af Amer) Cancelled Glucose Cancelled Lactic Acid Calcium Cancelled Magnesium Total Bilirubin Cancelled AST Cancelled Alkaline Phosphatase Cancelled Ammonia Total Protein Cancelled Albumin Cancelled Urine Color Urine Appearance Urine pH Ur Specific [place] Urine Protein Urine Glucose (UA) Urine Ketones Urine Blood Urine RBC (Auto) Blood Type Antibody Screen 03/17/19 03/17/19 03/17/19 08:50 08:50 09:06 WBC RBC Hgb Hct MCV MCH MCHC RDW Plt Count Seg Neutrophils % VBG pH VBG pCO2 VBG HCO3 VBG Base Excess Sodium Potassium Chloride Carbon Dioxide Anion Gap BUN Creatinine Est GFR ( Amer) Est GFR (Non-Af Amer) Glucose Lactic Acid 2.9 H Calcium Magnesium Total Bilirubin AST Alkaline Phosphatase Ammonia Cancelled Total Protein Albumin Urine Color YELLOW Urine Appearance CLEAR Urine pH 5.0 Ur Specific [place] 1.014 Urine Protein NEGATIVE Urine Glucose (UA) NEGATIVE Urine Ketones NEGATIVE Urine Blood NEGATIVE Urine RBC (Auto) 1 Blood Type Antibody Screen 03/17/19 03/17/19 03/17/19 10:06 10:06 10:06 WBC RBC Hgb Hct MCV MCH MCHC RDW Plt Count Seg Neutrophils % VBG pH VBG pCO2 VBG HCO3 VBG Base Excess Sodium 138.1 Potassium 4.2 Chloride 104 Carbon Dioxide 22 Anion Gap 12 BUN 12 Creatinine 0.51 L Est GFR ( Amer) > 60 Est GFR (Non-Af Amer) Glucose 120 H Lactic Acid Calcium 9.4 Magnesium 1.6 Total Bilirubin 0.4 AST 27 Alkaline Phosphatase 81 Ammonia < 8.7 L Total Protein 6.0 L Albumin 3.9 Urine Color Urine Appearance Urine pH Ur Specific [place] Urine Protein Urine Glucose (UA) Urine Ketones Urine Blood Urine RBC (Auto) Blood Type A POSITIVE Antibody Screen NEGATIVE 03/17/19 11:30 WBC RBC Hgb Hct MCV MCH MCHC RDW Plt Count Seg Neutrophils % VBG pH VBG pCO2 VBG HCO3 VBG Base Excess Sodium Potassium Chloride Carbon Dioxide Anion Gap BUN Creatinine Est GFR ( Amer) Est GFR (Non-Af Amer) Glucose Lactic Acid 1.7 Calcium Magnesium Total Bilirubin AST Alkaline Phosphatase Ammonia Total Protein Albumin Urine Color Urine Appearance Urine pH Ur Specific [place] Urine Protein Urine Glucose (UA) Urine Ketones Urine Blood Urine RBC (Auto) Blood Type Antibody Screen 03/17/19 03/17/19 03/17/19 08:50 10:06 10:06 Creatine Kinase 59 Troponin I Cancelled < 0.012 Impressions: Chest X-Ray 03/17/19 08:31 IMPRESSION: Confluent opacity -airspace disease in the right medial lung base. No significant pleural effusion. Assessment and Plan - Diagnosis (1) Right lower lobe pneumonia Qualifiers: Pneumonia type: due to unspecified organism Qualified Code(s): J18.9 - Pneu monia, unspecified organism Is this a current diagnosis for this admission?: Yes Plan: Will continue with CAP. Consideration for possible aspiration PNA given patient's history. Swallow eval will be obtained as necessary (2) Amyotrophic lateral sclerosis Is this a current diagnosis for this admission?: Yes Plan: Recently diagnosed. Details unavailable (3) Leukocytosis Qualifiers: Leukocytosis type: bandemia Qualified Code(s): D72.825 - Bandemia Is this a current diagnosis for this admission?: Yes Plan: Secondary to infection (4) Sepsis Qualifiers: Sepsis type: sepsis due to unspecified organism Severe sepsis shock status: without septic shock Is this a current diagnosis for this admission?: Yes Plan: Patient has a leukocytosis, tachypnea, tachycardia as well as a diagnosis of pneumonia, all present on admission - Time Time Spent with patient: 25-34 minutes Medications reviewed and adjusted accordingly: Yes Anticipated discharge: Home Within: within 72 hours
[2019-03-17] MEDS ORDERED: LACTULOSE SYRUP 20 GM/30 ML UDCUP PO PRN (21:15)
--- NOTE | 2019-03-17 21:26 | EKG REPORT ---
SEVERITY:- OTHERWISE NORMAL ECG - SINUS TACHYCARDIA RIGHT AXIS DEVIATION : Confirmed by: Carly Spain MD 17-Mar-2019 21:25:25
[2019-03-17] MEDS: PREGABALIN 100 MG CAPSULE PO SCH (21:43)
[2019-03-17] MEDS: OXYCODONE HCL SR 10 MG TABLET PO SCH (21:43)
[2019-03-17] MEDS: GUAIFENESIN 600 MG TABLET.SA PO SCH (21:44)
[2019-03-17] MEDS: TRAZODONE HCL 50 MG TABLET PO SCH (21:44)
[2019-03-18 05:52] LABS: ABSOLUTE EOSINOPHILS # (AUTO) 0.1 10^3/uL (0.0-0.6); ABSOLUTE LYMPHOCYTES (AUTO) 1.6 10^3/uL (0.5-4.7); ABSOLUTE MONOCYTES (AUTO) 0.8 10^3/uL (0.1-1.4); ABSOLUTE NEUT (AUTO) 8.8 10^3/uL (1.7-8.2); BASOPHILS % (AUTO) 0.2 % (0-2); HEMATOCRIT 33.4 % (37.9-51.0); HEMOGLOBIN 11.4 g/dL (13.5-17.0); LYMPHOCYTES % (AUTO) 14.2 % (13-45); MEAN CORPUSCULAR HEMOGLOBIN 29.6 pg (27.0-33.4); MEAN CORPUSCULAR HGB CONC 34.2 g/dL (32.0-36.0); MEAN CORPUSCULAR VOLUME 86 fl (80-97); MONOCYTES % (AUTO) 7.1 % (3-13); PLATELET COUNT 327 10^3/uL (150-450); RED BLOOD COUNT 3.86 10^6/uL (4.35-5.55); RED CELL DISTRIBUTION WIDTH 16.2 % (11.5-14.0); SEGMENTED NEUTROPHILS % (AUTO) 77.5 % (42-78); TOTAL CELLS COUNTED % (AUTO) 100 %; WHITE BLOOD COUNT 11.3 10^3/uL (4.0-10.5)
[2019-03-18] MEDS: NORMAL SALINE 1000 ML 1,000 ML IV PRN ×2 (06:02→17:51)
[2019-03-18] MEDS: PANTOPRAZOLE SODIUM 40 MG TABLET.DR PO SCH (06:03)
[2019-03-18] MEDS: OXYCODONE HCL IR 5 MG TABLET PO PRN ×2 (06:03→23:50)
[2019-03-18 06:21] LABS: ANION GAP 8 (5-19); BLOOD UREA NITROGEN 9 mg/dL (7-20); CALCIUM 9.7 mg/dL (8.4-10.2); CARBON DIOXIDE 25 mmol/L (22-30); CHLORIDE 109 mmol/L (98-107); GLUCOSE 98 mg/dL (75-110); POTASSIUM 3.9 mmol/L (3.6-5.0)
[2019-03-18] MEDS: OXYCODONE HCL SR 10 MG TABLET PO SCH (10:00)
[2019-03-18] MEDS: BACLOFEN 10 MG TABLET PO SCH ×3 (10:00→17:49)
[2019-03-18] MEDS ORDERED: (PENDING PHARMACY ID) (Baclofen [Baclofen] 5 MG) PO SCH (10:00)
[2019-03-18] MEDS: DULOXETINE HCL 30 MG CAPSULE.DR PO SCH (10:01)
[2019-03-18] MEDS: PREGABALIN 100 MG CAPSULE PO SCH ×3 (10:01→17:49)
[2019-03-18] MEDS: GUAIFENESIN 600 MG TABLET.SA PO SCH (10:01)
[2019-03-18] MEDS: ENOXAPARIN SODIUM INJ 40 MG/0.4 ML DISP.SYRIN SUBCUT SCH (10:01)
[2019-03-18] MEDS: AMLODIPINE BESYLATE 5 MG TABLET PO SCH (10:01)
[2019-03-18] MEDS: FLUTICASONE/VILANTEROL 200-25 MCG/DOSE IH SCH (10:01)
[2019-03-18] MEDS: AZITHROMYCIN 500 MG in DEXTROSE 5%-WATER 250 ML IV SCH (10:02)
[2019-03-18] MEDS: CEFTRIAXONE 1 GM/D5W RTU 1 GM/50 ML RTUPB IV SCH (10:03)
--- NOTE | 2019-03-18 16:57 | PDOC PROGRESS REPORT ---
Subjective Progress Note for:: 03/18/19 Subjective:: Patient states that he feels better today. He complains of having difficulty swallowing at home although the nursing staff said he really has had no issues with swallowing his pills now his meals. Chest x-ray does show right middle lobe pneumonia though raising suspicion for aspiration Reason For Visit: PNEUMONIA Physical Exam Vital Signs: Temp Pulse Resp BP Pulse Ox 98.0 F 88 18 109/66 97 03/18/19 12:00 03/18/19 12:00 03/18/19 12:00 03/18/19 12:00 03/18/19 12:00 Intake & Output 03/17/19 03/18/19 03/19/19 06:59 06:59 06:59 Intake Total 3600 956 Output Total 5800 1400 Balance -2200 -444 Weight 80 kg General appearance: PRESENT: no acute distress, cooperative Head exam: PRESENT: atraumatic Neck exam: ABSENT: carotid bruit Respiratory exam: PRESENT: crackles, rhonchi - Right lung, unlabored. ABSENT: accessory muscle use, tachypnea Cardiovascular exam: PRESENT: RRR, +S1, +S2. ABSENT: bradycardia Pulses: PRESENT: normal carotid pulses GI/Abdominal exam: PRESENT: soft. ABSENT: tenderness Rectal exam: PRESENT: deferred Gentrourinary exam: PRESENT: indwelling catheter Extremities exam: ABSENT: calf tenderness Musculoskeletal exam: PRESENT: deformity - LLE scar Results Laboratory Results: 03/18/19 05:31 03/18/19 05:31 03/17/19 03/18/19 03/18/19 17:19 05:31 05:31 WBC 11.3 H RBC 3.86 L Hgb 11.4 L Hct 33.4 L MCV 86 MCH 29.6 MCHC 34.2 RDW 16.2 H Plt Count 327 Seg Neutrophils % 77.5 Sodium 141.6 Potassium 3.9 Chloride 109 H Carbon Dioxide 25 Anion Gap 8 BUN 9 Creatinine 0.54 Est GFR ( Amer) > 60 Glucose 98 Lactic Acid 1.5 Calcium 9.7 03/17/19 03/17/19 03/17/19 08:50 10:06 10:06 Creatine Kinase 59 Troponin I Cancelled < 0.012 Impressions: Chest X-Ray 03/17/19 08:31 IMPRESSION: Confluent opacity -airspace disease in the right medial lung base. No significant pleural effusion. Assessment and Plan - Diagnosis (1) Right lower lobe pneumonia Qualifiers: Pneumonia type: due to unspecified organism Qualified Code(s): J18.9 - Pneumonia, unspecified organism Is this a current diagnosis for this admission?: Yes Plan: She does appear to be improving clinically. His white count is also down to 11.3. We will obtain speech therapy evaluation to rule out aspiration (2) Amyotrophic lateral sclerosis Is this a current diagnosis for this admission?: Yes Plan: Recently diagnosed as per patient. Will get PT and OT evaluation also as it does appear to be weak (3) Leukocytosis Qualifiers: Leukocytosis type: bandemia Qualified Code(s): D72.825 - Bandemia Is this a current diagnosis for this admission?: Yes (4) Sepsis Qualifiers: Sepsis type: sepsis due to unspecified organism Severe sepsis shock status: without septic shock Is this a current diagnosis for this admission?: Yes Plan: Resolved - Time Time Spent with patient: 15-24 minutes
[2019-03-19] MEDS: PREGABALIN 100 MG CAPSULE PO SCH ×5 (00:36→21:30)
[2019-03-19] MEDS: TRAZODONE HCL 50 MG TABLET PO SCH ×2 (00:37→21:30)
[2019-03-19] MEDS: GUAIFENESIN 600 MG TABLET.SA PO SCH ×3 (00:38→21:30)
[2019-03-19] MEDS: OXYCODONE HCL SR 10 MG TABLET PO SCH ×2 (00:38→11:01)
[2019-03-19 05:41] LABS: ABSOLUTE EOSINOPHILS # (AUTO) 0.2 10^3/uL (0.0-0.6); ABSOLUTE LYMPHOCYTES (AUTO) 1.7 10^3/uL (0.5-4.7); ABSOLUTE MONOCYTES (AUTO) 0.8 10^3/uL (0.1-1.4); ABSOLUTE NEUT (AUTO) 7.3 10^3/uL (1.7-8.2); BASOPHILS % (AUTO) 0.4 % (0-2); EOSINOPHILS % (AUTO) 2.2 % (0-6); HEMATOCRIT 35.1 % (37.9-51.0); HEMOGLOBIN 12.1 g/dL (13.5-17.0); LYMPHOCYTES % (AUTO) 17.1 % (13-45); MEAN CORPUSCULAR HEMOGLOBIN 30.1 pg (27.0-33.4); MEAN CORPUSCULAR HGB CONC 34.5 g/dL (32.0-36.0); MEAN CORPUSCULAR VOLUME 87 fl (80-97); MONOCYTES % (AUTO) 7.6 % (3-13); PLATELET COUNT 355 10^3/uL (150-450); RED BLOOD COUNT 4.02 10^6/uL (4.35-5.55); RED CELL DISTRIBUTION WIDTH 15.9 % (11.5-14.0); SEGMENTED NEUTROPHILS % (AUTO) 72.7 % (42-78); TOTAL CELLS COUNTED % (AUTO) 100 %
[2019-03-19] MEDS: NORMAL SALINE 1000 ML 1,000 ML IV PRN (05:54)
[2019-03-19] MEDS: PANTOPRAZOLE SODIUM 40 MG TABLET.DR PO SCH (05:56)
[2019-03-19] MEDS: OXYCODONE HCL IR 5 MG TABLET PO PRN ×3 (05:56→21:31)
[2019-03-19] MEDS: FLUTICASONE/VILANTEROL 200-25 MCG/DOSE IH SCH (10:54)
[2019-03-19] MEDS: CEFTRIAXONE 1 GM/D5W RTU 1 GM/50 ML RTUPB IV SCH (10:58)
[2019-03-19] MEDS: ENOXAPARIN SODIUM INJ 40 MG/0.4 ML DISP.SYRIN SUBCUT SCH (10:58)
[2019-03-19] MEDS: AZITHROMYCIN 500 MG in DEXTROSE 5%-WATER 250 ML IV SCH (10:59)
[2019-03-19] MEDS: DULOXETINE HCL 30 MG CAPSULE.DR PO SCH (11:00)
[2019-03-19] MEDS: BACLOFEN 10 MG TABLET PO SCH ×3 (11:00→18:40)
[2019-03-19] MEDS: AMLODIPINE BESYLATE 5 MG TABLET PO SCH (11:01)
[2019-03-19] MEDS ORDERED: OXYCODONE HCL SR 10 MG TABLET PO PRN (14:09)
[2019-03-19] MEDS ORDERED: NORMAL SALINE 1000 ML 1,000 ML IV PRN (14:12)
--- NOTE | 2019-03-19 14:22 | PDOC PROGRESS REPORT ---
Subjective Progress Note for:: 03/19/19 Subjective:: Patient states is feeling better today. He is complaining of his pain medicine not been given to him. This had been on hold because initially on presentation due to his altered mental status there was concern for oversedation Reason For Visit: PNEUMONIA Physical Exam Vital Signs: Temp Pulse Resp BP Pulse Ox 97.9 F 94 18 140/77 H 96 03/19/19 12:00 03/19/19 12:00 03/19/19 12:00 03/19/19 12:00 03/19/19 12:00 Intake & Output 03/18/19 03/19/19 03/20/19 06:59 06:59 06:59 Intake Total 3600 3526 Output Total 5800 5000 Balance -2200 -1474 Weight 80 kg 79.3 kg General appearance: PRESENT: no acute distress, well-developed, well-nourished Head exam: PRESENT: atraumatic, normocephalic Eye exam: PRESENT: conjunctiva pink, PERRLA. ABSENT: scleral icterus Mouth exam: PRESENT: tongue midline Neck exam: ABSENT: carotid bruit, JVD, lymphadenopathy, thyromegaly Respiratory exam: PRESENT: rhonchi - Scattered R lung. ABSENT: rales, wheezes Cardiovascular exam: PRESENT: RRR. ABSENT: diastolic murmur, rubs, systolic murmur Pulses: PRESENT: normal dorsalis pedis pul Vascular exam: PRESENT: normal capillary refill GI/Abdominal exam: PRESENT: normal bowel sounds, soft. ABSENT: distended, guarding, mass, organolmegaly, rebound, tenderness Rectal exam: PRESENT: deferred Extremities exam: PRESENT: full ROM, other - RUE cast. ABSENT: calf tenderness, clubbing, pedal edema Neurological exam: PRESENT: alert, awake, oriented to person, oriented to place, oriented to time. ABSENT: motor sensory deficit Psychiatric exam: PRESENT: appropriate affect, normal mood. ABSENT: homicidal ideation, suicidal ideation Skin exam: PRESENT: dry, intact, warm. ABSENT: cyanosis, rash Results Laboratory Results: 03/19/19 04:49 03/18/19 05:31 03/19/19 04:49 WBC 10.0 RBC 4.02 L Hgb 12.1 L Hct 35.1 L MCV 87 MCH 30.1 MCHC 34.5 RDW 15.9 H Plt Count 355 Seg Neutrophils % 72.7 03/17/19 21:42 Sputum Gram Stain - Final 03/17/19 21:42 Sputum Sputum Culture - Final NORMAL TYSON 03/17/19 03/17/19 03/17/19 08:50 10:06 10:06 Creatine Kinase 59 Troponin I Cancelled < 0.012 Impressions: Chest X-Ray 03/17/19 08:31 IMPRESSION: Confluent opacity -airspace disease in the right medial lung base. No significant pleural effusion. Assessment and Plan - Diagnosis (1) Right lower lobe pneumonia Qualifiers: Pneumonia type: due to unspecified organism Qualified Code(s): J18.9 - Pneumonia, unspecified organism Is this a current diagnosis for this admission?: Yes Plan: His white count is also down to 10 F/u with speech therapy evaluation as well as PT/OT He likely will need Rehab at [place] (2) Amyotrophic lateral sclerosis Is this a current diagnosis for this admission?: Yes Plan: Recently diagnosed as per patient. Will get PT and OT evaluation also as it does appear to be weak (3) Leukocytosis Qualifiers: Leukocytosis type: bandemia Qualified Code(s): D72.825 - Bandemia Is this a current diagnosis for this admission?: Yes Plan: Improved (4) Sepsis Qualifiers: Sepsis type: sepsis due to unspecified organism Severe sepsis shock status: without septic shock Is this a current diagnosis for this admission?: Yes Plan: Resolved - Plan Summary Summary: Day 3 on IV antibiotics. Patient continues to stabilize. Discharge planning for possible rehab should be initiated
[2019-03-19] MEDS ORDERED: FENTANYL 50 MCG/HR PATCH.TD72 TD SCH (15:00)
--- NOTE | 2019-03-19 15:22 | RADIOLOGY REPORT (SQ) ---
EXAM DESCRIPTION: LYLE SWALLOW COMPLETED DATE/TIME: 03/19/2019 3:10 pm REASON FOR STUDY: ALS, aspiration pneumonia COMPARISON: None. TECHNIQUE: Videofluoroscopic swallowing examination was performed in conjunction with speech patholo gy. Videofluoroscopic imaging was obtained and reviewed and these are the findings: RADIATION DOSE: Fluoro time 2.35 minutes 1 images saved to PACS. LIMITATIONS: None FINDINGS: The patient was brought into the fluoro room and placed upright on a modified barium swall ow chair. The patient was then given multiple consistencies mixed with barium to swallow under live fluoroscopic video guidance. According to the Speech Pathologist there was no penetration or aspirat ion. Please refer to the speech pathology report for further details. IMPRESSION: NO EVIDENCE OF PENETRATION OR ASPIRATION. PLEASE SEE SPEECH PATHOLOGIST REPORT FOR OTHER FINDINGS AND RECOMMENDATIONS. COMMENT: None Quality ID [id number]: Final reports for procedures using fluoroscopy that document radiation exposure toño hari, or exposure time and number of fluorographic images (if radiation exposure indices are not avail able) TECHNICAL DOCUMENTATION: JOB ID: [id number] 2010 [employer]- All Rights Reserved Reading location - IP/workstation name: [email or web address]
--- NOTE | 2019-03-19 15:25 | ST Inp Modified Barium Swallow ---
Medical Diagnosis - Medical Diagnoses Medical Diagnosis Description & ICD-10 Code(s): Pneumonia - ICD-10 Tx Diagnosis Coding (1) Amyotrophic lateral sclerosis ICD-10 Code(s): G12.21 - AMYOTROPHIC LATERAL SCLEROSIS (2) Leukocytosis ICD-10 Code(s): D72.829 - ELEVATED WHITE BLOOD CELL COUNT, UNSPECIFIED (3) Right lower lobe pneumonia ICD-10 Code(s): J18.9 - PNEUMONIA, UNSPECIFIED ORGANISM (4) Sepsis ICD-10 Code(s): A41.9 - SEPSIS, UNSPECIFIED ORGANISM (5) Dysphagia, oral phase ICD-10 Code(s): R13.11 - DYSPHAGIA, ORAL PHASE (6) Dysphagia, oropharyngeal ICD-10 Code(s): R13.12 - DYSPHAGIA, OROPHARYNGEAL PHASE (7) Dysphagia, pharyngeal ICD-10 Code(s): R13.13 - DYSPHAGIA, PHARYNGEAL PHASE ST Inpatient [facility] [place] - General Date: 03/19/19 Date of Onset: 02/07/19 - diagnosed with ALS approximately 3 weeks age - History History Obtained From: Patient, Other - EMR -: Medical - Patient reports "I can't swallow", reports unable to swallow saliva and it scares him when he can't swallow. Denies any difficulty with foods. Patient's diagnoses including ALS (recently diagnosed), right lower lobe pneumonia, leukocytosis, and sepsis. Patient reports unable to feed himself or perform oral care. Reports ALS has progressed rapidly - states "all began in last 6 months" and stated has been told these changes should take years. Prior medical history includes hypertension, COPD, bipolar disorder, depression, & hiatal hernia. Patient lives at home with parents, mother is acting as caregiver. Medications: Medications Reviewed Allergies: Refer to medical record - Subjective Current Nutritional Means: PO Current PO Diet: Regular Current Symptoms: Pneumonia, other - patient reports unable to swallow saliva Pain: 0/5 - Objective Assessment: Upright, Left Lateral - Food Trials Food Trials Used: Thin liquids, Mart thick liquids, Pureed, Regular The Patient: Required Assist - patient unable to self feed; reports not able to move arms for feeding or oral care - Assessment Labial Function: Within Functional Limits Lingual Function: Within Functional Limits Mandibular Function: Within Functional Limits Dentition: Partial Laryngeal Function: weak voicing, hoarse - Pharyngeal Stage Initiation of Pharyngeal Stage: Normal Decreased Laryngeal Elevation: No Reduced Velo-Pharyngeal Closure: no Reduced Pressure Generation: Yes Reduced Tongue Base Retraction: Yes Reduced Epiglottic Excursion: Yes Reduced Pharyngeal Peristalsis: Yes Multiple Swallows With: Ineffective Clearance - for solids; thin, nectar & puree demonstrated adequate clearance with multiple swallows Post Swallow Residuals in Valleculae: Significant Post Swallow Residuals in Pyriforms: Mild - Esophageal Stage Cricophageal Function: Normal - Impression/Summary Laryngeal Penetration: No Tracheal Aspiration: no Patient Presents With: Oral stage dysphagia, Pharyngeal stage dysph., Oral- Pharyngeal dysph., Severe Risk of Aspiration: Severe Risk of Nutritional Compromise: Moderate Risk Due To: Greatest risk of aspiration is on residuals from solids being aspirated after the swallow and this is likely occuring across a meal - Recommendations NPO: no Solid Diet Recommendations: Pureed Liquid Diet Recommendations: Thin Regular Diet: No Strict Aspitarion Precautions: Yes Dysphagia Therapy with LANCE CREWMEMBER: Yes - Recommend therapy after discharge; currently patient is planning to go home and may benefit from either home health or outpatient speech therapy. Speech therapy is recommended to help monitor for any changes and advise on diet modifications as disease progresses. Recommended Techniques: Fully Upright During Meal, Small Bites and Sips, Alternate Bites/Sips Supervision: requires assistance Other Recommendations: Patient did not demonstrate any aspiration or penetration during the MBSS, however had post-swallow residuals in the valleculae that he was unable to clear with repeat swallows, hard swallows, liquid wash, or use of pudding bolus. Patient is at HIGH risk of aspiration on solids due to residuals and is very likely aspirating across the course of a meal even though no aspiration observed on MBSS. Safest diet for patient is thin liquid and puree, however patient declined - stated "I'd rather ". ST educated patient on anatomy and physiology of swallowing, aspiration, & risks of aspiration. Patient reported desire to continue regular diet at this time but states if eating becomes more difficult would consider changing diet. Patient asked appropriate questions including asking about "fast acting" item he could take if has pneumonia again. ST encouraged patient to discuss with physician; provided written information on signs & symptoms of pneumonia and encouraged patient to contact physician quickly with any signs. ST also educated patient on ways to reduce risk of aspiration pneumonia other than diet modifications - namely use of good oral care. Patient reports unable to brush teeth due to difficulty moving arms but reports his mother would help him and has purchased electric toothbrush to make this easier (however also reports have not been brushing teeth daily). ST encouraged patient to brush teeth BEFORE meals to reduce oral bacteria being aspirated & patient verbalized understanding. - Time Total Time: 30 Total Timed Minutes: 0
[2019-03-20] MEDS: OXYCODONE HCL IR 5 MG TABLET PO PRN (03:43)
[2019-03-20] MEDS: PANTOPRAZOLE SODIUM 40 MG TABLET.DR PO SCH (05:09)
[2019-03-20] MEDS: BACLOFEN 10 MG TABLET PO SCH (09:16)
[2019-03-20] MEDS: AMLODIPINE BESYLATE 5 MG TABLET PO SCH (09:17)
[2019-03-20] MEDS: FLUTICASONE/VILANTEROL 200-25 MCG/DOSE IH SCH (09:17)
[2019-03-20] MEDS: GUAIFENESIN 600 MG TABLET.SA PO SCH (09:17)
[2019-03-20] MEDS: PREGABALIN 100 MG CAPSULE PO SCH (09:17)
[2019-03-20] MEDS: DULOXETINE HCL 30 MG CAPSULE.DR PO SCH (09:17)
[2019-03-20] MEDS: ENOXAPARIN SODIUM INJ 40 MG/0.4 ML DISP.SYRIN SUBCUT SCH (09:19)
[2019-03-20] MEDS: CEFTRIAXONE 1 GM/D5W RTU 1 GM/50 ML RTUPB IV SCH (09:20)
[2019-03-20] MEDS: AZITHROMYCIN 500 MG in DEXTROSE 5%-WATER 250 ML IV SCH (09:20)
--- NOTE | 2019-03-20 11:11 | PDOC DISCHARGE SUMMARY ---
Impression - Admit/DC Date/PCP Admission Date/Primary Care Provider: 03/17/19 13:01 Discharge Date: 03/20/19 - Discharge Diagnosis (1) Amyotrophic lateral sclerosis Is this a current diagnosis for this admission?: Yes (2) Dysphagia, oral phase Is this a current diagnosis for this admission?: Yes (3) Dysphagia, oropharyngeal Is this a current diagnosis for this admission?: Yes (4) Dysphagia, pharyngeal Is this a current diagnosis for this admission?: Yes (5) Leukocytosis Is this a current diagnosis for this admission?: Yes (6) Right lower lobe pneumonia Is this a current diagnosis for this admission?: Yes (7) Sepsis Is this a current diagnosis for this admission?: Yes - Additional Information Resuscitation Status: Full Code Discharge Diet: As Tolerated, Regular Discharge Activity: Activity As Tolerated, Balance Activity w/Rest Referrals: STEPHEN DELGADO PA-C [NO LOCAL MD] - Prescriptions: Azithromycin 250 mg PO DAILY #3 tablet Fluticasone/Vilanterol [Breo 200-25 Mcg Ellipta 14 Dose/Dpi] 1 inh IH DAILY #1 inhaler Guaifenesin [Mucinex Sr 600 mg Tablet.sa] 600 mg PO Q12 #14 tablet.sa Home Medications: Albuterol Sulfate [Proair HFA Inhalation Aerosol 8.5 gm MDI] 2 puff IH Q4 PRN 03/17/19 Albuterol Sulfate [Ventolin 0.083% Neb 2.5 mg/3 mL Ampul] 2.5 mg NEB RTQ6 03/17/19 Amlodipine Besylate [Norvasc 5 mg Tablet] 5 mg PO DAILY 03/17/19 Baclofen 5 mg PO TID 03/17/19 Duloxetine HCl [Cymbalta 30 mg Capsule.dr] 30 mg PO DAILY 03/17/19 Fentanyl [Duragesic 25 mcg/hr Transdermal Patch] 1 each TD Q3D 03/17/19 Fentanyl [Duragesic 50 Mcg/Hr Transdermal Patch] 1 patch TD Q3D 03/17/19 Fluticasone/Salmeterol [Advair 500-50 Diskus 14 Dose/Diskus] 1 inh IH Q12 03/17/19 Lactulose 30 ml PO DAILYP PRN 03/17/19 Omeprazole 40 mg PO DAILY 03/17/19 Pregabalin 300 mg PO QID 03/17/19 Trazodone HCl 400 mg PO QHS 03/17/19 Oxycodone HCl [Oxy-Ir 5 mg Tablet] 5 mg PO Q4HP PRN 03/19/19 Acetaminophen [Tylenol 325 mg Tablet] 650 mg PO Q4HP PRN tablet 03/20/19 Azithromycin 250 mg PO DAILY #3 tablet 03/20/19 Fluticasone/Vilanterol [Breo 200-25 Mcg Ellipta 14 Dose/Dpi] 1 inh IH DAILY #1 inhaler 03/20/19 Guaifenesin [Mucinex Sr 600 mg Tablet.sa] 600 mg PO Q12 #14 tablet.sa 03/20/19 History of Present Illiness History of Present Illness: Per H&P by Dr. Ayala: LAURENT PENG is a 53 year old male Patient presents emergency room with complaints of confusion and generalized weakness which started last night. He was apparently found to be febrile. He was noted to have a cough and sputum. He apparently was recently diagnosed with pneumonia about 2 months ago. He was given IV fluids as well as antibiotics by EMS prior to arrival in the ED. Patient was noted to be afebrile on initial arrival to the ED. Chest x-ray did show a right lower lobe pneumonia. There is no complaints of nausea or vomiting. Patient was recently diagnosed with ALS about 3 weeks ago. He does have a leukocytosis and mild tachycardia and tachypnea Hospital Course Hospital Course: (1) Right lower lobe pneumonia Patient was admitted to the medical floor on continuous cardiac telemetry. He was supported with supplemental oxygen, scheduled as needed nebulizer treatments, Flonase, Mucinex, and Robitussin as needed. He was empirically placed on IV Rocephin and azithromycin for treatment of community-acquired pneumonia. Pulmonary toilet was strongly encouraged. Patient rapidly improved and is now maintaining oxygen saturations on room air while at rest. Patient is nonambulatory. He underwent a MBSS with results and recommendations as described below. The patient received 3 days of IV antibiotic therapy; he is now insisting on discharge to home. As the patient is clinically improved, with clear lung sounds, and maintaining oxygen saturations while at rest, he is discharged home into the care of family members. Fortunately, he is agreeable to home health services with nursing, PT/OT/ST, aide, and social worker assistant. (2) Amyotrophic lateral sclerosis Patient is agreeable to discharge to home with home health nursing, PT, OT, ST, aide, and social worker assistant services. His home medication regimen of Cymbalta, baclofen, Duragesic patches, oxycodone, Lyrica, and trazodone were continued. Speech therapy was consulted and he underwent Modified barium swallow study on 03/19/2019. The patient did not demonstrate aspiration or penetration during the MBSS, however did have post swallow residuals that he had difficulty clearing. Therefore, he is at high risk for aspiration and is recommended to be placed on a pured and thin liquid diet. Patient adamantly declines. (3) Leukocytosis Resolved; secondary #1. (4) Sepsis Resolved The patient received adequate IV fluid resuscitation, supportive oxygen, and empirically placed on IV Rocephin and azithromycin for treatment of community- acquired pneumonia. Blood cultures are negative at 5 days. Sputum culture demonstrated normal lesia. Physical Exam Vital Signs: Temp Pulse Resp BP Pulse Ox 97.9 F 88 18 140/65 H 93 03/19/19 23:11 03/19/19 23:11 03/19/19 23:11 03/19/19 23:11 03/19/19 23:11 Intake & Output 03/19/19 03/20/19 03/21/19 06:59 06:59 06:59 Intake Total 3526 1520 Output Total 5000 4050 Balance -1474 -2530 Weight 79.3 kg 80.9 kg General appearance: PRESENT: no acute distress, cooperative, well-developed, w ell-nourished Head exam: PRESENT: atraumatic, normocephalic Eye exam: PRESENT: conjunctiva pink, EOMI, PERRLA. ABSENT: scleral icterus Ear exam: PRESENT: normal external ear exam Mouth exam: PRESENT: moist, tongue midline Neck exam: ABSENT: carotid bruit, JVD, lymphadenopathy, thyromegaly Respiratory exam: PRESENT: rhonchi, symmetrical, unlabored, other - room air. ABSENT: rales, wheezes Cardiovascular exam: PRESENT: RRR, +S1, +S2. ABSENT: diastolic murmur, rubs, systolic murmur Pulses: PRESENT: normal dorsalis pedis pul Vascular exam: PRESENT: normal capillary refill GI/Abdominal exam: PRESENT: normal bowel sounds, soft. ABSENT: distended, guarding, mass, organolmegaly, rebound, tenderness Rectal exam: PRESENT: deferred Gentrourinary exam: PRESENT: indwelling catheter Extremities exam: PRESENT: full ROM. ABSENT: calf tenderness, clubbing, pedal edema Neurological exam: PRESENT: alert, awake, oriented to person, oriented to place, oriented to time, oriented to situation, CN II-XII grossly intact. ABSENT: motor sensory deficit Psychiatric exam: PRESENT: appropriate affect, normal mood. ABSENT: homicidal ideation, suicidal ideation Skin exam: PRESENT: dry, intact, warm. ABSENT: cyanosis, rash Results Laboratory Results: WBC 10.0 10^3/uL (4.0-10.5) 03/19/19 04:49 RBC 4.02 10^6/uL (4.35-5.55) L 03/19/19 04:49 Hgb 12.1 g/dL (13.5-17.0) L 03/19/19 04:49 Hct 35.1 % (37.9-51.0) L 03/19/19 04:49 MCV 87 fl (80-97) 03/19/19 04:49 MCH 30.1 pg (27.0-33.4) 03/19/19 04:49 MCHC 34.5 g/dL (32.0-36.0) 03/19/19 04:49 RDW 15.9 % (11.5-14.0) H 03/19/19 04:49 Plt Count 355 10^3/uL (150-450) 03/19/19 04:49 Lymph % (Auto) 17.1 % (13-45) 03/19/19 04:49 [place] % (Auto) 7.6 % (3-13) 03/19/19 04:49 Eos % (Auto) 2.2 % (0-6) 03/19/19 04:49 Baso % (Auto) 0.4 % (0-2) 03/19/19 04:49 Absolute Neuts (auto) 7.3 10^3/uL (1.7-8.2) 03/19/19 04:49 Absolute Lymphs (auto) 1.7 10^3/uL (0.5-4.7) 03/19/19 04:49 Absolute Monos (auto) 0.8 10^3/uL (0.1-1.4) 03/19/19 04:49 Absolute Eos (auto) 0.2 10^3/uL (0.0-0.6) 03/19/19 04:49 Absolute Basos (auto) 0.0 10^3/uL (0.0-0.2) 03/19/19 04:49 Total Counted 100 03/17/19 08:50 Seg Neutrophils % 72.7 % (42-78) 03/19/19 04:49 Seg Neuts % (Manual) 84 % (42-78) H 03/17/19 08:50 Band Neutrophils % 1 % (3-5) L 03/17/19 08:50 Lymphocytes % (Manual) 8 % (13-45) L 03/17/19 08:50 Monocytes % (Manual) 7 % (3-13) 03/17/19 08:50 Eosinophils % (Manual) 0 % (0-6) 03/17/19 08:50 Basophils % (Manual) 0 % (0-2) 03/17/19 08:50 Abs Neuts (Manual) 12.6 10^3/uL (1.7-8.2) H 03/17/19 08:50 Abs Lymphs (Manual) 1.2 10^3/uL (0.5-4.7) 03/17/19 08:50 Abs Monocytes (Manual) 1.0 10^3/uL (0.1-1.4) 03/17/19 08:50 Absolute Eos (Manual) 0.0 10^3/uL (0.0-0.6) 03/17/19 08:50 Abs Basophils (Manual) 0.0 10^3/uL (0.0-0.2) 03/17/19 08:50 Clumped Platelets PRESENT 03/17/19 08:50 Platelet Comment ADEQUATE 03/17/19 08:50 Anisocytosis SLIGHT 03/17/19 08:50 PT 13.6 SEC (11.4-15.4) 03/17/19 08:50 INR 1.04 03/17/19 08:50 VBG pH 7.39 (7.30-7.42) 03/17/19 08:50 VBG pCO2 41.2 mmHg (35-63) 03/17/19 08:50 VBG HCO3 24.5 mmol/L (20-32) 03/17/19 08:50 VBG Base Excess -0.4 mmol/L 03/17/19 08:50 Sodium 141.6 mmol/L (137-145) 03/18/19 05:31 Potassium 3.9 mmol/L (3.6-5.0) 03/18/19 05:31 Chloride 109 mmol/L (98-107) H 03/18/19 05:31 Carbon Dioxide 25 mmol/L (22-30) 03/18/19 05:31 Anion Gap 8 (5-19) 03/18/19 05:31 BUN 9 mg/dL (7-20) 03/18/19 05:31 Creatinine 0.54 mg/dL (0.52-1.25) 03/18/19 05:31 Est GFR ( Amer) > 60 (>60) 03/18/19 05:31 Est GFR (Non-Af Amer) Cancelled 03/17/19 08:50 Est GFR (MDRD) Non-Af > 60 (>60) 03/18/19 05:31 Glucose 98 mg/dL (75-110) 03/18/19 05:31 Lactic Acid 1.5 mmol/L (0.7-2.1) 03/17/19 17:19 Calcium 9.7 mg/dL (8.4-10.2) 03/18/19 05:31 Magnesium 1.6 mg/dL (1.6-2.3) 03/17/19 10:06 Total Bilirubin 0.4 mg/dL (0.2-1.3) 03/17/19 10:06 Direct Bilirubin 0.0 mg/dL (0.0-0.4) 03/17/19 10:06 Neonat Total Bilirubin Not Reportable 03/17/19 10:06 Neonat Direct Bilirubin Not Reportable 03/17/19 10:06 Neonat Indirect Bili Not Reportable 03/17/19 10:06 AST 27 U/L (17-59) 03/17/19 10:06 ALT 29 U/L (<50) 03/17/19 10:06 Alkaline Phosphatase 81 U/L (38-126) 03/17/19 10:06 Ammonia < 8.7 umol/L (9-33) L 03/17/19 10:06 Creatine Kinase 59 U/L (55-170) 03/17/19 10:06 Troponin I < 0.012 ng/mL 03/17/19 10:06 Total Protein 6.0 g/dL (6.3-8.2) L 03/17/19 10:06 Albumin 3.9 g/dL (3.5-5.0) 03/17/19 10:06 EGFR Cancelled 03/17/19 08:50 Urine Color YELLOW 03/17/19 09:06 Urine Appearance CLEAR 03/17/19 09:06 Urine pH 5.0 (5.0-9.0) 03/17/19 09:06 Ur Specific [place] 1.014 03/17/19 09:06 Urine Protein NEGATIVE mg/dL (NEGATIVE) 03/17/19 09:06 Urine Glucose (UA) NEGATIVE mg/dL (NEGATIVE) 03/17/19 09:06 Urine Ketones NEGATIVE mg/dL (NEGATIVE) 03/17/19 09:06 Urine Blood NEGATIVE (NEGATIVE) 03/17/19 09:06 Urine Nitrite (Reflex) NEGATIVE (NEGATIVE) 03/17/19 09:06 Urine Bilirubin NEGATIVE (NEGATIVE) 03/17/19 09:06 Urine Urobilinogen NEGATIVE mg/dL (<2.0) 03/17/19 09:06 Leukocyte Esterase Rfl NEGATIVE (NEGATIVE) 03/17/19 09:06 Urine RBC (Auto) 1 /HPF 03/17/19 09:06 Urine WBC (Reflex) 1 /HPF 03/17/19 09:06 Squamous Epi Cells Auto <1 /HPF 03/17/19 09:06 Urine Mucus (Auto) RARE /LPF 03/17/19 09:06 Urine Ascorbic Acid NEGATIVE (NEGATIVE) 03/17/19 09:06 Serum Alcohol < 10 mg/dL (NONE DETECTED) 03/17/19 10:06 Blood Type A POSITIVE 03/17/19 10:06 Antibody Screen NEGATIVE 03/17/19 10:06 03/17/19 03/17/19 08:50 10:06 Troponin I Cancelled < 0.012 Impressions: Chest X-Ray 03/17/19 08:31 IMPRESSION: Confluent opacity -airspace disease in the right medial lung base. No significant pleural effusion. Modified Barium Swallow 03/19/19 00:00 IMPRESSION: NO EVIDENCE OF PENETRATION OR ASPIRATION. PLEASE SEE SPEECH PATHOLOGIST REPORT FOR OTHER FINDINGS AND RECOMMENDATIONS. Plan Plan of Treatment: Patient is discharged home in the care of family members with home health services. He is instructed to follow-up with his primary care provider within 1 week. He is advised to take his medications as prescribed. He is instructed on the importance of continuing pulmonary toilet with incentive spirometer and positioning changing. He requests to be discharged to home with his Caceres catheter in place due to impaired mobility; he is advised about the importance of excellent hygiene and is told that he will need to discuss this further with his palliative care provider as they may recommend discontinuing the Caceres. He is instructed to return to the emergency department as needed for concerning symptoms. Time Spent: Greater than 30 Minutes Stroke Is this a Stroke Patient?: No Acute Heart Failure - Is this a Heart Failure Patient?: No
[2019-03-20 11:12] VITALS: BP 134/72
== END 2019-03-20 11:30 | disposition home health service (06) | DRG 871 ==
LOC: ER 08:29 → EH 13:01 → 5 16:06
PROVIDERS: ADMIT Internal Medicine; ATTEND Internal Medicine
DX: A41.9 Sepsis, unspecified organism (principal); J18.9 Pneumonia, unspecified organism; G12.21 Amyotrophic lateral sclerosis; R41.82 Altered mental status, unspecified; E78.00 Pure hypercholesterolemia, unspecified; I10 Essential (primary) hypertension; K21.9 Gastro-esophageal reflux disease without esophagitis; J44.9 Chronic obstructive pulmonary disease, unspecified; R13.11 Dysphagia, oral phase; D72.829 Elevated white blood cell count, unspecified; F31.9 Bipolar disorder, unspecified
CPT/HCPCS: 36415; 51701; 51702; 71045; 74230; 80048; 80053; 80307; 81001; 82140; 82550; 82803; 83605; 83735; 84484; 85025; 85610; 86850; 86900; 86901; 87040; 87070; 87205; 93005; 93010; 96361; 96365; 99285; C9113; J0456; J0696; J1650; J1956; J3490; J7030; J7060; J7120

== ENCOUNTER 2019-06-28 19:44 | Emergency (ER) | payer MEDICAID ==
[2019-06-28] MEDS ORDERED: OXYCODONE HCL IR 5 MG TABLET PO ONE (20:16)
--- NOTE | 2019-06-28 20:48 | RADIOLOGY REPORT (SQ) ---
CLINICAL INDICATION: pain. . TECHNIQUE: 2 view(s) were obtained of the left ankle. COMPARISON: None. FINDINGS: No acute displaced fracture is identified of the ankle. Old posttraumatic change. Demineralization. Deformity.. Accelerated osteoarthritis tibiotalar. Soft tissue injury associated with the underlying bony injury. IMPRESSION: No evidence of acute displaced fracture of the ankle. Old posttraumatic change with resultant deformity
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
[2019-06-28 22:59] VITALS: BP 111/77
== END 2019-06-28 23:02 | disposition home or self-care (01) ==
LOC: ER 19:44
DX: M25.572 Pain in left ankle and joints of left foot (principal); M25.521 Pain in right elbow; M25.522 Pain in left elbow; Z88.8 Allergy status to other drugs, medicaments and biological substances; Z87.891 Personal history of nicotine dependence; I10 Essential (primary) hypertension; J44.9 Chronic obstructive pulmonary disease, unspecified
CPT/HCPCS: 99283; 73600; J3490

== ENCOUNTER 2019-08-24 18:21 | Observation (INO) | payer MEDICAID ==
--- NOTE | 2019-08-24 18:51 | ER Document Report ---
ED GI/ - General TRAVEL OUTSIDE OF THE [place] IN LAST 30 DAYS: No <AARTI CANADA - Last Filed: 08/24/19 20:41> <ZARI COLVIN - Last Filed: 08/25/19 08:13> <NATALYA FARRELL - Last Filed: 08/25/19 15:10> - General Chief Complaint: Constipation Stated Complaint: CONSTIPATION Time Seen by Provider: 08/24/19 18:37 Notes: Patient is a 54-year-old male with a history of ALS, Pneumonia, who presents in the emergency department with a chief complaint of constipation. Patient states that he has not had a bowel movement in the past 4 days. Patient states that he feels the stool in his rectum. Patient states that he does not usually get constipated. He is currently on oxycodone 20 mg daily. Patient states that he feels he needs to have a bowel movement, but cannot get it out. Patient states that the pain in his rectum makes him feel short of breath. (AARTI CANADA) Patient was handed over to me by Aarti [place] [employer]INGS INSPECTOR. We went to bedside to examine the patient and to attempt to disimpact the patient. The patient began to vomit. He vomited solid foods. I suspect patient aspirated. He was started on Zosyn. Acute abdomen series shows dilated loops of bowel and fecal impaction of the rectum. NG tube was placed for the patient. Patient remains to be tachycardic tachypneic and hypoxic. He was placed on 4 L nasal cannula. Sony t does not require oxygen at home. (ZARI COLVIN) - Related Data Allergies/Adverse Reactions: Iodinated Contrast Media [Iodinated Contrast- Oral and IV Dye] Allergy (Verified 09/27/18 08:45) Past Medical History - General Information source: Patient - Social History Family History: Reviewed & Not Pertinent, CAD - Past Medical History Cardiac Medical History: Reports: Hx Hypercholesterolemia, Hx Hypertension Pulmonary Medical History: Reports: Hx Bronchitis, Hx COPD - inhalers, Hx Sleep Apnea, Hx Tuberculosis - 2 years ago exposure Renal/ Medical History: Reports: Hx Kidney Stones GI Medical History: Reports: Hx Gastroesophageal Reflux Disease, Hx Hiatal Hernia, Hx Pancreatitis - ETOH. Denies: Hx Hepatitis Musculoskeletal Medical History: Reports Hx Arthritis - mild, Reports Hx Musculoskeletal Deformity, Reports Hx Musculoskeletal Trauma Psychiatric Medical History: Reports: Hx Anxiety, Hx Bipolar Disorder, Hx Depression Infectious Medical History: Denies: Hx Hepatitis Past Surgical History: Reports: Hx Cholecystectomy, Hx Orthopedic Surgery - Injured left leg, Hx Pancreatic Surgery, Hx Umbilical Hernia - Immunizations Hx Diphtheria, Pertussis, Tetanus Vaccination: No - 11/12/18 <AARTI CANADA - Last Filed: 08/24/19 20:41> - Social History Smoking Status: Unknown if Ever Smoked <ZARI COLVIN - Last Filed: 08/25/19 08:13> Review of Systems <AARTI CANADA - Last Filed: 08/24/19 20:41> - Review of Systems Notes: REVIEW OF SYSTEMS: CONSTITUTIONAL : Denies recent illness. Denies recent unintentional weight loss. Denies fever, chills, or sweats. EENT: Denies eye, ear, throat, or mouth pain, discharge, or symptoms. Denies nasal or sinus congestion. CARDIOVASCULAR: Denies chest pain. RESPIRATORY: See HPI. GASTROINTESTINAL: See HPI. GENITOURINARY: Denies difficulty urinating, burning, blood in urine, urgency or frequency. MUSCULOSKELETAL: Denies neck and back pain. Denies joint pain or swelling. SKIN: Denies rash, itchiness, or lesions HEMATOLOGIC : Denies easy bruising or bleeding. LYMPHATIC: Denies swollen, painful, enlarged glands. NEUROLOGICAL: Denies no numbness or tingling denies weakness. Denies headache. Denies altered mental status. Denies alteration in speech. PSYCHIATRIC: Denies stress, anxiety, alteration in sleep patterns, or depression. All other systems reviewed and negative. (AARTI CANADA) Physical Exam <AARTI CANADA - Last Filed: 08/24/19 20:41> - Vital signs Vitals: Resp 23 H 08/24/19 18:23 - Notes Notes: PHYSICAL EXAMINATION: GENERAL: Appears well, healthy, well-nourished, no acute distress. HEAD: Normocephalic, atraumatic. EYES: PERRL, conjunctiva normal, all extraocular movements intact, sclera nonicteric ENT: Moist mucous membranes. NECK: Supple, no noticeable swelling, redness, rash. Normal range of motion. LUNGS: Coarse breath sounds bilaterally. CARDIOVASCULAR: S1-S2, regular rate, regular rhythm. Radial pulses 2+, normal. ABDOMEN: Normoactive bowel sounds. Soft, rounded, moderately tender generalized abdomen, no guarding, no rebound tenderness, and no masses palpated. EXTREMITIES: Normal strength and range of motion, no pitting or edema. No cyanosis. NEUROLOGICAL: Mainly flaccid, but able to move lower extremities slightly. PSYCH: Normal mood, normal affect. SKIN: Warm, dry. No rash, lesions, ulcerations noted. Normal skin turgor. (AARTI CANADA) Course - Laboratory Result Diagrams: 08/24/19 18:30 08/24/19 18:30 <AARTI CANADA - Last Filed: 08/24/19 20:41> - Laboratory Result Diagrams: 08/24/19 18:30 08/24/19 18:30 <ZARI COLVIN - Last Filed: 08/25/19 08:13> - Laboratory Result Diagrams: 08/24/19 18:30 08/24/19 18:30 <NATALYA FARRELL - Last Filed: 08/25/19 15:10> - Re-evaluation Re-evalutation: 08/24/19 20:21 I was giving bedside report to JERAD Munoz. Patient began to get nauseous and ended up vomiting. Zofran ordered. Patient also most likely aspirated. We will start him on Zosyn. Acute abdominal x-ray shows stool in the rectum. Will order a enema for the patient. Patient has a slight leukocytosis of 11,900. No anemia noted. Chemistries are unremarkable, other than calcium of 10.5. Liter of IV fluids ordered. JERAD Munoz will follow-up on CT. 08/24/19 20:38 Patient ended up vomiting again. Orders for NG tube. (AARTI CANADA) 08/24/19 21:58 Patient was turned over to by Aarti [place] [employer] INSPECTOR. We entered the room to digitally disimpact the patient and he had an episode of vomiting. Patient was suctioned. Discussed case with Dr. Farrell who agrees with NG tube. NG tube not suctioning well. Recommend discussing with surgery. Dr. Horton was called. Stated that based on xray, there is no small bowel obstruction and he is constipated and that NG tube will not be beneficial. Patient was digitally disimpacted. A large amount of stool was removed. Patient continues to remain tachypneic and tachycardic requiring 4 L nasal cannula. O2 sats are in the low 90's. RR fluctulating between upper 20's and 40's. Patient currently receiving enema and pending CT scan. 08/25/19 00:46 Patient is currently not on 4 L nasal cannula his respiration rate is 35 and his SPO2 is 92. He is on 4 L nasal cannula his respiration rate is in the upper teens and his SPO2 is around 95-96. He has pulled out his NG tube. I discussed patient with Dr. Lux. He is agreeable to observation. Patient admission initiated. Patient states that he does not want to stay. After further discussion patient states that he will stay until morning. I have multiple times reported to the patient that he can either go upstairs for observation or be discharge home AGAINST MEDICAL ADVICE as I have concerns of him developing aspiration pneumonia and his tachypneia. Patient continues to report that he will stay here until the morning. I discussed with patient that they have a room upstairs for him. He states he will not stay another day here but will stay here until morning. Patient has a room upstairs. (ZARI COLVIN) 08/25/19 15:08 Patient was seen in conjunction with STREET OPENINGS INSPECTOR and PA. In short this patient has severe constipation, vomiting. Patient was seen. He was actively vomiting, covered in vomit, having difficulty handling the volume of emesis. His abdomen was distended. NG was placed with little output. Digital disimpaction and enema did result in large bowel movement. There was concern about the possi bility of aspiration, especially given his ALS. Patient remained tachypneic. He agreed to stay overnight in the hospital. (NATALYA FARRELL) - Vital Signs Vital signs: Temp Pulse Resp BP Pulse Ox 97.9 F 73 21 H 146/93 H 93 08/25/19 11:46 08/25/19 11:46 08/25/19 11:46 08/25/19 11:46 08/25/19 11:46 - Laboratory Laboratory results interpreted by me: 08/24/19 08/24/19 08/24/19 18:30 18:30 21:32 WBC 11.9 H RDW 17.4 H Absolute Neuts (auto) 9.2 H VBG pCO2 32.9 L Calcium 10.5 H Urine Ascorbic Acid 08/24/19 22:07 WBC RDW Absolute Neuts (auto) VBG pCO2 Calcium Urine Ascorbic Acid 40 H Discharge <AARTI CANADA - Last Filed: 08/24/19 20:41> - Discharge Admitting Provider: Jose J (Hospitalist) Unit Admitted: Telemetry <ZARI COLVIN - Last Filed: 08/25/19 08:13> <NATALYA FARRELL - Last Filed: 08/25/19 15:10> - Discharge Clinical Impression: Tachypnea Constipation Qualifiers: Constipation type: other constipation type Qualified Code(s): K59.09 - Other constipation Disposition: ADMITTED OBSERVATION
[2019-08-24 19:02] LABS: ABSOLUTE EOSINOPHILS # (AUTO) 0.1 10^3/uL (0.0-0.6); ABSOLUTE LYMPHOCYTES (AUTO) 1.7 10^3/uL (0.5-4.7); ABSOLUTE MONOCYTES (AUTO) 0.9 10^3/uL (0.1-1.4); ABSOLUTE NEUT (AUTO) 9.2 10^3/uL (1.7-8.2); BASOPHILS % (AUTO) 0.4 % (0-2); EOSINOPHILS % (AUTO) 1.2 % (0-6); HEMATOCRIT 44.4 % (37.9-51.0); HEMOGLOBIN 15.1 g/dL (13.5-17.0); LYMPHOCYTES % (AUTO) 13.9 % (13-45); MEAN CORPUSCULAR HEMOGLOBIN 29.6 pg (27.0-33.4); MEAN CORPUSCULAR HGB CONC 33.9 g/dL (32.0-36.0); MEAN CORPUSCULAR VOLUME 87 fl (80-97); MONOCYTES % (AUTO) 7.5 % (3-13); PLATELET COUNT 306 10^3/uL (150-450); RED BLOOD COUNT 5.09 10^6/uL (4.35-5.55); RED CELL DISTRIBUTION WIDTH 17.4 % (11.5-14.0); TOTAL CELLS COUNTED % (AUTO) 100 %; WHITE BLOOD COUNT 11.9 10^3/uL (4.0-10.5)
[2019-08-24 19:25] LABS: ALBUMIN 4.6 g/dL (3.5-5.0); ALKALINE PHOSPHATASE 89 U/L (38-126); ANION GAP 10 (5-19); ASPARTATE AMINO TRANSFERASE 29 U/L (17-59); BILIRUBIN,DIRECT 0.1 mg/dL (0.0-0.4); BILIRUBIN,TOTAL 0.4 mg/dL (0.2-1.3); BLOOD UREA NITROGEN 9 mg/dL (7-20); CALCIUM 10.5 mg/dL (8.4-10.2); CARBON DIOXIDE 25 mmol/L (22-30); CHLORIDE 106 mmol/L (98-107); GLUCOSE 106 mg/dL (75-110); POTASSIUM 4.2 mmol/L (3.6-5.0); TOTAL PROTEIN 8.2 g/dL (6.3-8.2)
--- NOTE | 2019-08-24 20:15 | RADIOLOGY REPORT (SQ) ---
CLINICAL INDICATION: constipation. TECHNIQUE: 3 image(s) of the abdomen. COMPARISON: None. FINDINGS: Dilated air-filled loops of small and large bowel. Fecal impaction within the rectum. No evidence of free air. Osteoarthritis. IMPRESSION: Dilated air-filled small and large bowel. Fecal impaction within the rectum.
[2019-08-24] MEDS ORDERED: ONDANSETRON HCL INJ/PF 4 MG/2 ML SDV IV ONE (20:18)
[2019-08-24] MEDS ORDERED: NORMAL SALINE 1000 ML 1,000 ML IV ONE (20:20)
[2019-08-24] MEDS ORDERED: PIPERACILLIN/TAZOBACTAM 3.375 GM VIAL IV ONE (20:20)
[2019-08-24] MEDS ORDERED: FENTANYL CITRATE INJ/PF 100 MCG/2 ML AMPUL IV ONE (21:10)
--- NOTE | 2019-08-24 21:22 | RADIOLOGY REPORT (SQ) ---
EXAM DESCRIPTION: XR CHEST 1 VIEW COMPLETED DATE/TME: 08/24/2019 00:00 CLINICAL HISTORY: 54 years, Male, NG tube placement confirmation Compared to 08/24/2019 at 7:41 PM. Findings: Enteric tube is in place with tip below the diaphragm. Markedly dilated loops of bowel are again noted to correlate with prior study.
[2019-08-24 21:45] LABS: VENOUS BLOOD BASE EXCESS -3.3 mmol/L; VENOUS BLOOD HCO3 20.5 mmol/L (20-32); VENOUS BLOOD PCO2 32.9 mmHg (35-63); VENOUS BLOOD PH 7.41 (7.30-7.42)
[2019-08-24 22:33] LABS: APPEARANCE,URINE CLEAR; BILIRUBIN,URINE NEGATIVE (NEGATIVE); COLOR,URINE YELLOW; GLUCOSE, URINE NEGATIVE (NEGATIVE); KETONES,URINE NEGATIVE (NEGATIVE); LEUKOCYTE ESTERASE,URINE NEGATIVE (NEGATIVE); NITRITE,URINE NEGATIVE (NEGATIVE); PROTEIN,URINE NEGATIVE (NEGATIVE); URINE SPECIFIC GRAVITY 1.017; UROBILINOGEN,URINE NEGATIVE mg/dL (<2.0)
--- NOTE | 2019-08-24 23:36 | RADIOLOGY REPORT (SQ) ---
EXAM DESCRIPTION: CT ABDOMEN PELVIS WITHOUT IV CONTRAST COMPLETED DATE/TME: 08/24/2019 20:24 CLINICAL HISTORY: 54 years, Male, eval obstruction? COMPARISON: Prior CT from 01/09/2019; 09/16/2013 TECHNIQUE: Noncontrast CT of the abdomen/pelvis was acquired. Coronal and sagittal reformations were created. Images stored on PACS. All CT scanners at this facility use dose modulation, iterative reconstruction, and/or weight based dosing when appropriate to reduce radiation dose to as low as reasonably achievable (ALARA). [facility]: Dose Right [facility]: CareDose [facility]: Dose Right [facility]: Teradose 4D [facility]: [employer] LIMITATIONS: None. FINDINGS: Limited evaluation of the lower chest reveals mild bibasilar consolidative opacity. Enteric drainage tube coils within the gastric fundus. Calcifications are evident about the coronary vessels. The liver, spleen, pancreas, and both adrenal glands appear normal. Gallbladder is absent. Several nephroliths are noted about both kidneys, measuring between 2 to 3 mm in size. In addition, there is a hyperdense lesion located within the lower pole of the left kidney measuring 0.9 x 0.9 cm in size, too small to definitively characterize though most likely indicative of a hemorrhagic/proteinaceous renal cyst given its density and stability from 09/16/2013. There is no hydronephrosis or hydroureter. The urinary bladder is collapsed, thus its evaluation is limited. Small bilateral fat-containing inguinal hernias are noted. The colon appears diffusely dilated and fluid-filled. No transition point is identified. The degree of dilatation appears most pronounced about the ascending and transverse segments. Appendix is normal. Small bowel is normal in caliber. No evidence of small bowel obstruction. Calcifications are evident about the abdominal aorta and proximal iliac vessels. No suspicious lymphadenopathy or drainable fluid collections are appreciated. Bone windows show no destructive osseous lesions. IMPRESSION: Diffuse colonic dilatation without transition point identified. The degree of dilatation appears most pronounced about the ascending and transverse segments of the colon. Overall, colonic ileus/Tony syndrome should be considered. Nonobstructive bilateral nephrolithiasis. Bibasilar consolidative opacity, presumably atelectasis though a component of infection is also a possibility. TECHNICAL DOCUMENTATION: Quality ID # 436: Final reports with documentation of one or more dose reduction techniques (e.g., Automated exposure control, adjustment of the mA and/or kV according to patient size, use of iterative reconstruction technique) copyright 2010 [facility] [employer]- All Rights Reserved
--- NOTE | 2019-08-25 00:37 | RADIOLOGY REPORT (SQ) ---
EXAM DESCRIPTION: XR CHEST 1 VIEW COMPLETED DATE/TME: 08/24/2019 23:52 CLINICAL HISTORY: 54 years Male, shortness of breath COMPARISON: One day prior. NUMBER OF VIEWS/TECHNIQUE: 1/AP FINDINGS: Dilated bowel in the upper abdomen measures up to 5.4 cm in diameter partially imaged consistent with abnormal CT from one day prior. Mild extensive interstitial markings. Small linear atelectasis or scar bilateral lung bases. Moderate lung volume. Atherosclerosis.Normal cardiac silhouette size. No pneumothorax. Stable bony thorax. IMPRESSION: 1. Mild interstitial markings. Differential diagnosis includes pulmonary edema, atypical pneumonitis, and chronic interstitial lung disease. 2. Dilated bowel in the upper abdomen measures up to 5.4 cm in diameter partially imaged consistent with abnormal CT from one day prior.
[2019-08-25] MEDS ORDERED: ONDANSETRON HCL INJ/PF 4 MG/2 ML SDV IV PRN (01:43)
--- NOTE | 2019-08-25 02:27 | PDOC H&P ---
History of Present Illness History of Present Illness: LAURENT PENG is a 54 year old male with a history of ALS and COPD who came to the ER with abdominal distention and [address] scan showed dilated loops of small bowel but no definite transition point. General surgery was consulted and recommended disimpaction. He had an NG tube that was in place but during the process of the disimpaction he got sick to his stomach and vomited. There was concern that he had aspirated. He did not spike a fever but he was a little tachypneic. His oxygenation on room air was around 93%. He said he felt a little short of breath but did not feel like he was in any distress. He pulled out his NG tube. He did have bowel sounds afterwards and had an enema that produced a voluminous bowel movement. However, because he had vomited there was concern he had aspirated because he had very rhonchorous breath sounds. Because of his history of COPD and ALS with a relatively weak ventilatory effort, it was decided to keep him for observation overnight. Past Medical History Cardiac Medical History: Reports: Hyperlipidema, Hypertension Pulmonary Medical History: Reports: Bronchitis, Chronic Obstructive Pulmonary Disease (COPD) - inhalers, Sleep Apnea, Tuberculosis - 2 years ago exposure GI Medical History: Reports: Gastroesophageal Reflux Disease, Hiatal Hernia Denies: Hepatitis Musculoskeltal Medical History: Reports: Arthritis - mild Psychiatric Medical History: Reports: Bipolar Disorder, Depression Hematology: Denies: Anemia, Sickle Cell Disease Past Surgical History Past Surgical History: Reports: Cholecystectomy, Orthopedic Surgery - Injured left leg Social History Smoking Status: Current Every Day Smoker Frequency of Alcohol Use: Occasional Hx Recreational Drug Use: Yes Drugs: Cocaine, Marijuana Hx Prescription Drug Abuse: No Family History Family History: Reviewed & Not Pertinent, CAD Parental Family History Reviewed: Yes Children Family History Reviewed: Yes Sibling(s) Family History Reviewed.: Yes Medication/Allergy Home Medications: Albuterol Sulfate [Proair HFA Inhalation Aerosol 8.5 gm MDI] 2 puff IH Q4 PRN 03/17/19 Albuterol Sulfate [Ventolin 0.083% Neb 2.5 mg/3 mL Ampul] 2.5 mg NEB RTQ6 09/26 Amlodipine Besylate [Norvasc 5 mg Tablet] 5 mg PO DAILY 03/17/19 Baclofen 5 mg PO TID 03/17/19 Duloxetine HCl [Cymbalta 30 mg Capsule.dr] 30 mg PO DAILY 03/17/19 Fentanyl [Duragesic 25 mcg/hr Transdermal Patch] 1 each TD Q3D 03/17/19 Fentanyl [Duragesic 50 Mcg/Hr Transdermal Patch] 1 patch TD Q3D 03/17/19 Fluticasone/Salmeterol [Advair 500-50 Diskus 14 Dose/Diskus] 1 inh IH Q12 03/17/19 Lactulose 30 ml PO DAILYP PRN 03/17/19 Omeprazole 40 mg PO DAILY 03/17/19 Pregabalin 300 mg PO QID 03/17/19 Trazodone HCl 400 mg PO QHS 03/17/19 Oxycodone HCl [Oxy-Ir 5 mg Tablet] 5 mg PO Q4HP PRN 03/19/19 Acetaminophen [Tylenol 325 mg Tablet] 650 mg PO Q4HP PRN tablet 03/20/19 Azithromycin 250 mg PO DAILY #3 tablet 03/20/19 Fluticasone/Vilanterol [Breo 200-25 Mcg Ellipta 14 Dose/Dpi] 1 inh IH DAILY #1 inhaler 03/20/19 Guaifenesin [Mucinex Sr 600 mg Tablet.sa] 600 mg PO Q12 #14 tablet.sa 03/20/19 Allergies/Adverse Reactions: Iodinated Contrast Media [Iodinated Contrast- Oral and IV Dye] Allergy (Verified 09/27/18 08:45) Review of Systems All systems: reviewed and no additional remarkable complaints except as stated - All systems were reviewed and were negative except as noted in the HPI Physical Exam Vital Signs: Temp Pulse Resp BP Pulse Ox 99 F 41 H 134/86 H 92 08/24/19 18:25 08/24/19 23:01 08/24/19 23:00 08/24/19 23:01 Intake & Output 08/23/19 08/24/19 08/25/19 06:59 06:59 06:59 Intake Total 1000 Balance 1000 Weight 74.1 kg General appearance: PRESENT: no acute distress, cooperative, disheveled Head exam: PRESENT: atraumatic, normocephalic Eye exam: PRESENT: EOMI, PERRLA. ABSENT: conjunctival injection, nystagmus, scleral icterus Ear exam: PRESENT: normal external ear exam Mouth exam: PRESENT: moist, neck supple Throat exam: ABSENT: post pharyngeal erythema Neck exam: PRESENT: full ROM. ABSENT: carotid bruit, JVD, lymphadenopathy, meningismus, tenderness, thyromegaly Respiratory exam: PRESENT: rhonchi - Worse on the left, tachypnea - He took more shallow and more rapid respirations but did not appear to be distressed by this, unlabored. ABSENT: accessory muscle use, chest wall tenderness, crackles, prolonged expiratory phas, stridor, wheezes Cardiovascular exam: PRESENT: RRR, +S1, +S2 Pulses: PRESENT: normal carotid pulses Vascular exam: PRESENT: normal capillary refill GI/Abdominal exam: PRESENT: distended - Mild, normal bowel sounds, soft. ABSENT: guarding, rebound, tenderness Extremities exam: ABSENT: clubbing, pedal edema Musculoskeletal exam: PRESENT: normal inspection. ABSENT: deformity Neurological exam: PRESENT: alert, awake, oriented to person, oriented to place, oriented to situation, CN II-XII grossly intact, motor sensory deficit - He was diffusely weak in general Psychiatric exam: PRESENT: flat affect Skin exam: PRESENT: dry, warm Results Laboratory Results: 08/24/19 18:30 08/24/19 18:30 08/24/19 08/24/19 08/24/19 18:30 18:30 18:30 WBC 11.9 H RBC 5.09 Hgb 15.1 Hct 44.4 MCV 87 MCH 29.6 MCHC 33.9 RDW 17.4 H Plt Count 306 Seg Neutrophils % 77.0 VBG pH VBG pCO2 VBG HCO3 VBG Base Excess Sodium 141.2 Potassium 4.2 Chloride 106 Carbon Dioxide 25 Anion Gap 10 BUN 9 Creatinine 0.54 Est GFR ( Amer) > 60 Glucose 106 Calcium 10.5 H Total Bilirubin 0.4 AST 29 Alkaline Phosphatase 89 Total Protein 8.2 Albumin 4.6 Lipase 71.4 Urine Color Urine Appearance Urine pH Ur Specific Clarissa Urine Protein Urine Glucose (UA) Urine Ketones Urine Blood Urine Nitrite Ur Leukocyte Esterase Urine WBC (Auto) Urine RBC (Auto) 08/24/19 08/24/19 21:32 22:07 WBC RBC Hgb Hct MCV MCH MCHC RDW Plt Count Seg Neutrophils % VBG pH 7.41 VBG pCO2 32.9 L VBG HCO3 20.5 VBG Base Excess -3.3 Sodium Potassium Chloride Carbon Dioxide Anion Gap BUN Creatinine Est GFR ( Amer) Glucose Calcium Total Bilirubin AST Alkaline Phosphatase Total Protein Albumin Lipase Urine Color YELLOW Urine Appearance CLEAR Urine pH 5.0 Ur Specific Clarissa 1.017 Urine Protein NEGATIVE Urine Glucose (UA) NEGATIVE Urine Ketones NEGATIVE Urine Blood NEGATIVE Urine Nitrite NEGATIVE Ur Leukocyte Esterase NEGATIVE Urine WBC (Auto) 2 Urine RBC (Auto) 1 Impressions: Acute Abdomen Series 08/24/19 18:49 IMPRESSION: Dilated air-filled small and large bowel. Fecal impaction within the rectum. Abdomen/Pelvis CT 08/24/19 20:24 IMPRESSION: Diffuse colonic dilatation without transition point identified. The degree of dilatation appears most pronounced about the ascending and transverse segments of the colon. Overall, colonic ileus/Success syndrome should be considered. Nonobstructive bilateral nephrolithiasis. Bibasilar consolidative opacity, presumably atelectasis though a component of infection is also a possibility. TECHNICAL DOCUMENTATION: Quality ID # 436: Final reports with documentation of one or more dose reduction techniques (e.g., Automated exposure control, adjustment of the mA and/or kV according to patient size, use of iterative reconstruction technique) copyright 2011 [employer]- All Rights Reserved Chest X-Ray 08/24/19 23:52 IMPRESSION: 1. Mild interstitial markings. Differential diagnosis includes pulmonary edema, atypical pneumonitis, and chronic interstitial lung disease. 2. Dilated bowel in the upper abdomen measures up to 5.4 cm in diameter partially imaged consistent with abnormal CT from one day prior. Assessment and Plan - Diagnosis (1) Aspiration into respiratory tract Qualifiers: Encounter type: initial encounter Qualified Code(s): T17.908A - Unspecified foreign body in respiratory tract, part unspecified causing other injury, initial encounter Is this a current diagnosis for this admission?: Yes Plan: He has not manifested any signs of fever or respiratory decompensation yet. I think that the tachypnea may actually be baseline for him. With his general motor weakness, I think he may be compensating for his lower tidal volumes by increasing his respiratory rate. As previously noted, because of his ALS and COPD we decided to keep him for observation overnight. He got a dose of Zosyn in the ER but I have not started him on any subsequent antibiotics. We will monitor for signs and symptoms of infection. (2) COPD (chronic obstructive pulmonary disease) Qualifiers: COPD type: unspecified COPD Qualified Code(s): J44.9 - Chronic obstructive pulmonary disease, unspecified Is this a current diagnosis for this admission?: Yes Plan: We will continue his home medications (3) Constipation Qualifiers: Constipation type: other constipation type Qualified Code(s): K59.09 - Other constipation Is this a current diagnosis for this admission?: Yes Plan: Now resolved (4) Amyotrophic lateral sclerosis Is this a current diagnosis for this admission?: Yes - Time Time Spent with patient: 35 or more minutes Anticipated discharge: Home with Homehealth Within: within 48 hours
[2019-08-25] MEDS: HEPARIN SOD (PORCINE) 5,000 UNIT/ML 1 ML VIAL SUBCUT SCH ×3 (05:55→21:44)
[2019-08-25] MEDS: OXYCODONE HCL IR 5 MG TABLET PO PRN ×3 (06:53→21:43)
[2019-08-25] MEDS ORDERED: METHADONE HCL 1 MG/ML 30 ML BOTTLE PO ONE (11:32)
--- NOTE | 2019-08-25 11:56 | EKG REPORT ---
SEVERITY:- NORMAL ECG - SINUS RHYTHM : Confirmed by: Rodrick Fernandez MD 25-Aug-2019 11:55:30
[2019-08-25] MEDS ORDERED: METHADONE HCL 10 MG TABLET PO ONE (12:00)
[2019-08-25] MEDS: AMLODIPINE BESYLATE 5 MG TABLET PO SCH (13:14)
[2019-08-25] MEDS: LORATADINE 10 MG TABLET PO SCH (13:14)
[2019-08-25] MEDS: DULOXETINE HCL 30 MG CAPSULE.DR PO SCH ×2 (13:14→21:42)
[2019-08-25] MEDS ORDERED: PREGABALIN 300 MG PO SCH (14:00)
[2019-08-25] MEDS: PREGABALIN 100 MG CAPSULE PO SCH ×3 (14:46→21:42)
[2019-08-25] MEDS: UMECLIDINIUM BROMIDE 62.5 MCG/DOSE IH SCH (14:46)
[2019-08-25] MEDS: LORAZEPAM 0.5 MG TABLET PO PRN (16:07)
[2019-08-25] MEDS ORDERED: TRAZODONE HCL 50 MG TABLET PO PRN (16:20)
--- NOTE | 2019-08-25 16:28 | Left Against Medical Advice ---
Against Medical Advice Admission Date/Time: 08/25/19 01:59 Primary Care Provider: Date of Patient Emigration: 08/25/19 - Diagnosis: (1) Aspiration into respiratory tract Is this a current diagnosis for this admission?: Yes (2) COPD (chronic obstructive pulmonary disease) Is this a current diagnosis for this admission?: Yes (3) Constipation Is this a current diagnosis for this admission?: Yes (4) Amyotrophic lateral sclerosis Is this a current diagnosis for this admission?: Yes - Summary: Summary: Please see Admission and Progress Notes as well. LAURENT PENG is a 54 M, who LEFT AGAINST MEDICAL ADVICE. The Patient was admitted on 08/25/19 01:59. Notified by nursing early this morning that the patient was not satisfied with his current pain medication regimen. Patient's home medication regiment was verified utilizing the [place] controlled substance database. Most recently, he received full 30-day prescriptions of methadone 5 mg twice daily, Ativan 0.5 mg 3 times daily, and Lyrica 300 mg every 8 hours. He was also prescribed oxycodone 20 mg #55. Per [employer], this is marked as a 30 day Rx; allowing for 1.5 tabs daily on average. Nursing reports that the patient has had multiple bowel movements, is no longer having nausea and vomiting and has stable vital signs. Therefore, the medication orders were adjusted to reflect his home regimen. Early this afternoon, I received notification by nursing that the patient was continuing to refuse medications and demanding to discharge to home. He was briefly seen at bedside; noted to be A&Ox4, agitated, with shallow respirations in the mid 20s. He is advised that we are continuing to monitor f or evidence of aspiration following his event in the ER early this morning. He is encouraged to remain in house with plan discharge early tomorrow morning if his vital signs and respiratory status remained stable. The patient declined; he is adamant that he be discharged home at this time. He is advised that he will need to sign out AGAINST MEDICAL ADVICE. He confirmed that this is his intent to do so. Due to inability to personally signed the form, both his primary nurse, Zayra Tobias, and myself signed the AMA form as witness to his verbal request/demands.
[2019-08-25] MEDS ORDERED: ALBUTEROL SULFATE HFA (90 MCG/PUFF) 8 GM MDI IH PRN (16:45)
[2019-08-25] MEDS ORDERED: (PENDING PHARMACY ID) (Methadone Hcl [Dolophine Hcl] 5 MG) PO SCH (18:00)
[2019-08-25] MEDS: METHADONE HCL 10 MG TABLET PO SCH (21:42)
[2019-08-25] MEDS ORDERED: RILUZOLE 50 MG PO SCH (22:00)
[2019-08-26] MEDS: LORAZEPAM 0.5 MG TABLET PO PRN (00:19)
[2019-08-26] MEDS ORDERED: PANTOPRAZOLE SODIUM 40 MG TABLET.DR PO SCH (06:00)
[2019-08-26] MEDS: HEPARIN SOD (PORCINE) 5,000 UNIT/ML 1 ML VIAL SUBCUT SCH ×2 (06:05→14:24)
[2019-08-26] MEDS: PREGABALIN 100 MG CAPSULE PO SCH ×2 (06:15→15:50)
[2019-08-26 06:53] LABS: HEMATOCRIT 39.5 % (37.9-51.0); HEMOGLOBIN 13.6 g/dL (13.5-17.0); MEAN CORPUSCULAR HEMOGLOBIN 29.7 pg (27.0-33.4); MEAN CORPUSCULAR HGB CONC 34.4 g/dL (32.0-36.0); MEAN CORPUSCULAR VOLUME 86 fl (80-97); PLATELET COUNT 282 10^3/uL (150-450); RED BLOOD COUNT 4.58 10^6/uL (4.35-5.55); WHITE BLOOD COUNT 9.2 10^3/uL (4.0-10.5)
[2019-08-26] MEDS ORDERED: ALBUTEROL SULFATE HFA (90 MCG/PUFF) 200 PUFF/8.5 GM MDI IH PRN (07:05)
[2019-08-26 07:25] LABS: ANION GAP 7 (5-19); BLOOD UREA NITROGEN 9 mg/dL (7-20); CALCIUM 10.3 mg/dL (8.4-10.2); CARBON DIOXIDE 26 mmol/L (22-30); CHLORIDE 108 mmol/L (98-107); GLUCOSE 106 mg/dL (75-110); POTASSIUM 3.5 mmol/L (3.6-5.0)
[2019-08-26] MEDS ORDERED: [UNRECOGNIZED DRUG - OTHER] IH SCH (10:00)
[2019-08-26] MEDS: DULOXETINE HCL 30 MG CAPSULE.DR PO SCH (10:48)
[2019-08-26] MEDS: LORATADINE 10 MG TABLET PO SCH (10:48)
[2019-08-26] MEDS: METHADONE HCL 10 MG TABLET PO SCH (10:48)
[2019-08-26] MEDS: AMLODIPINE BESYLATE 5 MG TABLET PO SCH (10:48)
[2019-08-26] MEDS: UMECLIDINIUM BROMIDE 62.5 MCG/DOSE IH SCH (10:50)
--- NOTE | 2019-08-26 12:46 | Progress Note ---
Provider Note Provider Note: Patient signed out AMA yesterday; remains in house due to his family being out of town (does not have keys to enter home). Nursing reports family will arrive home this afternoon and transport will be arranged at that time. Patient continues to intermittently refuse vital signs/ADL care. Did take morning medications. Vital Signs currently stable; maintaining SpO2 WNL on room air. Patient appears comfortable and is not noted to be in any acute distress. Nursing advised that hospitalist service remains available for any needs or clinical condition changes.
[2019-08-26] MEDS: OXYCODONE HCL IR 5 MG TABLET PO PRN (15:50)
[2019-08-26 16:23] VITALS: BP 156/90
== END 2019-08-26 16:00 | disposition left against medical advice (07) ==
LOC: ER 18:21 → EH 08-25 01:59 → 4N 08-25 03:20
PROVIDERS: ADMIT Family Medicine; ATTEND Registered Nurse
DX: K59.09 Other constipation (principal); T17.908A Unspecified foreign body in respiratory tract, part unspecified causing other injury, initial encounter; X58.XXXA Exposure to other specified factors, initial encounter; G12.21 Amyotrophic lateral sclerosis; J44.9 Chronic obstructive pulmonary disease, unspecified; R45.1 Restlessness and agitation; R06.89 Other abnormalities of breathing; R06.82 Tachypnea, not elsewhere classified; R00.0 Tachycardia, unspecified; R11.2 Nausea with vomiting, unspecified; M19.90 Unspecified osteoarthritis, unspecified site; I10 Essential (primary) hypertension; F17.200 Nicotine dependence, unspecified, uncomplicated; K21.9 Gastro-esophageal reflux disease without esophagitis; Z79.891 Long term (current) use of opiate analgesic; Z79.899 Other long term (current) drug therapy; Z90.49 Acquired absence of other specified parts of digestive tract; Z82.49 Family history of ischemic heart disease and other diseases of the circulatory system; Z79.51 Long term (current) use of inhaled steroids; Z87.01 Personal history of pneumonia (recurrent); Z86.11 Personal history of tuberculosis
CPT/HCPCS: 93005; 99285; 96361; 96375; 96365; 36415 ×2; 83690; 85025; 85027; 80048; 80053; 81001; 82803; 74022; 71045; 74176; 93010; G0378 ×3; J3490 ×12; J3010; J2405; J7030; J2543

== ENCOUNTER 2019-10-03 10:20 | Emergency (ER) | payer MEDICAID ==
--- NOTE | 2019-10-03 11:33 | RADIOLOGY REPORT (SQ) ---
EXAM DESCRIPTION: CHEST SINGLE VIEW IMAGES COMPLETED DATE/TIME: 10/03/2019 11:22 am REASON FOR STUDY: dyspnea COMPARISON: 08/25/2019 EXAM PARAMETERS: NUMBER OF VIEWS: One view. TECHNIQUE: Single frontal radiographic view of the chest acquired. RADIATION DOSE: NA LIMITATIONS: None. FINDINGS: LUNGS AND PLEURA: Bilateral basilar atelectasis. Possible effusions. No pneumothorax or focal consolidation. MEDIASTINUM AND HILAR STRUCTURES: No masses. Contour normal. HEART AND VASCULAR STRUCTURES: Stable in appearance. BONES: No acute findings. HARDWARE: None in the chest. OTHER: No other significant finding. IMPRESSION: Basilar atelectasis. Probable small effusions. TECHNICAL DOCUMENTATION: JOB ID: [id number] 2010 [employer]- All Rights Reserved Reading location - IP/workstation name: [email or web address]
[2019-10-03] MEDS ORDERED: VANCOMYCIN HCL INJ 1000 MG VIAL IV ONE (11:39)
[2019-10-03] MEDS ORDERED: PIPERACILLIN/TAZOBACTAM 3.375 GM VIAL IV ONE (11:39)
[2019-10-03] MEDS ORDERED: METHYLPREDNISOLONE INJ 125 MG/2 ML SDV IV ONE (11:40)
[2019-10-03] MEDS ORDERED: IPRATROPIUM/ALBUTEROL 0.5-2.5 MG/3 ML AMPUL NEB ONE ×2 (11:40→14:54)
--- NOTE | 2019-10-03 11:53 | ER Document Report ---
ED General - General Chief Complaint: Shortness Of Breath Stated Complaint: SHORTNESS OF BREATH/COUGH Time Seen by Provider: 10/03/19 10:58 TRAVEL OUTSIDE OF THE [place] IN LAST 30 DAYS: No - HPI Notes: Chief complaint: Breathing problems History of present illness: 54-year-old male sent to the emergency department via EMS from [facility] after he presented to their clinic complaining of increased difficulty breathing and cough progressively worsening over the past 2 weeks noted to be associated with a low oxygen saturation of 88%. Patient is not normally on oxygen at home. He has a long history of ALS and chronic pain syndrome and is on high doses of oral narcotics. We note that he was in the hospital here approximately 5 weeks ago with an episode of aspiration pneumonitis and signed himself out AMA at that time. He smokes about 1 pack of cigarettes per day. Also has a history of sleep apnea syndrome. Patient is somewhat belligerent and argumentative to refuse here today stating that he does not want to be in the hospital and would like to get some treatment and be discharged immediately. Patient denies travel. He denies any known exposure to COVID positive individuals. I have reviewed extensive records from recent inpatient hospitalization for this man. Medication list from [facility] was sent over for this patient includes the following: Vitamin B6 100 mg daily Oxycodone 20 mg 5 times daily Morphine sulfate 15 mg bedtime Lorazepam 0.5 mg 3 times daily Riluzole 50 mg every 12 hours Advair Diskus 500/51 puff twice daily Omeprazole 40 mg daily Lactulose as needed Duloxetine 30 mg twice daily Nystatin topically as needed Spiriva 18 mcg daily Claritin as needed 10 mg Keflex 500 mg 2 capsules daily Trazodone 100 mg 4 tablets at bedtime Lyrica 300 mg 3 times daily Albuterol nebulizer 2.5 mg 4 times daily as needed Pro-air 90 mcg 2 puffs every 4-6 hours as needed - Related Data Allergies/Adverse Reactions: Iodinated Contrast Media [Iodinated Contrast- Oral and IV Dye] Allergy (Verified 09/27/18 08:45) Past Medical History - General Information source: Patient, Emergency Med Personnel, [facility] Records - Social History Smoking Status: Current Every Day Smoker Frequency of alcohol use: None Drug Abuse: None Lives with: Family Family History: Reviewed & Not Pertinent, CAD - Past Medical History Cardiac Medical History: Reports: Hx Hypercholesterolemia, Hx Hypertension Pulmonary Medical History: Reports: Hx Bronchitis, Hx COPD, Hx Sleep Apnea, Hx Tuberculosis - 2 years ago exposure Neurological Medical History: Reports: Other - ALS Renal/ Medical History: Reports: Hx Kidney Stones GI Medical History: Reports: Hx Gastroesophageal Reflux Disease, Hx Hiatal Hernia, Hx Pancreatitis - ETOH. Denies: Hx Hepatitis Musculoskeletal Medical History: Reports Hx Arthritis - mild, Reports Hx Musculoskeletal Deformity, Reports Hx Musculoskeletal Trauma Psychiatric Medical History: Reports: Hx Anxiety, Hx Bipolar Disorder, Hx Depression, Hx Schizophrenia Infectious Medical History: Denies: Hx Hepatitis Past Surgical History: Reports: Hx Cholecystectomy, Hx Orthopedic Surgery - Injured left leg, Hx Pancreatic Surgery, Hx Umbilical Hernia - Immunizations Hx Diphtheria, Pertussis, Tetanus Vaccination: No - 11/12/18 Review of Systems - Review of Systems Notes: Constitutional: Negative for fever. HENT: Negative for sore throat. Eyes: Negative for visual changes. Cardiovascular: Negative for chest pain. Respiratory: As per HPI. Producing scant amounts of yellow sputum. Denies hemoptysis. Gastrointestinal: Negative for abdominal pain, vomiting or diarrhea. Genitourinary: Negative for dysuria. Musculoskeletal: Negative for back pain. Skin: Negative for rash. Neurological: Negative for headaches, focal weakness or numbness. 10 point ROS negative except as marked above and in HPI. Physical Exam - Vital signs Vitals: Temp 98.1 F 10/03/19 10:23 Notes: GENERAL: Cachectic male approximately stated age exhibiting minimally labored respirations. SKIN: Good turgor no rashes. HEAD: Mild bitemporal wasting. EYES: PERRLA. EOMI. Conjunctivae and sclerae clear. EARS: CANALS AND TMS CLEAR. NOSE: CLEAR. MOUTH: Voice is somewhat hoarse and weak and patient states this is his usual baseline moist mucosa. Good dentition. No stridor or edema. No drooling. NECK: Supple. No masses or thyromegaly. No adenopathy. Carotids 2+ without bruits. No JVD. BACK: Symmetrical without tenderness. CHEST: Mildly tachypneic with mild use of accessory muscles. Scattered faint wheezes and rhonchi bilaterally. Slight rattling cough. HEART: Regular rhythm. No murmur gallop or rub. ABDOMEN: Soft nontender without masses, organomegaly or rebound. Bowel sounds normally active. No bruits. GENITALIA: Deferred. EXTREMITIES: Old surgical scar and deformity of left lower leg related to previous fracture and surgery. No edema. No calf tenderness. Cap refill less than 1.5 seconds. Dorsalis pedis and posterior tibial pulses 3+ and symmetrical. NEUROLOGICAL: GCS 15. Alert and oriented x3. Fluent speech. Cranial nerves II through XII intact. Sensorimotor and cerebellar normal. Normal tone. PSYCHIATRIC: Flat affect. Course - Re-evaluation Re-evalutation: 10/03/19 14:59 This is a gentleman who has ALS and severe COPD who unfortunately continues to smoke in excess of a pack cigarettes per day. He is presented today with some m inimal infiltrates versus atelectasis at both bases and COPD exacerbation with some mild hypoxemic respiratory failure. His ABG did not show significant decompensation in terms of his PCO2 which is chronically elevated or his pH. He is oxygenating well now 3 L of nasal O2. We will draw blood cultures and obtain routine labs which showed an unremarkable chemistry profile a normal white count. Unfortunately we had difficulty getting IV access for this patient. He is refused a central line. He is refusing admission. States he wants to sign himself out AMA. At this time he is oriented x3 and hemodynamically stable and I think he has capacity to decline further care. He fully understands that this could result in permanent disability or . I gave him an IM injection of Rocephin. I have also given him some oral azithromycin and oral prednisone. I spoke with patient's mother, Mrs. Kristine Mckeon at her home by telephone. She states that she intends to come to the hospital to talk with him directly try to persuade him to stay. I have also spoken with his primary care provider Mary Jane DE LA CRUZ. She knows this gentleman well and says that he is basically "end-stage". She had made arrangements for him to go to a retirement previously and he ultimately decided he was not willing to do this. She is also talked with him previously about setting up hospice care but he was simply unwilling to pursue this option. I have asked for a consultation with the case management service and we want to try to set up some home O2 at this point having exhausted other options I suspect he will be allowed to sign himself out AGAINST MEDICAL ADVICE. 10/03/19 16:50 I have spoken with our case management team. We have not been able to arrange any home oxygen for this patient until tomorrow. Patient still insistent that he wants discharge. We turned his oxygen off and kept him on room air and his current O2 saturation on room air is 89%. I again tried to convince him to stay for admission but he is adamant that he wishes to sign himself out AGAINST MEDICAL ADVICE. He indicates that he is fully aware that this decision could lead to acute deterioration or . - Vital Signs Vital signs: Temp Pulse Resp BP Pulse Ox 98.5 F 12 109/74 97 10/03/19 11:02 10/03/19 15:01 10/03/19 15:01 10/03/19 15:01 - Laboratory Result Diagrams: 10/03/19 12:38 10/03/19 12:38 Laboratory results interpreted by me: 10/03/19 10/03/19 10/03/19 12:38 12:38 12:38 RDW 17.3 H Lymph % (Auto) 11.4 L Seg Neutrophils % 78.1 H Carbonic Acid ABG pH ABG pCO2 ABG pO2 ABG HCO3 ABG Total CO2 Carbon Dioxide 31 H Creatinine 0.46 L Lactic Acid < 0.5 L 10/03/19 12:38 RDW Lymph % (Auto) Seg Neutrophils % Carbonic Acid 1.97 H ABG pH 7.34 L ABG pCO2 65.4 H ABG pO2 78.4 L ABG HCO3 34.3 H ABG Total CO2 36.3 H Carbon Dioxide Creatinine Lactic Acid - Diagnostic Test Radiology reviewed: Reports reviewed - Portable chest x-ray per radiologist: Patchy bibasilar infiltrates versus atelectasis with questionable small bilateral effusions. - EKG Interpretation by Me When compared to previous EKG there are: Other - Twelve-lead EKG from 1137 hrs. reviewed contemporaneously by me demonstrating normal sinus rhythm with a rate of 80 and a normal QRS axis of +10 degrees. Intervals are normal. There are no acute ST/T wave changes present impression: Normal tracing. Indication for current study: Dyspnea. Discharge - Discharge Clinical Impression: COPD exacerbation, ALS, Chronic pain syndrome, Cigarette smoking Pneumonia Qualifiers: Pneumonia type: due to unspecified organism Laterality: bilateral Lung locati on: lower lobe of lung Qualified Code(s): J18.9 - Pneumonia, unspecified organism Disposition: AGAINST MEDICAL ADVICE Additional Instructions: Return here immediately if you change your mind and wish to be admitted. Follow-up with your physician by telephone tomorrow. Take prescribed medications. Prescriptions: Azithromycin 250 mg PO ASDIR PRN #6 tablet PRN Reason: Prednisone [Deltasone 20 mg Tablet] 2 tab PO DAILY 5 Days tablet Forms: Smoking Cessation Education
[2019-10-03 12:56] LABS: ABSOLUTE EOSINOPHILS # (AUTO) 0.1 10^3/uL (0.0-0.6); ABSOLUTE MONOCYTES (AUTO) 0.7 10^3/uL (0.1-1.4); ABSOLUTE NEUT (AUTO) 6.6 10^3/uL (1.7-8.2); BASOPHILS % (AUTO) 0.4 % (0-2); EOSINOPHILS % (AUTO) 1.7 % (0-6); HEMATOCRIT 39.6 % (37.9-51.0); HEMOGLOBIN 13.5 g/dL (13.5-17.0); LYMPHOCYTES % (AUTO) 11.4 % (13-45); MEAN CORPUSCULAR HEMOGLOBIN 29.9 pg (27.0-33.4); MEAN CORPUSCULAR HGB CONC 34.1 g/dL (32.0-36.0); MEAN CORPUSCULAR VOLUME 88 fl (80-97); MONOCYTES % (AUTO) 8.4 % (3-13); PLATELET COUNT 268 10^3/uL (150-450); RED BLOOD COUNT 4.51 10^6/uL (4.35-5.55); RED CELL DISTRIBUTION WIDTH 17.3 % (11.5-14.0); SEGMENTED NEUTROPHILS % (AUTO) 78.1 % (42-78); TOTAL CELLS COUNTED % (AUTO) 100 %; WHITE BLOOD COUNT 8.4 10^3/uL (4.0-10.5)
[2019-10-03 13:05] LABS: INTERNATIONAL RATION (INR) 0.96; PARTIAL THROMBOPLASTIN TIME 33.5 SEC (23.5-35.8)
[2019-10-03 13:25] LABS: ALBUMIN 4.1 g/dL (3.5-5.0); ALKALINE PHOSPHATASE 78 U/L (38-126); ANION GAP 6 (5-19); ASPARTATE AMINO TRANSFERASE 20 U/L (17-59); BILIRUBIN,DIRECT 0.4 mg/dL (0.0-0.4); BILIRUBIN,TOTAL 0.6 mg/dL (0.2-1.3); BLOOD UREA NITROGEN 9 mg/dL (7-20); CALCIUM 9.4 mg/dL (8.4-10.2); CARBON DIOXIDE 31 mmol/L (22-30); CHLORIDE 105 mmol/L (98-107); GLUCOSE 98 mg/dL (75-110); POTASSIUM 4.4 mmol/L (3.6-5.0); TOTAL PROTEIN 6.4 g/dL (6.3-8.2)
[2019-10-03] MEDS ORDERED: CEFTRIAXONE INJ 250 MG VIAL IM ONE ×2 (13:53→13:55)
[2019-10-03 13:55] LABS: ARTERIAL BLOOD BASE EXCESS 6.2 mmol/L; ARTERIAL BLOOD FIO2 2L; ARTERIAL BLOOD H2CO3 1.97 mmol/L (1.05-1.35); ARTERIAL BLOOD HCO3 34.3 mmol/L (20-24); ARTERIAL BLOOD O2 SATURATION 94.5 % (94-98); ARTERIAL BLOOD PCO2 65.4 mmHg (35-45); ARTERIAL BLOOD PH 7.34 (7.35-7.45); ARTERIAL BLOOD PO2 78.4 mmHg (80-100); ARTERIAL BLOOD TOTAL CO2 36.3 mmol/L (23-27)
[2019-10-03] MEDS ORDERED: AZITHROMYCIN 250 MG TABLET PO ONE (14:51)
[2019-10-03] MEDS ORDERED: PREDNISONE 20 MG TABLET PO ONE (14:51)
[2019-10-03] MEDS ORDERED: CEFTRIAXONE INJ 1000 MG VIAL IM ONE (15:10)
[2019-10-03] MEDS ORDERED: LIDOCAINE 1% INJ-PF (10 MG/ML) 30 ML SDV ONE (15:15)
[2019-10-03 18:50] VITALS: BP 141/88
--- NOTE | 2019-10-03 22:00 | EKG REPORT ---
SEVERITY:- NORMAL ECG - SINUS RHYTHM : Confirmed by: Carly Spain MD 03-Oct-2019 21:59:51
== END 2019-10-03 19:00 | disposition left against medical advice (07) ==
LOC: ER 10:20
DX: J44.0 Chronic obstructive pulmonary disease with (acute) lower respiratory infection (principal); J18.9 Pneumonia, unspecified organism; J44.1 Chronic obstructive pulmonary disease with (acute) exacerbation; J96.91 Respiratory failure, unspecified with hypoxia; G89.4 Chronic pain syndrome; G12.21 Amyotrophic lateral sclerosis; R05 Cough; R49.0 Dysphonia; F17.210 Nicotine dependence, cigarettes, uncomplicated; I10 Essential (primary) hypertension; K21.9 Gastro-esophageal reflux disease without esophagitis; Z79.891 Long term (current) use of opiate analgesic; Z79.899 Other long term (current) drug therapy; Z79.2 Long term (current) use of antibiotics; Z79.51 Long term (current) use of inhaled steroids; Z91.041 Radiographic dye allergy status; Z53.29 Procedure and treatment not carried out because of patient's decision for other reasons
CPT/HCPCS: 93005; 94640; 99285; 96372; 36415; 87040; 82803; 83605; 83735; 85025; 85610; 85730; 80053; 84484; 83880; 71045; 93010; Q0144; J3490; J7512; J0696